=== PATIENT | female | born 1945 | race Caucasian/White ===

== ENCOUNTER → 2023-05-01 09:53 | Outpatient (REF) | payer OTHER, SELFPAY | LOC: HWRAD 09:53 | PROVIDERS: ATTENDING PHYSICIAN Urology; FAMILY PHYSICIAN Family Medicine | DX: A41.51 Sepsis due to Escherichia coli [E. coli] (principal); N39.41 Urge incontinence | CPT/HCPCS: 76770 ==

== ENCOUNTER → 2023-05-04 06:23 | Day surgery (SDC) | payer OTHER, SELFPAY | LOC: GI 06:23 | PROVIDERS: ATTENDING PHYSICIAN Internal Medicine Gastroenterology | DX: Z12.11 Encounter for screening for malignant neoplasm of colon (principal); K57.30 Diverticulosis of large intestine without perforation or abscess without bleeding; K64.8 Other hemorrhoids; K20.90 Esophagitis, unspecified without bleeding; K22.89 Other specified disease of esophagus; K31.89 Other diseases of stomach and duodenum; R13.10 Dysphagia, unspecified; Z86.010 Personal history of colon polyps; Z80.0 Family history of malignant neoplasm of digestive organs | CPT/HCPCS: 43239; G0105; 88305; 87220; 88342 ==

== ENCOUNTER → 2023-12-07 09:43 | Outpatient (REF) | payer OTHER, SELFPAY | LOC: RAD 09:43 | PROVIDERS: ATTENDING PHYSICIAN Surgery Vascular Surgery; FAMILY PHYSICIAN Family Medicine | DX: I65.23 Occlusion and stenosis of bilateral carotid arteries (principal) | CPT/HCPCS: 93880 ==

== ENCOUNTER 2023-12-30 08:49 | Day surgery (SDC) | payer OTHER, SELFPAY ==
[2023-12-30 09:54] VITALS: BP 151/64
[2023-12-30 10:02] VITALS: BMI 28.5
[2023-12-30 12:29] VITALS: BP 136/59
== END 2023-12-30 13:35 | disposition home or self-care (01) ==
LOC: CATH 08:49
PROVIDERS: ATTENDING PHYSICIAN Internal Medicine Cardiovascular Disease; FAMILY PHYSICIAN Family Medicine; OTHER PHYSICIAN Internal Medicine Cardiovascular Disease
DX: Z09 Encounter for follow-up examination after completed treatment for conditions other than malignant neoplasm (principal); R55 Syncope and collapse; I10 Essential (primary) hypertension; E78.00 Pure hypercholesterolemia, unspecified; Z87.891 Personal history of nicotine dependence; Z79.82 Long term (current) use of aspirin
CPT/HCPCS: 33286

== ENCOUNTER 2024-02-13 21:18 | Observation (INO) | payer OTHER, SELFPAY ==
[2024-02-13 11:49] VITALS: BP 159/77
--- NOTE | 2024-02-13 12:12 | ED.GENMED ---
History of Present Illness
<Isabel Daniels PA-C - Last Filed: 02/13/24 18:21>
General
Chief Complaint: Headache
Source: patient
Exam Limitations: none
Time Seen by Provider: 02/13/24 11:55
History of Present Illness
History of Present Illness:
78yoF with a history of hypertension and hyperlipidemia presenting with her daughter for evaluation of a headache. Patient was sitting on the couch watching TV last night around 10 PM when she had a fairly abrupt onset of a headache. She states
the pain was initially in her bilateral eye region. The pain then radiated up towards the top of her head. She was eventually able to go to bed but the pain was still present when she woke up this morning. Patient denies any history of similar
headaches in the past. She currently rates her pain as an 8/10 in severity. She describes the headache as feeling like a brain freeze. She also reports associated photophobia, phonophobia, and nausea. She also reports feeling dizzy when she
stands up which she describes as feeling 'shaky.' She denies any vertiginous symptoms or lightheadedness. She denies any vomiting, fevers, neck stiffness, weakness, paresthesias. No reported head trauma.
Past History
<Isabel Daniels PA-C - Last Filed: 02/13/24 18:21>
Past History
ED Past Medical History: Asthma, HTN and Hypercholesterolemia
ED Past Surgical History: Orthopedic and Urological
Social History
Tobacco: Non-smoker
Alcohol: None
Drug: None
Employment: Retired
Phy Exam
<Isabel Daniesl PA-C - Last Filed: 02/13/24 18:21>
Physical Exam
Physical Exam:
Sitting in a dark room, appears uncomfortable, non-toxic
General Physical Exam
General age: appears stated age
General Skin: warm and dry
General Habitus: elderly
General Mental: alert
ENT Exam
ENT Exam: TM's normal, neck supple and normocephalic
Additional ENT: No meningismus
Eye Exam
Eye Exam: PERRL, EOMI and other (Pressure 13mmHg in R eye, 14mmHg in L eye)
Pulmonary Exam
Pulmonary Exam: no respiratory distress
Neurological Exam
Neurological Exam: alert, CN II-XII intact, no motor deficits, speech normal and other (CN 2-12 intact. PERRL. EOMs intact. Negative driftx4. 5/5 strength in all extremities. No focal neuro deficit appreciated.)
Avinash Coma Scale
Eye Opening: Spontaneous
Verbal Response: Oriented
Motor Response: Obeys Commands
GCS Total Score: 15
Skin Exam
Skin Exam: normal color and warm/dry
Psychiatric Exam
Psychiatric Exam: normal mood/affect
<Gatito Mckeon MD - Last Filed: 02/13/24 18:17>
[place] Coma Scale
GCS Total Score: 15
Course
<Isabel Daniels PA-C - Last Filed: 02/13/24 18:21>
Orders/Labs/Results
Orders:
Orders
02/13/24 12:09
CT Head W/o Iv Contrast Urgent
Comment:
Reason For Exam: Acute headache
0.9% Sodium Chloride 500 ml [Nss] 500 ml IV BOLUS
Acetaminophen [Tylenol] 1,000 mg PO NOW STA
Magnesium Sulfate 2 Gram/50 ml [Magnesium Sulfate] 2 gram in 50 ml IV NOW
Ondansetron Injectable [Zofran] 4 mg IV NOW STA
02/13/24 12:15
Electrocardiogram (*1) Urgent
Reason for Study: Vertigo / Dizzy
EKG- Treatment ONCE
02/13/24 12:35
Magnesium Sulfate 2 Gram/50 ml [Magnesium Sulfate] 2 gram in 50 ml .ROUTE .STK-MED
02/13/24 12:39
Magnesium Sulfate 2 Gram/50 ml [Magnesium Sulfate] 2 gram in 50 ml .ROUTE .STK-MED
02/13/24 13:08
COVID-19 Antigen Urgent
Source: Nasal Swab
CRP [C-Reactive Protein] Urgent
Complete Blood Count/With Diff Urgent
Comprehensive Metabolic Panel Urgent
ESR [Erythrocyte Sed Rate] Urgent
Influenza A+B Rapid Molecular Urgent
SHAYLA Source: Nasal Swab
Specimen Description:
02/13/24 15:28
CT Head & Neck Angio W/wo IV Urgent
Comment:
Reason For Exam: Acute onset headache
0.9% Sodium Chloride 500 ml [Nss] 500 ml IV BOLUS
Dexamethasone Sod Phosphate [Decadron] 10 mg IV NOW STA
Ketorolac [Toradol] 15 mg IV NOW STA
02/13/24 18:12
NEUROLOGY CONSULT Routine
Consulting Provider: Matteo Choi
Was physician already notified: Yes
Abnormal Lab Results
02/13/24
13:08
Absolute Neuts (auto) 6.6 H 10^3/uL
(1.4-6.5)
Absolute Monos (auto) 1.0 H 10^3/uL
(0.1-0.6)
ESR 27 H mm/hour
(0-20)
Glucose 116 H mg/dl
(70-99)
Alkaline Phosphatase 127 H U/L
(38-126)
02/13/24 13:08
02/13/24 13:08
Vital Signs
Initial and Last Documented VS:
Initial Vital Signs
Temp Pulse Resp BP Pulse Ox
97.5 F 103 16 159/77 98
02/13/24 11:49 02/13/24 11:49 02/13/24 11:49 02/13/24 11:49 02/13/24 11:49
Last Documented Vital Signs
Temp Pulse Resp BP Pulse Ox
97.5 F 81 16 144/60 94
02/13/24 13:14 02/13/24 18:00 02/13/24 18:00 02/13/24 14:56 02/13/24 14:45
<Gatito Mckeon MD - Last Filed: 02/13/24 18:17>
Orders/Labs/Results
Orders:
Orders
02/13/24 12:09
CT Head W/o Iv Contrast Urgent
Comment:
Reason For Exam: Acute headache
0.9% Sodium Chloride 500 ml [Nss] 500 ml IV BOLUS
Acetaminophen [Tylenol] 1,000 mg PO NOW STA
Magnesium Sulfate 2 Gram/50 ml [Magnesium Sulfate] 2 gram in 50 ml IV NOW
Ondansetron Injectable [Zofran] 4 mg IV NOW STA
02/13/24 12:15
Electrocardiogram (*1) Urgent
Reason for Study: Vertigo / Dizzy
EKG- Treatment ONCE
02/13/24 12:35
Magnesium Sulfate 2 Gram/50 ml [Magnesium Sulfate] 2 gram in 50 ml .ROUTE .STK-MED
02/13/24 12:39
Magnesium Sulfate 2 Gram/50 ml [Magnesium Sulfate] 2 gram in 50 ml .ROUTE .STK-MED
02/13/24 13:08
COVID-19 Antigen Urgent
Source: Nasal Swab
CRP [C-Reactive Protein] Urgent
Complete Blood Count/With Diff Urgent
Comprehensive Metabolic Panel Urgent
ESR [Erythrocyte Sed Rate] Urgent
Influenza A+B Rapid Molecular Urgent
SHAYLA Source: Nasal Swab
Specimen Description:
02/13/24 15:28
CT Head & Neck Angio W/wo IV Urgent
Comment:
Reason For Exam: Acute onset headache
0.9% Sodium Chloride 500 ml [Nss] 500 ml IV BOLUS
Dexamethasone Sod Phosphate [Decadron] 10 mg IV NOW STA
Ketorolac [Toradol] 15 mg IV NOW STA
02/13/24 18:12
NEUROLOGY CONSULT Routine
Consulting Provider: Matteo Choi
Was physician already notified: Yes
Abnormal Lab Results
02/13/24
13:08
Absolute Neuts (auto) 6.6 H 10^3/uL
(1.4-6.5)
Absolute Monos (auto) 1.0 H 10^3/uL
(0.1-0.6)
ESR 27 H mm/hour
(0-20)
Glucose 116 H mg/dl
(70-99)
Alkaline Phosphatase 127 H U/L
(38-126)
02/13/24 13:08
02/13/24 13:08
Vital Signs
Initial and Last Documented VS:
Initial Vital Signs
Temp Pulse Resp BP Pulse Ox
97.5 F 103 16 159/77 98
02/13/24 11:49 02/13/24 11:49 02/13/24 11:49 02/13/24 11:49 02/13/24 11:49
Last Documented Vital Signs
Temp Pulse Resp BP Pulse Ox
97.5 F 81 16 144/60 94
02/13/24 13:14 02/13/24 18:00 02/13/24 18:00 02/13/24 14:56 02/13/24 14:45
[place];Isabel Daniels PA-C - Last Filed: 02/13/24 18:21>
MDM/Problems Addressed
Differential Diagnosis Includes:
78yoF here with an acute headache that started last night. Abrupt in onset. Associated with nausea, photophobia, phonophobia. No history of similar headaches in the past. She is mildly hypertensive with otherwise normal vital signs. She is sitting
in a dark room on exam and appears uncomfortable. No meningismus or focal neuro deficits noted. Differential diagnosis includes but is not limited to: glaucoma, intracranial hemorrhage, temporal arteritis, viral illness, migraine, tension headache
Initial ED plan: Check CBC, CMP, ESR/CRP, EKG, and CT head. Tylenol, Zofran, magnesium, and fluid bolus ordered for symptoms.
<Isabel Daniels PA-C - Last Filed: 02/13/24 18:21>
*EKG
Interpreted by ED Provider?: Yes
EKG Intrepretation Date: 02/13/24
Heart Rate: 88
Rate: normal
Rhythm: sinus
[place]: normal axis
Interval: normal interval
QRS Pattern: normal QRS
Ischemia: no ischemia
*Critical Care Note
Total Time (30-74mins, 75-104mins- exclusive of procedures): Not Applicable
<Isabel Daniels PA-C - Last Filed: 02/13/24 18:21>
Update Note
Update Note:
CT head is negative for acute findings. ESR mildly elevated at 27, CRP is normal. Patient feeling improved after initial medications but symptoms are still present. Headache now a 4-5/10 in severity. CTA head/neck added. Patient signed out to
Linda awaiting CTA results.
ED Attending Note
<Isabel Daniels PA-C - Last Filed: 02/13/24 18:21>
-
Portions of this chart may have been created with voice recognition software.� Occasional wrong word or��sound alike� substitutions may have occurred due to the inherent limitations of voice recognition software.
<Gatito Mckeon MD - Last Filed: 02/13/24 18:17>
ED Attending Note
Patient seen and examined by attending physician: Yes
ED Attending Note:
I have seen and evaluated the patient with a [id number] encounter. I have spoken to the advance practicer provider and involved in the medical history, the physical exam, medical decision making.
Evaluation and management service: agree unless noted differently below.
Results interpretation: agree unless noted differently below.
Focused HPI: 78-year-old female with history of hypertension hyperlipidemia, TIA who presents to the ER with her daughter for evaluation of headache. Patient reports abrupt onset of symptoms last night while she was sitting on the couch and have
been constant since that time. She reports headache was in the frontoparietal region. She describes 'like an intense brain freeze.' Symptoms were constant all night and she could not sleep and this morning she had associated dizziness and
significant photophobia, nausea. Came to the ER for assessment. She denies any trauma. She denies any eye pain. She denies any vision loss. She denies any neck pain or stiffness. She denies any focal weakness or numbness in the extremities.
She denies any difficulties with speech. She has never had similar symptoms in the past.
Physical exam: Awake and alert not in distress. Vital signs noted for hypertension in triage normalized by my assessment. She has no signs of trauma to the head. Her neck is supple without meningismus and she has no tenderness of the cervical
spine. Her pupils are equal round and reactive to light bilaterally and her extraocular movements are intact although she is markedly photosensitive. Cranial nerves are intact 2 through 12. Speech is fluid no dysarthria or aphasia. No limb
ataxia. Motor and sensory intact upper and lower extremities.
Medical Decision Makin-year-old female presents for evaluation of thunderclap headache started last night abruptly at rest and has been consistent and worsening. Vitals and exam as above. We sent off labs including a CBC and a CMP which were
unremarkable. ESR not markedly elevated. CT head negative for any acute pathology. CTA head and neck shows no aneurysm although incidental vascular disease. We did treat her symptomatically here and although his symptoms improved they have not
resolved. I long discussion with patient and daughter that she does appear very well after ED treatment. Diagnosis unclear at this point she did have some significant degenerative disease in the neck that could contribute to headache, could be
tension headache, could be migraine but unusual for new headache in a 78-year-old. They feel uneasy going home as she is still symptomatic and diagnosis unclear and I think this is reasonable. Will plan to admit, consult to neurology. Case
discussed with hospitalist.
Discharge Plan
Departure
Patient Disposition: Admit
Date of Disposition: 02/13/24
Time of Disposition: 18:17
Admit to doctor: Ger
Presentation/result/management discussed w/ accepting /DO: Hospitalist
Discharge Problem:
Intractable headache
Prescriptions:
No Action
sertraline 100 MG tablet
100 mg PO DAILY
dicyclomine 20 MG tablet
20 mg PO BID
diphenhydramine HCl [Banophen] 25 MG capsule
50 mg PO BIDPRN PRN (Reason: allergies)
cholecalciferol (vitamin D3) 2,000 UNITS tablet
4,000 units PO DAILY
fluticasone furoate-vilanterol [Breo Ellipta] 1 EACH blister with device
1 puff inhalation R DAILY
esomeprazole magnesium [Nexium] 20 MG capsule,delayed release(DR/EC)
20 mg PO BID
metoprolol succinate 50 mg tablet extended release 24 hr
50 mg PO DAILY
amlodipine 10 mg tablet
10 mg PO DAILY
albuterol sulfate 90 mcg/actuation HFA aerosol inhaler
2 puff INHALATION Q4HPRN PRN (Reason: shortness of breath)
mirabegron [Myrbetriq] 50 mg tablet extended release 24 hr
50 mg PO DAILY
Caltrate 600 plus D 600 mg-20 mcg (800 unit) Tablet,Chewable
1 tab PO DAILY
aspirin 81 MG tablet,delayed release (DR/EC)
81 mg PO DAILY
meloxicam 15 mg tablet
15 mg PO DAILY PRN (Reason: moderate pain)
ezetimibe 10 mg tablet
10 mg PO QPM
rosuvastatin 40 mg tablet
40 mg PO DAILY
acetaminophen 325 mg Tablet
650 mg PO Q4HPRN PRN (Reason: mild pain/MOORE/temp> 100.4F) Qty: 1 0RF
Referrals:
Sam Wheeler DO [Family Provider] -
Interventions
Interventions:
*Risk Screen - Suicide Last Done: 02/13/24 11:49
*General Assessment Last Done: 02/13/24 11:49
*Neglect/Abuse Screening Last Done: 02/13/24 11:49
ED- Fall Risk Assessment Last Done: 02/13/24 13:00
*ED COVID-19 Vaccine History Last Done: 02/13/24 13:00
ED- Neurological Assessment Last Done: 02/13/24 13:00
Discharge Date and Time
Print Language: CITIZEN OF [place]
[2024-02-13] MEDS: ZOFRAN 4 MG IV (12:58)
[2024-02-13] MEDS: NSS 500 IV ×2 (13:00→15:44)
[2024-02-13] MEDS: TYLENOL 1000 MG PO (13:00)
[2024-02-13] MEDS: MAGNESIUM SULFATE 50 IV (13:00)
[2024-02-13 13:13] VITALS: BMI 25.8
[2024-02-13 13:29] LABS: ALT (SGPT) 20 U/L (0-35); AST (SGOT) 31 U/L (14-36); Albumin 4.8 g/dl (3.5-5.0); Alkaline Phosphatase 127 U/L (38-126); Blood Urea Nitrogen 15 mg/dl (7-17); Calcium 9.5 mg/dl (8.4-10.2); Carbon Dioxide 28 mmol/L (22-30); Chloride 102 mmol/L (98-107); Estimated Creatinine Clearance 56 ml/min; Glucose 116 mg/dl (70-99); Potassium 4.3 mmol/L (3.5-5.1); Sodium 139 mmol/L (135-145); Total Bilirubin 0.4 mg/dl (0.2-1.3); Total Protein 7.8 g/dl (6.3-8.2); eGFR > 60.00
[2024-02-13 13:36] LABS: COVID-19 Antigen Negative (Negative)
[2024-02-13 13:48] LABS: Erythrocyte Sed Rate 27 mm/hour (0-20)
[2024-02-13 13:50] LABS: % Basophils 0.6 % (0-2); % Eosinophils 1.3 % (0-6); % Immature Granulocytes 0.4 % (0-0.5); % Lymphocytes 25.3 % (20.5-51.1); % Monocytes 9.2 % (1.7-9.3); % Neutrophils 63.2 % (42.2-75.2); Absolute Basophils 0.1 10^3/uL (0-0.2); Absolute Eosinophils 0.1 10^3/uL (0-0.7); Absolute Lymphocytes 2.7 10^3/uL (1.2-3.4); Absolute Neutrophils 6.6 10^3/uL (1.4-6.5); Hematocrit 43.7 % (37.0-47.0); Hemoglobin 14.5 g/dL (12.0-16.0); Mean Corp Hgb Conc. 33.2 g/dL (33.0-37.0); Mean Corpuscular Hgb 30.7 pg (27.0-31.0); Mean Corpuscular Volume 92.6 fL (81.0-99.0); Mean Platelet Volume 8.6 fL (7.4-10.4); Nucleated Red Blood Cells % 0 %; Platelet Count 330 10^3/uL (130-400); Red Blood Cell Count 4.72 10^6/uL (4.20-5.40); Red Cell Dist. Width 13.2 % (11.5-14.5); White Blood Cell Count 10.5 10^3/uL (4.8-10.8)
[2024-02-13 14:56] VITALS: BP 144/60
[2024-02-13] MEDS: DECADRON 10 MG IV (15:45)
[2024-02-13] MEDS: TORADOL 15 MG IV (15:45)
--- NOTE | 2024-02-13 18:49 | HPS.HSE ---
Family Physician
-
Family Physician: Sam Wheeler
Chief Complaint
-
Headache
History of Present Illness
This is a 78-year-old female with past medical history significant for asthma, hypertension, hyperlipidemia and osteoporosis who presents to the emergency department with new onset thunderclap headache.
Patient denies any prior history of headaches. Reports that she suddenly had nausea yesterday. She went to the bed to relax she developed a headache that is worsened with lights as well as sounds. She reports that the headache felt like a brain
freeze that travels across the forehead to the top of her head. It is continued to be associated with nausea but no vomiting. She denies any numbness or tingling. She denies any weakness in her extremities. The headaches persisted at home so she
decided to come to the emergency department. She denies any known exacerbating factors besides lights and sounds. Patient denies having any fever. She denies any neck stiffness. She denies any rash. She has no recent falls. She denies any
cough runny nose sinus congestion or sore throat. Unchanged in the 140s over 60s. She denies any palpitations.
On arrival in the emergency department she was afebrile, blood pressure was 144/60 with a pulse of 89. CBC was unremarkable. Electrolytes BUN/creatinine were also within normal limits. ECG shows normal sinus rhythm at a rate of 88. ESR was
negative. She had a CT of the head which shows no acute intracranial process, negative for bleed or mass. She had CT angio which shows no dissection, emboli/thrombus or aneurysm. After initial management in the ED the patient reports that she is
much improved.
Medical History
Past Medical History
Past Medical History: Reports Asthma, HTN and Hypercholesterolemia
Additional Past Medical History:
Osteoporosis
Past Surgical History: Reports Orthopedic and Urological
Social History
Tobacco: Non-smoker
Alcohol: None
Drug: None
Personal: Single
Living: With Family
Employment: Retired
Family History
Family History: Not pertinent
Allergies / Home Medications
Allergies reflects when Allergies were last updated in [employer].
Home Medications with original date entered in [employer]
Allergy/Medication List:
Allergies
Allergy/AdvReac Type Severity Reaction Status Date / Time
ibandronate sodium Allergy Nausea / Verified 02/13/24 13:06
[From [facility]] Vomiting
Home Medications
cholecalciferol (vitamin D3) 50 mcg (2,000 unit) tablet 4,000 units PO DAILY Supplement 10/19/19
dicyclomine 20 mg tablet 20 mg PO BID Gastrointestinal Issue 10/19/19
esomeprazole magnesium 20 mg capsule,delayed release (Nexium) 40 mg PO DAILY Gastrointestinal issue 10/19/19
sertraline 100 mg tablet 100 mg PO DAILY Depression 10/19/19
albuterol sulfate 90 mcg/actuation aerosol inhaler 2 puff inhalation R Q4HPRN PRN shortness of breath 09/15/22
amlodipine 10 mg tablet 10 mg PO DAILY Blood Pressure 09/15/22
aspirin 81 mg tablet,delayed release 81 mg PO DAILY Blood Clot Prevention/Tx 09/15/22
calcium 600 mg (as carbonate)-vit D3 20 mcg (800 unit) chewable tablet (Caltrate plus D) 1 tab PO DAILY Supplement 09/15/22
metoprolol succinate 50 mg tablet,extended release 24 hr 50 mg PO DAILY Blood Pressure 09/15/22
mirabegron 50 mg tablet,extended release 24 hr (Myrbetriq) 50 mg PO DAILY Urinary Issue 09/15/22
ezetimibe 10 mg tablet 10 mg PO DAILY 02/13/23
meloxicam 15 mg tablet 15 mg PO DAILYPRN PRN moderate pain 02/13/23
rosuvastatin 40 mg tablet 40 mg PO HS 02/13/23
acetaminophen 500 mg tablet 1,000 mg PO BIDPRN PRN mild pain 02/13/24
famotidine 40 mg tablet 40 mg PO DAILY 02/13/24
fluticasone furoate 200 mcg-vilanterol 25 mcg/dose inhalation powder (Breo Ellipta) 1 inh inhalation R DAILY 02/13/24
Review of Systems
-
History Source: Patient
Constitutional: Reports No Symptoms
EENT: Reports No Symptoms
Respiratory: Reports No Symptoms
Cardiac: Reports No Symptoms
Abdomen/GI: Reports Nausea
: Reports No Symptoms
Musculoskeletal: Reports No Symptoms
Skin: Reports No Symptoms
Neurological: Reports Headache
Endocrine: Reports No Symptoms
Hematologic/Lymphatic: Reports No Symptoms
Psych: Reports No Symptoms
Physical Exam
Vital Signs
Vital Signs
Temp Pulse Resp BP Pulse Ox
97.5 F 81 16 144/60 94
02/13/24 13:14 02/13/24 18:00 02/13/24 18:00 02/13/24 14:56 02/13/24 14:45
Physical Exam
General: Well Developed, Well Nourished and Comfortable
HEENT: NormoCephalic, Anicteric, Moist mucous membranes and Atraumatic
Respiratory: Clear
Cardiac: S1/S2 and Regular Rhythm
Breast: Deferred by me
GI: Soft, Non Tender, Non Distended and Normal Bowel Sounds
Rectal: Deferred by Provider
Genito-urinary: Deferred by me
Musculoskeletal: No Clubbing, No Cyanosis and No Edema
Skin: Warm
Neuro: AO x 3, No Motor Deficits, Cranial Nerves Intact and No Sensory Deficits
Hematologic/Lymphatic: No Lymphadenopathy
Psych: Calm
Laboratory Results
-
02/13/24 13:08
02/13/24 13:08
Laboratory Results
Total Bilirubin 0.4 mg/dl (0.2-1.3) 02/13/24 13:08
AST 31 U/L (14-36) 02/13/24 13:08
ALT 20 U/L (0-35) 02/13/24 13:08
Alkaline Phosphatase 127 U/L (38-126) H 02/13/24 13:08
Data Reviewed
-
CT Scan: Report Reviewed by me
Medical Tests (Nuc Med, Echo, EKG etc): Image Personally Visualized and interpreted
Lab Data: Labs Reviewed by me
Old Records: Reviewed
Impression/Plan
-
IMPRESSION:
78 y.o female with abrupt development of severe headache associated with nausea, photophobia and phonophobia. No precipitating event. Not positional and no acute neurological deficits. She has no systemic symptoms, h/o neoplasm or trauma. Imaging
in ED rules out intracranial hemorrhage, dissection, aneurysm or a obvious mass. No neck stiffness, fevers or rash, no leukocytosis. No evidence of acute infection. Mental status is normal and no evidence of encephalopathy or encephalitis. ESR
is not elevated and patient without visual complaints. The remaining alarming concerns are age after 50 and no prior history. May need further neurological evaluation as unlikely late onset development of migraines.
PLAN:
Headache -
- admit to med/surg
- neurology consult
- hold off further imaging pending neurology
- analgesics with toradol/metoclopromide as needed
- DVT ppx with scd for now
HTN
- BP is well controlled, continue norvasc and metoprolol
Has h/o TIAs but no current evidence of such. continue aspirin/statin
Continue home asthma management
Code status - full code
[2024-02-14] MEDS: CRESTOR 40 MG PO (01:05)
[2024-02-14] MEDS: TUMS CHEWABLE TABLET 200 MG PO (03:50)
[2024-02-14] MEDS: TORADOL 15 MG IV (03:52)
[2024-02-14] MEDS: REGLAN 10 MG IV (03:53)
[2024-02-14 06:00] VITALS: BMI 25.8
[2024-02-14 07:32] VITALS: BP 119/62
[2024-02-14] MEDS: SYMBICORT 160/4.5 MCG INHALER 2 PUFF INH (07:59)
[2024-02-14] MEDS: ZOLOFT 100 MG PO (08:28)
[2024-02-14] MEDS: PEPCID 40 MG PO (08:28)
[2024-02-14] MEDS: TOPROL XL 50 MG PO (08:28)
[2024-02-14] MEDS: MYRBETRIQ EXTENDED RELEASE 50 MG PO (08:28)
[2024-02-14] MEDS: ZETIA 10 MG PO (08:28)
[2024-02-14] MEDS: PROTONIX 40 MG PO (08:28)
[2024-02-14] MEDS: ASPIR LOW (ENTERIC COATED) 81 MG PO (08:28)
[2024-02-14] MEDS: NORVASC 10 MG PO (08:29)
--- NOTE | 2024-02-14 13:17 | CON.NEURO ---
Neuro Assessment/Plan
Assessment
head CT imgs rev'd, extensive white matter microvascular changes
CTA head/neck showing Left carotid bifurcation 50-70%, Left ECA >70% stenosis, all presently appearing asymptomatic, continue yearly vascular follow up
new onset migraine in a 78 year old woman, now resolved. unusual for migraines to present at this age; outpatient brain MRI is indicated, and patient is agreeable; she has a bladder stimulator; doesn't have remote to turn it off with her
Plan
ok to discharge home, Outpatient MRI brain without contrast
Consultation
Order
Date of Consultation: 02/14/24
Requesting Provider: Radha Carvajal
Reason for Consult: headache
Subjective/Objective
Subjective Data
Date of Service: February 14, 2024
This is a 78-year-old female with past medical history significant for asthma, hypertension, hyperlipidemia and osteoporosis who presents to the emergency department with new onset thunderclap headache. She denies prior history of headache. headache
began suddenly 2 days ago, feels like brain freeze across her forehead. throbbing, with photophobia, phonophobia, nausea.
no neck pain, weakness, numbness, speech changes. In the ED she received toradol, reglan, benadryl and headache resolved.
Objective Data
Vital Signs
Temp Pulse Resp BP Pulse Ox
36.7 C 96 18 141/62 97
02/14/24 07:32 02/14/24 09:07 02/14/24 09:07 02/14/24 08:29 02/14/24 09:07
Lab Results
02/13/24 13:08
02/13/24 13:08
Sodium 139 mmol/L (135-145) 02/13/24 13:08
Potassium 4.3 mmol/L (3.5-5.1) 02/13/24 13:08
BUN 15 mg/dl (7-17) 02/13/24 13:08
Glucose 116 mg/dl (70-99) H 02/13/24 13:08
Calcium 9.5 mg/dl (8.4-10.2) 02/13/24 13:08
Patient Allergies
ibandronate sodium [From Bon[facility]] Allergy (Verified 02/13/24 13:06)
Nausea / Vomiting
Physical Exam
-
AAOx3, speech clear, language intact
VFF, EOMI, face symmetric
full strength b/l UE/LE
sensation intact to touch/pin
DTR 1+ symmetric
Medications
-
Active Medications
Generic Name Dose Route Start Last Admin
Trade Name Freq PRN Reason Stop Dose Admin
Acetaminophen 650 mg 02/13/24 22:34
Acetaminophen 325 Mg Tablet PO 03/12/24 22:33
Q4HPRN PRN
mild pain/MOORE/temp> 100.4F
Albuterol 2 puff 02/13/24 22:34
Albuterol Hfa [90 Mcg/Dose] Inhaler INH
R Q4HPRN PRN
shortness of breath
Protocol
Amlodipine Besylate 10 mg 02/14/24 08:00 02/14/24 08:29
Amlodipine 10 Mg Tablet PO 03/13/24 07:59 10 mg
DAILY ROB Administration
Aspirin 81 mg 02/14/24 08:00 02/14/24 08:28
Aspirin 81 Mg (Enteric Coated) Tablet PO 03/13/24 07:59 81 mg
DAILY ROB Administration
Budesonide/Formoterol Fumarate 2 puff 02/14/24 08:00 02/14/24 07:59
Symbicort Inhaler 160/4.5 INH 03/13/24 07:59 2 puff
R BID ROB Administration
Ezetimibe 10 mg 02/14/24 08:00 02/14/24 08:28
Ezetimibe (Zetia) 10 Mg Tablet PO 03/13/24 07:59 10 mg
DAILY ROB Administration
Famotidine 40 mg 02/14/24 08:00 02/14/24 08:28
Famotidine 40 Mg Tablet PO 03/13/24 07:59 40 mg
DAILY ROB Administration
Ketorolac Tromethamine 15 mg 02/13/24 22:34 02/14/24 03:52
Ketorolac 15 Mg/Ml Injection IV 02/18/24 22:33 15 mg
Q6HPRN PRN Administration
moderate pain
Metoclopramide HCl 10 mg 02/13/24 22:34 02/14/24 03:53
Metoclopramide 10 Mg/2 Ml Vial IV 03/12/24 22:33 10 mg
Q6HPRN PRN Administration
nausea or headache
Metoprolol Succinate 50 mg 02/14/24 08:00 02/14/24 08:28
Metoprolol 50 Mg Extended Release Tablet PO 03/13/24 07:59 50 mg
DAILY ROB Administration
Mirabegron 50 mg 02/14/24 08:00 02/14/24 08:28
Mirabegron Extended Release 25 Mg Tab (Non Form) PO 03/13/24 07:59 50 mg
DAILY ROB Administration
Pantoprazole Sodium 40 mg 02/14/24 08:00 02/14/24 08:28
Pantoprazole 40 Mg Delayed Release Tablet PO 03/13/24 07:59 40 mg
DAILY ROB Administration
Rosuvastatin Calcium 40 mg 02/13/24 22:34 02/14/24 01:05
Rosuvastatin (Crestor) 40 Mg Tablet PO 03/12/24 22:33 40 mg
HS ROB Administration
Sertraline HCl 100 mg 02/14/24 08:00 02/14/24 08:28
Sertraline 100 Mg Tablet PO 03/13/24 07:59 100 mg
DAILY ROB Administration
Sodium Chloride 0 flush 02/13/24 22:00
Sodium Chloride 0.9% (Flush) Syringe IV 03/12/24 21:59
PER PROTOCOL ROB
Home Medications
�Medication �Instructions �Recorded
cholecalciferol (vitamin D3) 50 4,000 units PO DAILY Supplement 10/19/19
mcg (2,000 unit) tablet
dicyclomine 20 mg tablet 20 mg PO BID Gastrointestinal Issue 10/19/19
esomeprazole magnesium 20 mg 40 mg PO DAILY Gastrointestinal 10/19/19
capsule,delayed release (Nexium) issue
sertraline 100 mg tablet 100 mg PO DAILY Depression 10/19/19
albuterol sulfate 90 mcg/actuation 2 puff inhalation R Q4HPRN PRN 09/15/22
aerosol inhaler shortness of breath
amlodipine 10 mg tablet 10 mg PO DAILY Blood Pressure 09/15/22
aspirin 81 mg tablet,delayed 81 mg PO DAILY Blood Clot 09/15/22
release Prevention/Tx
calcium 600 mg (as carbonate)-vit 1 tab PO DAILY Supplement 09/15/22
D3 20 mcg (800 unit) chewable
tablet (Caltrate plus D)
metoprolol succinate 50 mg 50 mg PO DAILY Blood Pressure 09/15/22
tablet,extended release 24 hr
mirabegron 50 mg tablet,extended 50 mg PO DAILY Urinary Issue 09/15/22
release 24 hr (Myrbetriq)
ezetimibe 10 mg tablet 10 mg PO DAILY High Cholesterol 02/13/23
meloxicam 15 mg tablet 15 mg PO DAILYPRN PRN moderate pain 02/13/23
rosuvastatin 40 mg tablet 40 mg PO HS High Cholesterol 02/13/23
acetaminophen 500 mg tablet 1,000 mg PO BIDPRN PRN mild pain 02/13/24
famotidine 40 mg tablet 40 mg PO DAILY Gastrointestinal 02/13/24
Issue
fluticasone furoate 200 1 inh inhalation R DAILY 02/13/24
mcg-vilanterol 25 mcg/dose Lung/Breathing Issues
inhalation powder (Breo Ellipta)
--- NOTE | 2024-02-14 14:13 | W.PN.HOSP.TC ---
Addendum entered and electronically signed by Radha Carvajal MD 02/14/24 16:18:
I saw and evaluated the patient independently. I reviewed the resident�s note and agree with findings and plan as documented by Dr. Barragan.
GENERAL: well developed, well nourished, female in no apparent distress
HEENT: NC/AT--no photophobia or phonophobia
HEART: regular rate and rhythm, +S1, +S2
LUNGS : clear to auscultation bilaterally
ABDOM: soft, nontender, nondistended, + bowel sounds
EXT: no cyanosis, clubbing, or edema
NEUROLOGIC: grossly intact
Headache --unclear cause--new onset migraine?--apprec neuro--head CT without acute findings--outpt MRI and neuro followup-- CTA Head: Severe calcific atherosclerotic plaque in the left carotid bifurcation causing (1) 50-70% diameter stenosis in the
proximal left ICA and (2) greater than 70% diameter stenosis in the proximal left ECA.
Essential HTN - Continue Norvasc/Metoprolol
Asthma without exacerbation- Continue Home Meds
History of TIAs- No evidence of such clinically or on radiology- Continue ASA/Statin
code status -- FULL CODE
Original Note:
Today's Communication/Plan
-
.
Assessment / Plan
Assessment / Plan
1. Headache
- CT Head w/o contrast: no acute intracranial pathology
- CTA Head: Severe calcific atherosclerotic plaque in the left carotid bifurcation causing (1) 50-70% diameter stenosis in the proximal left ICA and (2) greater than 70% diameter stenosis in the proximal left ECA.
- Neurology consulted, appreciate reccs:
- New onset migraine; ok to discharge home, Outpatient MRI brain without contrast
- follow up with PCP and neurology outpatient
2. Essential HTN
- Continue Norvasc/Metoprolol
3. Asthma
- Continue Home Meds
4. History of TIAs
- No evidence of such clinically or on radiology
- Continue ASA/Statin
Anticipated Discharge: Today
Subjective/Interval History
-
Date of Service: February 14, 2024
Patient seen and examined while resting comfortably in ED bed. Patient repeated history to me. Briefly, patient felt lightheaded and dizzy 2 nights ago and upon going to her bedroom to watch TV, started having phonophobia and photophobia and
headache. Headache described as a 'brainfreeze' type of sensation and was distinctly located on the midline of the forehead and top of the head. The next morning the patients son and daughter in law told her she should go to the emergency dept.
Patient denied weakness, numbness, tingling, neck stiffness, rash, trauma, sx of URI.
ED Course: BP 144/60, CBC nl BMP nl EKG nl ESR nl, CT Head: no acute intracranial pathology. CTA Head: no acute intracranial pathology, severe calcific atherosclerotic plaque at the left carotid bifurcation.
This morning, the patient states that she is feeling better. She says her headache is improved, and although she is sitting in the dark, she did not feel photophobic for the 15 minutes I was in the room interviewing her.
Objective Data
-
Vital Signs:
Vital Signs
Temp Pulse Resp BP Pulse Ox
98.1 F 96 18 141/62 97
02/14/24 07:32 02/14/24 09:07 02/14/24 09:07 02/14/24 08:29 02/14/24 09:07
I&O
02/13/24 02/14/24 02/15/24
06:59 06:59 06:59
Intake Total 220 / 220 530 / 530
Balance 220 / 220 530 / 530
Review of Systems
-
History Source: Patient
Constitutional: Reports No Symptoms
EENT: Reports No Symptoms Reported
Respiratory: Reports No Symptoms
Cardiac: Reports No Symptoms
Abdomen/GI: Reports No Symptoms
Musculoskeletal: Reports No Symptoms
Neuro: Reports No Symptoms
Physical Exam
-
General: No Apparent Distress, Comfortable and Other (sitting in the dark, but allowed me to turn on the lights without issue)
HEENT: Normocephalic, Atraumatic and Other (EOMI, PERRLA, no carotid bruit appreciated)
Respiratory: Clear to Auscultation
Cardiac: Regular Rhythm and S1/S2
GI: Soft and Nontender
Musculoskeletal: No Clubbing, No Cyanosis and No Edema
Skin: Warm
Neuro: Awake, Alert, Oriented, No Motor Deficits and Nonfocal/Grossly Intact
Psych: Calm
Data Reviewed
-
CT Scan: Report Reviewed by me and Discussed with Patient
Labs: Labs Reviewed by me and Discussed with Patient
[2024-02-14 14:33] VITALS: BP 127/48
--- NOTE | 2024-02-14 15:39 | CM ---
Chart review completed
CM attempted to meet with pt bedside for assessment and issue RODRIGUEZ notice
Pt discharged per nursing- was independent with ambulation
No dc needs noted
RODRIGUEZ not issued
Discharge Disposition- home, no needs, family transport
--- NOTE | 2024-02-14 16:12 | W.DCSUMMARY ---
Addendum entered and electronically signed by Radha Carvajal MD 02/14/24 16:27:
Read, reviewed, and agree. See same day progress note for additional details. Time spent coordinating care, DC planning, review of DC plan of care with resident, transition of care, review of records in EMR, med rec, consults, notes, d/w
consultants, nursing, family, and CM = 25 minutes
Original Note:
Discharge Summary
Discharge Data
Date of Admission: 02/13/24
Date of Discharge: 02/14/24
Total time spent discharging patient (in min): 25
-
Pending Results: No
Hospital Course
Amber Ta is a 78-year-old female with a past medical history of asthma, hypertension, hyperlipidemia, and osteoporosis who presented to the emergency department on 02/13/2024 with headache. The patient denied any prior history of headaches but
reported that 1 night prior to arrival she had an episode of nausea, dizziness, and lightheadedness. Upon changing rooms to watch TV in her bedroom, the patient noted photophobia and photophobia. The headache was described as a 'brain freeze' like
sensation. It was not associated with any numbness, tingling, or weakness. The next day, the patient's son and [id number] advised her to come to the emergency department. On arrival to the emergency department, the patient was afebrile,
blood pressure was 144/60, CBC was unremarkable, metabolic panel was unremarkable, and EKG showed a sinus rhythm at a rate of 88. ESR the patient had a CT of the head which showed no acute intracranial for bleed or mass. Subsequent CT showed no
dissection, embolus, thrombus, or aneurysm. After initial management in the emergency department, the patient reported that her condition was much improved. Still, the patient was admitted for neurological workup and consultation by neurologist.
The neurologist diagnosed her with new onset migraine and recommended that the patient follow-up on an outpatient basis for an MRI. The patient was agreeable. The patient was discharged from [facility] on 02/14/2024 for outpatient follow-up
with her primary care provider and neurologist.
Please note that the CT angiogram of the head did show severe calcific atherosclerotic plaque in the left carotid bifurcation causing a 50-70% diameter stenosis in the proximal left internal carotid artery and a greater than 70% diameter stenosis in
the proximal left external carotid artery. This finding should be followed up by the patient's primary care provider.
Discharge Plan
-
Patient Disposition: Home (Routine Discharge)
Discharge Diagnosis/Procedures: Migraine
Condition: Fair
Diet: Regular
Activity: No restrictions
Others Tests: Patient to get an outpatient MRI of the Head/Brain
Referrals:
Sam Wheeler DO [Family Provider] - in less than 1 week
Prescriptions:
New
ondansetron 4 mg tablet,disintegrating
4 mg PO Q8H PRN (Reason: nausea/vomiting) Qty: 10 0RF
Continued
sertraline 100 MG tablet
100 mg PO DAILY
dicyclomine 20 MG tablet
20 mg PO BID
cholecalciferol (vitamin D3) 2,000 UNITS tablet
4,000 units PO DAILY
esomeprazole magnesium [Nexium] 20 MG capsule,delayed release(DR/EC)
40 mg PO DAILY
metoprolol succinate 50 mg tablet extended release 24 hr
50 mg PO DAILY
amlodipine 10 mg tablet
10 mg PO DAILY
albuterol sulfate 90 mcg/actuation HFA aerosol inhaler
2 puff INHALATION R Q4HPRN PRN (Reason: shortness of breath)
mirabegron [Myrbetriq] 50 mg tablet extended release 24 hr
50 mg PO DAILY
Caltrate 600 plus D 600 mg-20 mcg (800 unit) Tablet,Chewable
1 tab PO DAILY
aspirin 81 MG tablet,delayed release (DR/EC)
81 mg PO DAILY
meloxicam 15 mg tablet
15 mg PO DAILYPRN PRN (Reason: moderate pain)
ezetimibe 10 mg tablet
10 mg PO DAILY
rosuvastatin 40 mg tablet
40 mg PO HS
famotidine 40 mg Tablet
40 mg PO DAILY
acetaminophen 500 mg Tablet
1,000 mg PO BIDPRN PRN (Reason: mild pain)
fluticasone furoate-vilanterol [Breo Ellipta] 200-25 mcg/dose Blister With Device
1 inh INHALATION R DAILY
Discharge Orders:
Discharge Patient (As Directed); Ordered 02/14/24
Ordered By: Anoop Barragan
Discharge Date and Time
Discharge Date/Time: 02/14/24 15:30
Print Language: CZECH
== END 2024-02-14 15:30 | disposition home or self-care (01) ==
LOC: ED 21:18
PROVIDERS: Physician Assistant; ADMITTING PHYSICIAN Internal Medicine; ATTENDING PHYSICIAN Internal Medicine; CONSULT PHYSICIAN Psychiatry & Neurology Clinical Neurophysiology; EMERGENCY PHYSICIAN Emergency Medicine; FAMILY PHYSICIAN Family Medicine
DX: G43.909 Migraine, unspecified, not intractable, without status migrainosus (principal); I10 Essential (primary) hypertension; E78.00 Pure hypercholesterolemia, unspecified; H53.149 Visual discomfort, unspecified; R11.0 Nausea; J45.909 Unspecified asthma, uncomplicated; I67.81 Acute cerebrovascular insufficiency; M85.2 Hyperostosis of skull; I65.23 Occlusion and stenosis of bilateral carotid arteries; M50.023 Cervical disc disorder at C6-C7 level with myelopathy; M48.02 Spinal stenosis, cervical region; M25.78 Osteophyte, vertebrae; M81.0 Age-related osteoporosis without current pathological fracture; Z86.73 Personal history of transient ischemic attack (TIA), and cerebral infarction without residual deficits; Z79.51 Long term (current) use of inhaled steroids; Z79.82 Long term (current) use of aspirin; Z88.8 Allergy status to other drugs, medicaments and biological substances; Z11.52 Encounter for screening for COVID-19
CPT/HCPCS: 70450; 70496; 70498; 80053; 85025; 85652; 86140; 87502; 87811; 93005; 94640; 96374; 96375; 99285; G0378; Q9967

== ENCOUNTER → 2024-04-27 12:47 | Outpatient (REF) | payer OTHER, SELFPAY | LOC: PAVMRI 12:47 | PROVIDERS: ATTENDING PHYSICIAN Nurse Practitioner Adult Health; FAMILY PHYSICIAN Family Medicine | DX: R55 Syncope and collapse (principal); G44.89 Other headache syndrome | CPT/HCPCS: 70553; A9575 ==

== ENCOUNTER → 2024-07-14 12:29 | Outpatient (REF) | payer OTHER, SELFPAY | LOC: PAVMRI 12:29 | PROVIDERS: ATTENDING PHYSICIAN Nurse Practitioner Adult Health; FAMILY PHYSICIAN Family Medicine | DX: M50.10 Cervical disc disorder with radiculopathy, unspecified cervical region (principal) | CPT/HCPCS: 72050; 72141 ==

== ENCOUNTER → 2024-12-12 13:55 | Outpatient (REF) | payer OTHER, SELFPAY | LOC: PAVMRI 13:55 | PROVIDERS: ATTENDING PHYSICIAN Nurse Practitioner Adult Health; FAMILY PHYSICIAN Family Medicine | DX: M85.611 Other cyst of bone, right shoulder (principal); R93.6 Abnormal findings on diagnostic imaging of limbs | CPT/HCPCS: 73030; 73221 ==

== ENCOUNTER 2024-12-16 12:22 | Inpatient (IN) | payer OTHER, SELFPAY ==
[2024-12-16] VITALS (83 sets, daily range): BP systolic 143–192; BP diastolic 54–115; BMI 29.9; BMI 28.4
--- NOTE | 2024-12-16 09:54 | ED.GENMED ---
History of Present Illness
General
Chief Complaint: Headache
Time Seen by Provider: 12/16/24 09:09
History of Present Illness
History of Present Illness:
79-year-old female with history of high blood pressure and history of TIA on aspirin presenting to the emergency department for headache. Patient reports onset of headache yesterday afternoon. Denies exertional onset. Patient's headache has been
gradually worsening, over the left eye with some blurred vision. She has since also developed numbness to the right upper and lower extremity. Son at bedside feels that patient is slightly more confused. There is somewhat of a remote history of
migraine with patient having similar presentation about a year ago, at which time she had negative neurologic workup. However, at that time, noted to not have neurologic symptoms including numbness or weakness. Patient called her primary care
doctor who prescribed her a triptan medication, without relief. Denies fever. Denies any recent fall or trauma. Denies chest pain or difficulty breathing or additional acute medical complaints
Past History
Past History
ED Past Medical History: Asthma, HTN and Hypercholesterolemia
ED Past Surgical History: Orthopedic and Urological
Social History
Tobacco: Non-smoker
Alcohol: None
Drug: None
Employment: Retired
Phy Exam
Physical Exam
Physical Exam:
General: Well-appearing, no clinical signs of dehydration, nontoxic and in no acute distress
HEENT: protecting airway, pupils equal and reactive, extraocular movements intact
Neck: appears supple
CV: Normal heart rate, regular rhythm
Resp: No accessory muscle use, no increased work of breathing, lungs clear to auscultation bilaterally
Abd: No distention
Extremities: No deformities or swelling
Neuro: alert, 4/5 weakness to bilateral upper and lower extremities with diminished sensation in comparison to the left
: deferred
Rectal: deferred
Psych: Normal affect
Skin: Intact
NIH Stroke Score
Level of Consciousness: 0 - Alert
LOC questions: 0-Answers both correctly
LOC Commands: 0-Performs both correctly
Best Gaze: 0-Normal
Visual Díaz: 0=Normal, no visual loss
Facial palsy: 0=Normal, symmetrical
Motor - Right Arm: 0=No drift 10 seconds
Motor - Left Arm: 0=No drift 10 seconds
Motor - Right Le-Drift < 5 seconds
Motor - Left Le-No drift 5 seconds
Limb Ataxia: 2-Present in two limbs
Sensation: 1-Mild loss
Best Language: 0-No aphasia
Dysarthria: 0-Normal
Extinction and Inattention: 0-No abnormality
Total Score:: 4
Scores
NIH Stroke Score
Level of Consciousness: 0 - Alert
LOC Questions: 0-Answers both correctly
LOC Commands: 0-Performs both correctly
Best Horizontal Gaze: 0-Normal
Visual Díaz: 2=Full hemianopia
Facial Palsy: 0=Normal, symmetrical
Motor - Right Arm: 0=No drift 10 seconds
Motor - Left Arm: 0=No drift 10 seconds
Motor - Right Le-Drift < 5 seconds
Motor - Left Le-No drift 5 seconds
Limb Ataxia: 2-Present in two limbs
Sensation: 1-Mild loss
Best Language: 0-No aphasia
Dysarthria: 0-Normal
Extinction and Inattention: 0-No abnormality
NIH Total Score:: 6
Course
Orders/Labs/Results
Orders:
Orders
12/16/24
CT Head W/o Iv Contrast Urgent
Comment: order put back in due to original being cx by provider
Reason For Exam: LT sided grossman, rt sided weakness; hx tia
12/16/24 09:44
Electrocardiogram (*1) Stat
Reason for Study: Other
Other Reason for Exam: neuro symptoms
EKG- Treatment ONCE
12/16/24 09:53
Complete Blood Count/With Diff Urgent
Comprehensive Metabolic Panel Urgent
PTT Urgent
Prothrombin Time Urgent
12/16/24 10:58
Aspirin 325 mg PO NOW STA
Clopidogrel Bisulfate [Plavix] 300 mg PO NOW STA
12/16/24 11:22
CT BRAIN PERF STROKE ALERT Urgent
Comment:
Reason For Exam: aphasia
CT HEAD/NECK ANG STROKE ALERT Stat
Comment:
Reason For Exam: stenosis
12/16/24 11:53
Tenecteplase [Tnkase] 17 mg Syringe [Syringe Non-Pump] 0 ml IV NOW
Provider explained risk/benefits to patient &/or caregiver?: Yes
Blood pressure: 190/79
12/16/24 12:03
Admit/Transfer Patient As Directed
Co-Sign Provider:
Level of Care: Inpatient admission
Assign to:: ICU
Physician / Group: Dr Dumas
Diagnosis: Stroke
Reason for Hospitalization: Stroke
Expected length of stay greater than two midnights?: Yes
ELOS- Estimated Length of Stay in days: 2
I certify the patient meets the requirements for IP care: Yes
PRN Pain Medication Management As Directed
May give lesser potent ordered pain med per pt: Yes
preference::
Protocol:: Medication orders for pain may be administered in a
manner that supports deferring to patient preference
when the pt is:
- Requesting an ordered lesser potent pain medication.
Least to most potent pain medications are defined
as: acetaminophen < NSAID < tramadol < opioids
(morphine, oxycodone, hydromorphone).
- Requesting a lesser dose of the same medication IF
ORDERED.
- Requesting a less intrusive route of administration
if both routes are prescribed by the provider (PO <
IV).
12/16/24 12:04
Code Status As Directed
Resuscitation Status: Full Code
Abnormal Lab Results
12/16/24
09:53
Absolute Neuts (auto) 7.0 H 10^3/uL
(1.4-6.5)
Absolute Monos (auto) 0.8 H 10^3/uL
(0.1-0.6)
Glucose 104 H mg/dl
(70-99)
Alkaline Phosphatase 132 H U/L
(38-126)
12/16/24 09:53
12/16/24 09:53
Vital Signs
Initial and Last Documented VS:
Initial Vital Signs
Temp Pulse Resp BP Pulse Ox
98.4 F 79 18 190/79 98
12/16/24 08:50 12/16/24 08:50 12/16/24 08:50 12/16/24 08:50 12/16/24 08:50
Last Documented Vital Signs
Temp Pulse Resp BP Pulse Ox
98.4 F 98 20 175/63 95
12/16/24 08:50 12/16/24 13:09 12/16/24 13:00 12/16/24 13:09 12/16/24 13:00
MDM/Problems Addressed
MDM/Problems Addressed:
79-year-old female with history of hypertension presenting to the emergency department for headache and numbness to the right side of her body. Vital signs on arrival are significant for high blood pressure
On exam, patient is in no acute distress, however slightly uncomfortable from her headache. Patient with abnormal neurologic findings on exam with dysmetria on finger-nose testing on the right side with diminished sensation to the right upper and
lower extremity, as well as drift to the right lower extremity. Symptom onset yesterday afternoon, so patient currently out of the window for TNK. However, concern for acute CVA. Will send urgently to CT. Complex migraine is a consideration with
similar symptoms about a year ago. However at that time, noted to have no significant neurologic deficits.
10:50 -patient with large subacute stroke to the left parietal and occipital region of the brain, consistent with symptoms. Did message neurology will come evaluate. CT angio and CT perfusion canceled, and discussion with radiology.
11:20 - Neurology to bedside, recommending that we now call a stroke alert and obtain the CTA angio and CT perfusion to ensure no salvageable brain tissue
11:50 -CT perfusion shows salvageable brain tissue. This reason, plan for administration of TNK. Patient will be upgraded to ICU status
*Pulse Oximetry
SaO2: 98
Oxygen Mode of Delivery: Room air
Patient hypoxic: no
*Critical Care Note
Total Time (30-74mins, 75-104mins- exclusive of procedures): 42
comment:
The high probability of a clinically significant, sudden or life threatening deterioration of the neurovascular system(s) required my full and direct attention, intervention and personal management. The aggregate critical care time was 42 minutes.
This time is in addition to time spent performing reported procedures but includes the following:
[x] Data Review and interpretation
[x] Patient assessment and monitoring of vital signs
[x] Documentation
[x] Medication orders and management
ED Attending Note
-
Portions of this chart may have been created with voice recognition software.� Occasional wrong word or��sound alike� substitutions may have occurred due to the inherent limitations of voice recognition software.
Discharge Plan
Departure
Patient Disposition: Admit
Date of Disposition: 12/16/24
Time of Disposition: 11:03
Presentation/result/management discussed w/ accepting MD/DO: Hospitalist
Patient with high blood pressure during this ER visit?: Yes
Condition: Fair
Discharge Problem:
Left-sided cerebrovascular accident (CVA)
Interventions
Interventions:
*Risk Screen - Suicide Last Done: 12/16/24 08:50
*General Assessment Last Done: 12/16/24 08:50
*Neglect/Abuse Screening Last Done: 12/16/24 08:50
ED- Neurological Assessment Last Done: 12/16/24 11:30
[2024-12-16 10:03] LABS: Hematocrit 46.3 % (37.0-47.0); Hemoglobin 15.3 g/dL (12.0-16.0); Mean Corp Hgb Conc. 33.0 g/dL (33.0-37.0); Mean Corpuscular Volume 91.0 fL (81.0-99.0); Nucleated Red Blood Cells % 0 %; Platelet Count 285 10^3/uL (130-400); Red Cell Dist. Width 13.7 % (11.5-14.5)
[2024-12-16 10:14] LABS: INR 0.89; PT 12.3 Sec (11.4-14.6)
[2024-12-16 10:15] LABS: APTT 29.8 Sec (23.4-35.0)
[2024-12-16 10:27] LABS: ALT (SGPT) 25 U/L (0-35); AST (SGOT) 34 U/L (14-36); Albumin 4.8 g/dl (3.5-5.0); Alkaline Phosphatase 132 U/L (38-126); Blood Urea Nitrogen 16 mg/dl (7-17); Calcium 9.4 mg/dl (8.4-10.2); Carbon Dioxide 26 mmol/L (22-30); Chloride 106 mmol/L (98-107); Estimated Creatinine Clearance 55 ml/min; Glucose 104 mg/dl (70-99); Potassium 4.4 mmol/L (3.5-5.1); Sodium 142 mmol/L (135-145); Total Protein 8.0 g/dl (6.3-8.2); eGFR > 60.00
--- NOTE | 2024-12-16 11:05 | CON.NEURO4 ---
Addendum entered and electronically signed by Jv Adames MD 12/16/24 13:57:
Studies reviewed.
I have personally examined the patient. I reviewed and agree with the MANAGER DRUG's Note.
My addenda:
Awake, alert, interactive. No acute distress.
Speech intact.
Follows 2-step requests w/o difficulty. No tremor.
Extra-ocular movements grossly intact.
Facial movements full and symmetric. Hearing intact to normal conversational volume.
Normal UE movements bilaterally.
Neck: full ROM.
Chest: no dyspnea
Heart: no JVD
Ext: (-) Clubbing, (-) Cyanosis, (-) Edema
IMPRESSIONS/RECOMMENDATIONS:
Abrupt onset of right-sided weakness and right-sided homonymous hemianopsia
Most likely due to acute ischemic stroke especially suggested by CT perfusion
Provide tenecteplase urgently
Check MRI of brain 24 hours to determine if stroke has taken place
Rehabilitation evaluations and treatment
Goal of permissive hypertension then normotension after 24 hours
Follow cholesterol levels, continue rosuvastatin, potentially need to add additional medication to Evolocumab if LDL remains above 70
Total Critical Care Time= 60 minutes.
The neurological system is affected and the action required by me to prevent further deterioration or potential was control over the item listed first in the Impressions and Recommendations section of this note.
I was present and personally examined the patient. I discussed patient care with other professional health care providers.
Also discussed with family.
D/W patient / family / nursing
All questions answered.
Will continue to follow patient.
Original Note:
Documented by User: Waleska Carmona NP 12/16/24 13:18
Consultation - Neurology 4
-
CONSULTING PHYSICIAN: Jv Adames MD
REFERRING PHYSICIAN: ER/Dr. Lyons
DICTATED BY: LAWRENCE Reynaga
DATE/TIME OF REQUEST: 12/16/24
DATE/TIME OF CONSULTATION: 12/16/24
Reason for Consultation: Right-sided weakness
History of Present Illness:
This is a 79-year-old female who has presented to the hospital on 12/16/24 with report of headache and right-sided weakness and paresthesias. Patient is followed by our outpatient Neurology service for a TIA in 2019 and headaches.
From previous outpatient evaluation by Neurology LAWRENCE Wilkinson on 10/04/24:
'
From previous evaluations with Dr. Slaughter and Althea Degroot:
Pt presents to the office today (11/23/2019) for hospital f/u
'77 year old F who has presented to the hospital with syncope x 2. Pt had woken up with dizziness and feeling unsteady, but continued to go about her day. She presented to the ER via EMS after she passed out. According to records she had syncope x2.
She does report hitting her head. In the ER she was confused, had difficulty following directions, left sided weakness and difficulty with speech. Head CT demonstrated no acute intracranial abnormality. CTP of the brain was performed which
demonstrated no evidence of penumbra/NL. CTA of head and neck demonstrated no significant large vessel occlusion but demonstrated 50-60% bilateral carotid stenosis. Pt was admitted for complete stroke work up.'
MRI brain-no acute intracranial abnormality, mild to moderate white matter leukoaraiosis in both frontal and parietal lobes, mild diffuse cerebral and cerebellar atrophy.
LDL-114
QmvO2x-5.0
Echo-No CSE/PFO noted
ASA Assay-446
Pt did have a linq placed by cardiology-small run of atrial tach was noted on monitor. No atrial fibrillation noted yet since placement.
Pt reports she is feeling improved, but still not quite herself. She still reports increased fatigue and mild left-hand weakness. She continues to have therapy. Pt reports they have been altering her cardiac medications. She has f/u again with
cardiology 12/07/2019. Pt was discharged with a dx of TIA.
Carotid ultrasound completed 01/2020 that showed moderate partially calcific atherosclerotic plaque at both carotid bifurcations associated with less than 50% stenosis bilaterally.
She also had an EEG 2019 completed which did not show any seizure activity.
Interval history:
Since last visit, She is on ASA 81 mg daily which was shown to be efficacious. She is also on Atorvastatin 40 mg However LDL is still abnormal high at 123. ICA US in 06/2021 showed plaque but no significant stenosis. She reports no adverse effects
from medications. She has numbness or weakness recently.'
11/29/21: She has had no further episodes of TIA or syncope. Her balance continues to be off. She continues to follow with cardiology when she saw earlier this month. She is on Lipitor 80 mg. Her Linq has been normal.
09/18/22: She was recently admitted at with E coli bacteremia due to UTI. No falls but balance is off. She recently injured her R knee and thinks she will have to go back to PT for this. Has not done balance PT. No new stroke symptoms. Never had
herbloodwork done and never saw vascular surgery.
(10/16/2022)
Pt seen in the office today. She is doing well. Sh continues on ASA and atorvastatin. She did get lab work completedbut it was at her PCP, and we do not have results for review. She has not had any new stroke symptoms. She does have planned follow
up with vascular surgery.
Today (06/08/2024)
Today pt seen in the office for hospital follow up with her sister.
From consultation
'This is a 78-year-old female with past medical history significant for asthma, hypertension, hyperlipidemia and osteoporosis who presents to the emergency department with new onset thunderclap headache. She denies prior history of headache.
headache began suddenly 2 days ago, feels like brain freeze across her forehead. throbbing, with photophobia, phonophobia, nausea.
No neck pain, weakness, numbness, speech changes. In the ED she received toradol, reglan, benadryl and headache resolved. '
CT head 02/13/[address] evidence for acute intracranial hemorrhage or obstructive hydrocephalus.
2. SEVERE WHITE MATTER LEUKOARAIOSIS in the frontal lobes, parietal lobes, and anterior limbs of the internal capsules.
3. Mild diffuse cerebral and cerebellar volume loss.
NECK CTA 02/13/2024
1. Severe calcific atherosclerotic plaque in the left carotid bifurcation causing (1) 50-70% diameter stenosis in the proximal left ICA and (2) greater than 70% diameter stenosis in the proximal left ECA.
2. Moderate calcific atherosclerotic plaque in the proximal right ICA causing less than 50% diameter stenosis.
3. 50-70% diameter stenosis in the proximal right subclavian artery.
4. 50% diameter stenosis in the proximal left vertebral artery.
5. 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 Severe multilevel bilateral
neural foraminal narrowing.
HEAD CTA 02/13/2024:
1. 70% diameter stenosis in the P1 segment of the left posterior cerebral artery.
2. 70% diameter stenosis in the P2 segment of the right posterior cerebral artery.
3. 50% diameter stenosis in the proximal right intracranial vertebral artery.
4. Severe calcific atherosclerotic plaque in the clinoid segments of both intracranial internal carotid arteries.
5. Severe white matter leukoaraiosis in the frontal lobes.
MRI Brain
No acute intracranial abnormality noted.
There is mild global atrophy with sequelae of moderate small vessel ischemic disease.
There is degenerative changes of the visualized upper cervical spine with high-grade stenosis of the C2-C3 level.
Reports today that she has not had any Additional headaches since her hospitalization. She Feels this was an isolated migraine.She continues to follow-up with vascular surgery for known stenosis. She continues to follow-up with vascular surgery for
known carotid stenosis. She has follow-up MRI planned for cervical stenosis noted on CTA head and neck and MRI brain.
Today (10/04/2024)
Pt seen in the office today. Since her last visit she has been Well. No neurologic symptoms suggestive of stroke. She continues to follow-up with vascular surgery and cardiology. She continues on Repatha, Crestor and Zetia for lipid control. She
reports headaches have been well controlled. Her gait has improved though since her last appointment she did fracture her foot but has recovered well.� � She did have repeat cervical imaging and will be following up with pain management.
'
Patient's family at bedside reports that two days ago on 12/14/24 she had some mildly confused conversation that they noticed again yesterday. She reports that yesterday afternoon she developed a left-sided headache associated with some left eye
pain and blurring that she attributed to her usual migraine. She went to bed around 2130 in her usual state aside from her headache. She reports using the bathroom around 0200 and feeling mildly 'shaky' at that time but otherwise at her baseline.
She woke up at 0815 this morning and reports that her headache persisted and she 'just didn't feel right.' She was able to independently get into her son in law's truck at 0900 but upon arrival at the ER around 0915 she noted that her left arm and
leg felt numb and were weak, requiring assistance to get out of the truck and into a wheelchair. CT head was obtained and is suggestive of hypoattenuation in the left parietal-occipital lobe. On Neurology evaluation NIHSS was noted to be 9,
including a right homonymous hemianopsia. Given somewhat unclear picture of if her confused is related to current progressively developing stroke symptoms, CTA head/neck and CT brain perfusion were obtained. CTA head/neck is CT brain perfusion
demonstrates a 15ml ischemic penumbra in the left parietal-occipital lobe with no core infarct. Patient reports that her headache has currently resolved. Conversation is still mildly confused and her right side paresthesias and weakness persist and
she notes 'wavy vision.' She denies any dizziness. She is taking aspirin 81mg daily. She had a ILR for several years following her 2019 TIA that was unremarkable, and ultimately was removed in 2023. She lives in an in-law suite attached to her
daughter's house. At baseline, she is completely independent and still drives.
Past Medical History: TIA with left-sided weakness and confusion 2019, syncope, HTN, HLD, asthma, osteoporosis, right subclavian artery stenosis, L ICA 50-70% stenosis, posterior intracranial stenosis.
Surgical History: ILR s/p removal, bladder sling/stimulator, b/l TKR.
Family History: Mother- stroke.
Social History: Denies tobacco, alcohol, and illicit drug use.
Allergies: Boniva.
Home Medications: See below.
Review of Symptoms:
Patient denies any fever, headache, chest pain, shortness of breath, GI or symptoms.
�Per the HPI.�All systems are reviewed negative except above.
Physical Exam:
The patient is afebrile, abdomen is nondistended, breathing is unlabored, skin is warm and dry, no edema.
NIH Stroke Scale:
I performed the NIH stroke scale on the patient on 12/16/24 at 1115. The patient scored 9 points on the NIH stroke scale assessment, which were assigned as follows: See below.
Neurologic Examination:
The patient is awake, alert and oriented to person, year, and place. She is able to follow commands and answer questions appropriately. There is mild aphasia. dysarthria. On cranial nerve assessment, pupils are 3 mm bilateral, round and reactive to
light and accommodation. There is a right homonymous hemianopsia. Extraocular movements are intact. Facial sensations are intact and bilaterally symmetrical, there is no facial asymmetry. Hearing is intact bilaterally to normal conversation volume.
Tongue palate and uvula are midline. Sternocleidomastoid strengths are full bilaterally. Motor strengths are 4/5 right upper and lower and 5/5 left upper and lower extremities on medical research [place] scale. There is drift in the right arm and
right leg. No involuntary movement noted. Deep tendon reflexes are 2+ bilateral upper and lower extremities and Babinski is absent bilaterally. Sensation of touch is mildly reduced on the right side. There is sensory extinction noted on double
simultaneous stimulation in the right leg. Coordination is ataxic by finger to nose in the RUE.
Lab Results: See below.
Neuro Imaging:
1. CT Head 12/16/24: Moderate-sized area of hypoattenuation within the posterior left parietal and occipital lobes suspicious for subacute infarct.
2. CTA head/neck 12/16/24: Occlusion of the proximal left posterior cerebral artery. Severe stenosis at the proximal right cerebral artery. Patent basilar artery. Proximal segments of both middle cerebral arteries are patent. Mild to moderate
calcified plaque within the left carotid bulb.
3. CT brain perfusion 12/16/24: CBF 0ml, Tmax 15ml.
Differentials for the patient's presentation include:
1. Acute left occipital-parietal ischemic stroke in the setting of L BRISKET PULLER occlusion likely producing symptoms.
2. Migraine with aura possibly contributing to symptoms yesterday.
Patient has the following risk factors for their symptoms: HTN, HLD, TIA, migraines, intracranial stenosis, age
IV Tenecteplase/IAT candidacy: She is a candidate for TNK based on ct brain perfusion imaging analysis, not a candidate for IAT due to occlusion being in the posterior circulation.
Recommendations:
� administer IV Tenecteplase (TNK) per protocol urgently while keeping patient's blood pressure to a goal of systolic less than 185 and diastolic less than 110 mmHg during infusion of TNK
� place the patient in medical ICU
� goal blood pressure over the next 24 hours would be less than 180/105 mmHg
� check MRI of the brain within 22-32 hours of TNK without contrast for localization of the stroke
� hold all antiplatelets, OAC meds, DOAC meds, heparinoids for next 24 hours
� check lipid panel and hemoglobin A1c
� start atorvastatin 80 mg at bedtime when patient is able to take PO
� goal blood glucose levels for patient would be less than 180 mg/dL
� Speech, PT, OT evaluations needed
� Physiatry consultation warranted
� DVT prophylaxis with sequential compression devices over next 24 hours, can be started on Enoxaparin subcutaneous for DVT prophylaxis beginning 24 hours after TNK provision.
� medical educational materials will be provided
We will follow.
Discussed patient care with: Dr. Adames, the patient, patient's family
Vital Signs and Labs
-
Vital Signs and Labs:
Vital Signs
Temp Pulse Resp BP Pulse Ox
98.4 F 92 14 190/79 95
12/16/24 08:50 12/16/24 11:04 12/16/24 10:15 12/16/24 08:50 12/16/24 10:00
Lab Results
12/16/24 09:53
12/16/24 09:53
PT 12.3 Sec (11.4-14.6) 12/16/24 09:53
INR 0.89 12/16/24 09:53
APTT 29.8 Sec (23.4-35.0) 12/16/24 09:53
Sodium 142 mmol/L (135-145) 12/16/24 09:53
Potassium 4.4 mmol/L (3.5-5.1) 12/16/24 09:53
BUN 16 mg/dl (7-17) 12/16/24 09:53
Glucose 104 mg/dl (70-99) H 12/16/24 09:53
Calcium 9.4 mg/dl (8.4-10.2) 12/16/24 09:53
Medications
-
Home Medications
�Medication �Instructions �Recorded
cholecalciferol (vitamin D3) 50 4,000 units PO DAILY Supplement 10/19/19
mcg (2,000 unit) tablet
dicyclomine 20 mg tablet 20 mg PO BID Gastrointestinal Issue 10/19/19
esomeprazole magnesium 20 mg 40 mg PO DAILY Gastrointestinal 10/19/19
capsule,delayed release (Nexium) issue
sertraline 100 mg tablet 100 mg PO DAILY Depression 10/19/19
albuterol sulfate 90 mcg/actuation 2 puff inhalation R Q4HPRN PRN 09/15/22
aerosol inhaler shortness of breath
amlodipine 10 mg tablet 10 mg PO DAILY Blood Pressure 09/15/22
aspirin 81 mg tablet,delayed 81 mg PO DAILY Blood Clot 09/15/22
release Prevention/Tx
calcium 600 mg (as carbonate)-vit 1 tab PO DAILY Supplement 09/15/22
D3 20 mcg (800 unit) chewable
tablet (Caltrate plus D)
metoprolol succinate 50 mg 50 mg PO DAILY Blood Pressure 09/15/22
tablet,extended release 24 hr
mirabegron 50 mg tablet,extended 50 mg PO DAILY Urinary Issue 09/15/22
release 24 hr (Myrbetriq)
ezetimibe 10 mg tablet 10 mg PO DAILY High Cholesterol 02/13/23
meloxicam 15 mg tablet 15 mg PO DAILYPRN PRN moderate pain 02/13/23
rosuvastatin 40 mg tablet 40 mg PO HS High Cholesterol 02/13/23
acetaminophen 500 mg tablet 1,000 mg PO BIDPRN PRN mild pain 02/13/24
famotidine 40 mg tablet 40 mg PO DAILY Gastrointestinal 02/13/24
Issue
fluticasone furoate 200 1 inh inhalation R DAILY 02/13/24
mcg-vilanterol 25 mcg/dose Lung/Breathing Issues
inhalation powder (Breo Ellipta)
ondansetron 4 mg disintegrating 4 mg PO Q8H PRN nausea/vomiting 02/14/24
tablet #10 tabs
NIH Stroke Score
Subsequent NIH Scale
Date of Subsequent NIH Scale: 12/16/24
Time of Subsequent NIH Scale: 11:15
NIH Stroke Score
Level of Consciousness: 0 - Alert
LOC Questions: 1-Answers one correctly
LOC Commands: 0-Performs both correctly
Best Horizontal Gaze: 0-Normal
Visual Díaz: 2=Full hemianopia
Facial Palsy: 0=Normal, symmetrical
Motor - Right Arm: 1=Drift < 10 seconds
Motor - Left Arm: 0=No drift 10 seconds
Motor - Right Le-Drift < 5 seconds
Motor - Left Le-No drift 5 seconds
Limb Ataxia: 1-Present in one limb
Sensation: 1-Mild loss
Best Language: 1-Mild aphasia
Dysarthria: 0-Normal
Extinction and Inattention: 1-Sensory inattention
NIH Total Score:: 9
Modified [place] (mRS) Score
Modified [place] Scale (mRS): Moderately severe disability. Unable to attend to bodily needs/walk.
Score: 4
Alteplase Contraindication
Inclusion and Exclusion criteria reviewed: Yes

Documented by User: Jv Adames MD 12/16/24 13:51
NIH Stroke Score
NIH Stroke Score
NIH Total Score:: 9
Modified [place] (mRS) Score
Score: 4
[2024-12-16] MEDS: TNKASE 3.4 MG IV (12:00)
--- NOTE | 2024-12-16 12:08 | HPS.HSE ---
Family Physician
-
Family Physician: Sam Wheeler
Chief Complaint
-
r side weakness
History of Present Illness
Patient is 79 years female with past medical history of hypertension, hyperlipidemia, asthma, TIAs, PVD, came into the hospital with headache and right-sided weakness. Patient and family describe that she has been having intermittent symptoms over
the last 3 days but today LKN at 9 AM and came into the hospital sudden onset of right-sided weakness and paresthesias and dysarthria. Patient was a stroke alert in the ED. Neurology evaluated the patient and decided that she qualified for TNK.
Patient denies chest pain or shortness of breath. Patient does have headache and she rates it about a 6 out of 10 bifrontal with constant intensity. Patient denies any fevers or chills recently. Stroke workup including CT of the head with
hypoattenuation within the posterior left parietal occipital lobe with suspicion for subacute infarct and subsequently had a CT perfusion scan and a CTA of the head and neck. She has evidence of occlusion of the proximal left posterior cerebral
artery and severe stenosis of the proximal right cerebral artery. She was referred to the hospitalist service for further evaluation.
Medical History
Past Medical History
Past Medical History: Reports Other (Hypertension, hyperlipidemia, asthma, TIAs, PVD, obesity.)
Past Surgical History: Reports Other (ILR status post removal, bilateral TKR, bladder sling.)
Social History
Tobacco: Non-smoker
Alcohol: None
Drug: None
Family History
Family History: Other (Mother has history of stroke)
Allergies / Home Medications
Allergies reflects when Allergies were last updated in [facility].
Home Medications with original date entered in [facility]
Allergy/Medication List:
Allergies
Allergy/AdvReac Type Severity Reaction Status Date / Time
ibandronate sodium (From Allergy Nausea / Verified 12/16/24 08:50
Boniva) Vomiting
Home Medications
dicyclomine 20 mg tablet 20 mg PO DAILY Gastrointestinal Issue 10/19/19
esomeprazole magnesium 20 mg capsule,delayed release (Nexium) 40 mg PO DAILYPRN PRN ged 10/19/19
sertraline 100 mg tablet 100 mg PO DAILY Depression 10/19/19
albuterol sulfate 90 mcg/actuation aerosol inhaler 2 puff inhalation R Q4HPRN PRN shortness of breath 09/15/22
amlodipine 10 mg tablet 10 mg PO DAILY Blood Pressure 09/15/22
aspirin 81 mg tablet,delayed release 81 mg PO DAILY Blood Clot Prevention/Tx 09/15/22
metoprolol succinate 50 mg tablet,extended release 24 hr 50 mg PO DAILY Blood Pressure 09/15/22
mirabegron 50 mg tablet,extended release 24 hr (Myrbetriq) 50 mg PO DAILY Urinary Issue 09/15/22
ezetimibe 10 mg tablet 10 mg PO DAILY High Cholesterol 02/13/23
rosuvastatin 40 mg tablet 40 mg PO HS High Cholesterol 02/13/23
fluticasone furoate 200 mcg-vilanterol 25 mcg/dose inhalation powder (Breo Ellipta) 1 inh inhalation R DAILY Lung/Breathing Issues 02/13/24
calcium carbonate 500 mg PO DAILY Supplement 12/16/24
cholecalciferol (vitamin D3) 10 mcg (400 unit) tablet (Vitamin D3) 10 mcg PO DAILY Supplement 12/16/24
evolocumab 140 mg/mL subcutaneous pen injector (Repatha SureClick) 140 mg SC Q2W High Cholesterol 12/16/24
Review of Systems
-
A 12 point ROS was completed and negative except as noted: Yes
Physical Exam
Vital Signs
Vital Signs
Temp Pulse Resp BP Pulse Ox
98.4 F 98 12 169/63 97
12/16/24 08:50 12/16/24 12:04 12/16/24 12:04 12/16/24 12:04 12/16/24 12:03
Physical exam:
General: Acutely ill
HEENT: Normocephalic, Atraumatic and Moist Mucous Membranes
Respiratory: Clear to Auscultation; Negative Wheezes, Rales or Rhonchi
Cardiac: Regular Rhythm and S1/S2
GI: Soft, Nontender and Nondistended
Musculoskeletal: No Clubbing, No Cyanosis and No Edema
Neuro: Awake, Alert and Oriented, right-sided weakness, dysarthria
Psych: Anxious
Physical Exam
General: Other
Laboratory Results
-
12/16/24 09:53
12/16/24 09:53
Laboratory Results
PT 12.3 Sec (11.4-14.6) 12/16/24 09:53
INR 0.89 12/16/24:53
APTT 29.8 Sec (23.4-35.0) 12/16/24 09:53
Total Bilirubin 0.5 mg/dl (0.2-1.3) 12/16/24 09:53
AST 34 U/L (14-36) 12/16/24 09:53
ALT 25 U/L (0-35) 12/16/24 09:53
Alkaline Phosphatase 132 U/L (38-126) H 12/16/24 09:53
Impression/Plan
-
IMPRESSION:
Patient is 79 years old female with multiple comorbidities came into the hospital with acute onset of neurological deficit consistent with acute stroke. Patient at increased risk of morbidity and mortality therefore she will need to be treated in
the hospital and monitor accordingly.
PLAN:
Acute stroke:
Status post TNK
No antiplatelets or anticoagulation for 24 hours
ICU admission
Discussed with spinner hand, neurologist, and potato picker.
Discussed with family at bedside and explained plan of care and risks associated with this critical ill patient
Will give further recommendations based on clinical course
Headache:
Headache preceded stroke and thrombolytics but there was some concern of worsening so CT scan of the head was done post thrombolytics. CT shows no acute hemorrhage.
Pain control continue to monitor
Hypertension:
Allow permissive hypertension
Antihypertensive medications with sodium parameters
Hyperlipidemia:
Will start statins when able to take oral
DVT prophylaxis:
SCDs
CODE STATUS:
Full code
Total Critical Care Time___45__ minutes. I was immediately available to the patient and staff. I personally examined, reviewed labs, diagnostic images/reports, interpretations, treatment plans, discussed patient care with other providers and
family or caregivers (if patient is unable to make decisions), entered orders as appropriate and documented the medical record.
[2024-12-16 12:34] LABS: Glucose - Point of Care 94 mg/dl (70-99)
[2024-12-16] MEDS: COMPAZINE 10 MG IV ×2 (12:42→21:56)
--- NOTE | 2024-12-16 13:48 | CON.INTV ---
Consultation
Consultation Request
Date/Time Consultation Requested: 12/16/2024-2 PM
Date/Time Consultation Performed: 12/16/2024-2 PM
Requesting Provider: Hospitalist
Performing Provider: Dr. Goss
Reason for Consultation: CVA
Medical History
-
Chief Complaint: Right eye visual/right upper and lower extremity weakness
History of Present Illness:
79-year-old former smoking female with a history of hypertension, hyperlipidemia, asthma, osteoporosis, TIA 2019, bladder sling presents with abrupt onset right-sided weakness and right side hemianopsia felt to have acute ischemic stroke and
received TNK-rubber ball finisher consulted for post TNK/critical care management 12/16/2024. The patient is seen in the medical intensive care unit. She feels much improved. Her visual abnormalities are slowly improving. Her right upper and lower
extremities weakness also has improved. She had been complaining of a headache but this is also improved. She currently denies any shortness of breath, chest pain, chest tightness, weakness, abdominal pain, nausea, focal weakness or lower
extremity swelling.
Past Medical History
Past Medical History: None (Hypertension. Hyperlipidemia. Asthma. Osteoporosis. TIA 2019. Bladder sling.)
Social History
Tobacco: Former Smoker (Quit 30 years ago)
Alcohol: None
Drug: None
Living: With Family
Occupational Exposures: No known asbestos exposure
Environmental Exposures: No known tuberculosis exposure
Family History
Family History: Reviewed & Not Pertinent
Allergies / Home Medications
Allergies
Allergy/AdvReac Type Severity Reaction Status Date / Time
ibandronate sodium (From Allergy Nausea / Verified 12/16/24 08:50
Boniva) Vomiting
Home Medications
�Medication �Instructions �Recorded �Confirmed �Last Taken �Type
dicyclomine 20 mg tablet 20 mg PO DAILY Gastrointestinal 10/19/19 12/16/24 02/13/24 History
Issue
esomeprazole magnesium 20 mg 40 mg PO DAILYPRN PRN ged 09/10/2912/16/24 02/13/24 History
capsule,delayed release (Nexium)
sertraline 100 mg tablet 100 mg PO DAILY Depression 10/19/19 12/16/24 02/13/24 History
albuterol sulfate 90 mcg/actuation 2 puff inhalation R Q4HPRN PRN 09/15/22 12/16/24 3 Months Ago History
aerosol inhaler shortness of breath ~09/29/23
amlodipine 10 mg tablet 10 mg PO DAILY Blood Pressure 09/15/22 12/16/24 02/13/24 History
aspirin 81 mg tablet,delayed 81 mg PO DAILY Blood Clot 09/15/22 12/16/24 02/13/24 History
release Prevention/Tx
metoprolol succinate 50 mg 50 mg PO DAILY Blood Pressure 09/15/22 12/16/24 02/13/24 History
tablet,extended release 24 hr
mirabegron 50 mg tablet,extended 50 mg PO DAILY Urinary Issue 09/15/22 12/16/24 02/13/24 History
release 24 hr (Myrbetriq)
ezetimibe 10 mg tablet 10 mg PO DAILY High Cholesterol 02/13/23 12/16/24 02/13/24 History
rosuvastatin 40 mg tablet 40 mg PO HS High Cholesterol 02/13/23 12/16/24 02/12/24 History
fluticasone furoate 200 1 inh inhalation R DAILY 02/13/24 12/16/24 Unknown History
mcg-vilanterol 25 mcg/dose Lung/Breathing Issues
inhalation powder (Breo Ellipta)
calcium carbonate 500 mg PO DAILY Supplement 12/16/24 12/16/24 Unknown History
cholecalciferol (vitamin D3) 10 10 mcg PO DAILY Supplement 12/16/24 12/16/24 Unknown History
mcg (400 unit) tablet (Vitamin D3)
evolocumab 140 mg/mL subcutaneous 140 mg SC Q2W High Cholesterol 12/16/24 12/16/24 Unknown History
pen injector (Darwin Coffman)
Review of Systems
-
Unable to Obtain full review of systems at this time due to: Other ( per HPI)
Vitals / Labs / Diagnostic Testing
Vital Signs
Temp Pulse Resp BP Pulse Ox
98.4 F 98 20 175/63 95
12/16/24 08:50 12/16/24 13:09 12/16/24 13:00 12/16/24 13:09 12/16/24 13:00
Lab Data
12/16/24 09:53
12/16/24 09:53
Laboratory Results
12/16/24
09:53
PT 12.3
INR 0.89
APTT 29.8
Diagnostic Testing:
Physical Exam
-
Exam:
well-nourished and well-developed in no apparent distress
HEENT-atraumatic, normocephalic
Neck-supple, no JVD, no bruit
Heart-regular rate and rhythm-no murmurs, rubs or gallops
Chest-clear to auscultation, no wheezes, crackles
Back-no tenderness
Abdomen-soft, nontender, nondistended, no hepatosplenomegaly
Extremities-no cyanosis, clubbing, edema and good peripheral pulses
Integument-intact, no rashes, lesions or ecchymosis
Neurology-alert and oriented, nonfocal motor and sensory exam
Assessment
-
79-year-old former smoking female with a history of hypertension, hyperlipidemia, asthma, osteoporosis, TIA 2019, bladder sling presents with abrupt onset right-sided weakness and right side hemianopsia felt to have acute ischemic stroke and
received TNK-rubber ball finisher consulted for post TNK/critical care management 12/16/2024.
Acute ischemic CVA with right-sided weakness and right-sided homonymous hemianopsia
Status post TNK
Conditions present prior to admission:
Hypertension.
Hyperlipidemia.
Asthma.
Osteoporosis.
TIA 2019.
Bladder sling.
Plan
Admit patient to medical intensive care unit
Supplemental oxygen to maintain saturation greater than 92%
Aspiration precautions
Neurology evaluation
Monitor blood pressure closely-goal SBP < 180, DBP < 105-allow for permissive hypertension in the first 24 hours
Neuro checks per protocol
Check CT head
MRI head/MRA head and neck in next 24 hours
Status post tenecteplase infusion
Hold antiplatelet therapy �24 hours
Check lipid panel-goal LDL less than 70
Check echocardiogram
Check A1c
Carotid circulation evaluation
Atorvostatin 80 mg daily if tolerated
Monitor blood sugar-insulin as needed-goal blood sugar 140-180
DVT prophylaxis-sequential for 24 hours and then Lovenox
Speech therapy/occupational therapy/physical therapy evaluation
Stroke education packet
No driving-patient needs outpatient visual field testing/clearance by ophthalmology for driving clearance
She reportedly sees a yarn man in the outpatient for her asthma-on Breo/albuterol-last seen 1 year ago-I checked our records-she does not follow with [facility]
Critical care statement: A total of 55 minutes of critical care time was provided for this patient today. This includes management of unstable vital signs, evaluation of the patient at bedside, reviewing the patient's pertinent medical records
including radiographs, microbiology, laboratory evaluations, and discussion with primary team, consultants, pharmacy, nutrition, physical therapy, case management, charge nurse, critical care nursing, and respiratory therapy.
Diagnostic data:
CT head 12/16/2024-moderate size area of hypoattenuation within posterior left parietal and occipital lobe suspicious for subacute infarct
CT head and neck angiogram 12/16/2024-occlusion of proximal left posterior cerebral artery, severe stenosis of the proximal right cerebral artery and patent basilar artery, proximal segments of both middle cerebral arteries are patent, mild to
moderate calcified plaques in the left carotid bulb
CT head 12/16/2024 after complaining of headache post TNK-no evidence for hemorrhagic transformation of left parietal/occipital infarct
Echocardiogram 09/06/2020-EF 55-60%, PA systolic 42, normal diastolic function
Data Reviewed
-
EKG: Report reviewed by me
Radiology: Report reviewed by me
CT Scan: Report reviewed by me
Medical Tests (Nuc Med, Echo etc): Report reviewed by me
Labs: Labs reviewed by me
Old Records: Reviewed
Critical Care Time (in minutes): 55
--- NOTE | 2024-12-16 14:13 | PTCARENOTE ---
Received patient from ED. NIHSS completed during handoff. patient is AAOx4. IS sinus tach on monitor. Patient is on room air 94%. Will do bed side swallow eval patient has purewick in place CHG bath completed. Will review orders.
[2024-12-16 14:15] LABS: Glucose - Point of Care 93 mg/dl (70-99)
--- NOTE | 2024-12-16 14:40 | PTCARENOTE ---
Patient passed swallow eval. drank some water. a few minutes later, patient became tachycardic, asked for a basin and vomited into it. Notified Waleska Carmona. no need for repeat CT scan at this time, patient may have persistent nausea and
vomiting due to location of stroke and patient may have orals as tolerated.
[2024-12-16] MEDS: ZOFRAN 4 MG IV ×2 (15:05→19:16)
--- NOTE | 2024-12-16 15:05 | CM ---
Addendum entered by Hilda Fraire 12/16/24 15:12:
Of note, dtr is home with sick young child
Requesting updates as she will be not able to complete visits
Original Note:
CM attempted bedside visit, introduced self
Pt receiving care
Call to dtr/KLAUS E[place]
Pt resides in a in-law suite attached to dtr/Jhoana and LEMUEL/Jason's home
0STE and all on one floor
Pt is independent with her ADLs, no ADs, drives+
Has a WW for use as needed
Dtr denies financial insecurities but did not pt has stopped Prolia injections due to costs
Pt has hx with [facility] and [facility]
PCP- Sam Wheeler
Rx- Marilyn Mercado
PT/OT/ST evals pendong
PMR consult placed and pending
Per dtr, pt has three other dtrs locally
Pt along with her dtr/LEMUEL had plans to go to [employer] this coming week
Discharge Disposition- TBD pending outcome of therapy evals and PMR
--- NOTE | 2024-12-16 16:00 | PTCARENOTE ---
Reached out to Dr. Adames as patient is continuing to have nausea and vomiting. She is more tired but states her headache feels better, 4:10. She is oriented, neurologically appropriate, pupils equal. She is tachycardic in 120s, 130s, obtained
EKG. complaining of indigestion, does take zantac at home. gave zofran. Asked if patient should have repeat CT scan. Per Dr. Adames if patient becomes unresponsive or has pupillary asymmetry will need to get another CT scan, but repeat CT scan
atg 1330 was unchanged. Will continue to assess neurologic status.
[2024-12-16] MEDS: TRANDATE 10 MG IV (16:47)
[2024-12-16] MEDS: D5/0.45%NACL 1000 IV (16:58)
--- NOTE | 2024-12-16 17:02 | PTCARENOTE ---
Patient vomited again, BPx2 was above 180 systollic. Gave prn labetalol as ordered. Placed patient on 3L nasal cannula. Per family, patient does snore but has never been evaluated for sleep apnea.
--- NOTE | 2024-12-16 20:30 | PTCARENOTE ---
Assumed care of patient. NIHSS performed at bedside with off going nurse. NIHSS score of 8 - see worklist. Patient AAOx3, mildly confused @ times/forgetful and drowsy. Patient w/ headache - reports improving. SR on the monitor. Patient on 3L POX 96%
- lungs diminished at the bases. Patient w/ stress incontinence - purewick in place. Patient's abd soft/round - complaining of nausea - DOCUMENT SCANNER notified - one time dose of Zofran ordered and administered - see APR. Patient w/ D5/0.45NS running at
80mls/hr through LAC.
[2024-12-16] MEDS: TRANDATE 5 MG IV (21:30)
--- NOTE | 2024-12-16 23:11 | PTCARENOTE ---
Patient's SBP elevated >180 for multiple readings - at that time patient complained of MOORE 2-3/10, improved from prior assessment. Patient w/ no complaints of nausea at that time. JOURNEYMAN WELDER notified of elevated BPs - one time dose of 5mg IV labetalol
ordered. No changes in neuro assessment. Upon entering patient's room to administer labetalol, patient complaining of nausea and vomited small amount of green/brown emesis. Labetalol administered - see MAR. Patient then vomited 250mls of brown/green
emesis into basin. JOURNEYMAN WELDER notified and one time dose of Compazine ordered and administered - see MAR. JOURNEYMAN WELDER reached out to Neurology wheelchair van operator first responder and CT of head ordered and obtained.
[2024-12-17] VITALS (67 sets, daily range): BP systolic 125–206; BP diastolic 49–97; BMI 29.0
[2024-12-17] MEDS: ZOFRAN 4 MG IV ×3 (00:51→08:15)
[2024-12-17] MEDS: TRANDATE 10 MG IV (01:02)
[2024-12-17] MEDS: COMPAZINE 10 MG IV (03:14)
[2024-12-17 04:29] LABS: Hematocrit 39.8 % (37.0-47.0); Hemoglobin 13.4 g/dL (12.0-16.0); Mean Corp Hgb Conc. 33.7 g/dL (33.0-37.0); Mean Corpuscular Volume 91.3 fL (81.0-99.0); Platelet Count 269 10^3/uL (130-400); Red Cell Dist. Width 13.7 % (11.5-14.5)
[2024-12-17 04:48] LABS: APTT 28.3 Sec (23.4-35.0); INR 0.97; PT 13.2 Sec (11.4-14.6)
[2024-12-17 04:49] LABS: Blood Urea Nitrogen 14 mg/dl (7-17); Calcium 9.1 mg/dl (8.4-10.2); Carbon Dioxide 28 mmol/L (22-30); Chloride 103 mmol/L (98-107); Estimated Creatinine Clearance 63 ml/min; Glucose 162 mg/dl (70-99); HDL Cholesterol 59 mg/dl; LDL Cholesterol, Calculated 70 mg/dl; Potassium 3.8 mmol/L (3.5-5.1); Sodium 136 mmol/L (135-145); Very Low Density Lipoprotein 24 mg/dl (0-30); eGFR > 60.00
[2024-12-17] MEDS: TRANDATE 5 MG IV (05:17)
[2024-12-17] MEDS: D5/0.45%NACL 1000 IV (05:26)
[2024-12-17] MEDS: KCL 260 MEQ IV ×2 (05:27→23:43)
--- NOTE | 2024-12-17 05:49 | PTCARENOTE ---
Addendum entered by Bari Avila RN 12/17/24 06:23:
Patient's BP elevated after 1 time dose of Labetalol. WAREHOUSE LABORER notified. Cardene gtt ordered and started - see worklist.
Original Note:
Patient vomited approximately 30mls of brown/green emesis after one time order of Compazine for nausea - see MAR. Neuro status remains unchanged. WAREHOUSE LABORER notified - one time dose of IV Zofran ordered and administered - see MAR. Patient w/ SBP >180x3 -
SCROLL ASSEMBLER notified - one time order of IV labetalol ordered and administered w/ + effects - see MAR.
[2024-12-17] MEDS: TRANSDERM-SCOP 1 PATCH TRANSDERM (06:26)
--- NOTE | 2024-12-17 07:44 | W.PN.INTV ---
Today's Communication / Plan
Recommendations
Post TNK observation
Neuro vascular checks per protocol
Pantoprazole
Brain MRI pending
Transfer out of ICU if neurologic status stabilizes-shoe singer will sign off at that time
Assessment
-
79-year-old former smoking female with a history of hypertension, hyperlipidemia, asthma, osteoporosis, TIA 2019, bladder sling presents with abrupt onset right-sided weakness and right side hemianopsia felt to have acute ischemic stroke and
received TNK-shoe singer consulted for post TNK/critical care management 12/16/2024.
Acute ischemic CVA with right-sided weakness and right-sided homonymous hemianopsia
Status post TNK
Conditions present prior to admission:
Hypertension.
Hyperlipidemia.
Asthma.
Osteoporosis.
TIA 2019.
Bladder sling.
Plan
Admit patient to medical intensive care unit
Supplemental oxygen to maintain saturation greater than 92%
Aspiration precautions
Neurology evaluation ongoing
Monitor blood pressure closely-goal SBP < 180, DBP < 105-allow for permissive hypertension in the first 24 hours
Neuro checks per protocol
Repeat CT head 12/16/2024 compared to same-day CT at 10:[address] head 1:16 PM-no significant change in left posterior temporal occipital infarct, no acute hemorrhage
MRI head/MRA head pending
Status post tenecteplase infusion
Hold antiplatelet therapy �24 hours
Check lipid panel-goal LDL less than 70
Echocardiogram pending
Check A1c
Carotid circulation evaluation
Atorvostatin 80 mg daily if tolerated
Monitor blood sugar-insulin as needed-goal blood sugar 140-180
DVT prophylaxis-sequential for 24 hours and then Lovenox
Speech therapy/occupational therapy/physical therapy evaluation
Stroke education packet
No driving-patient needs outpatient visual field testing/clearance by ophthalmology for driving clearance
She reportedly sees a finance admin in the outpatient for her asthma-on Breo/albuterol-last seen 1 year ago-I checked our records-she does not follow with [facility]
Critical care statement: A total of 45 minutes of critical care time was provided for this patient today. This includes management of unstable vital signs, evaluation of the patient at bedside, reviewing the patient's pertinent medical records
including radiographs, microbiology, laboratory evaluations, and discussion with primary team, consultants, pharmacy, nutrition, physical therapy, case management, charge nurse, critical care nursing, and respiratory therapy.
Diagnostic data:
CT head 12/16/2024-moderate size area of hypoattenuation within posterior left parietal and occipital lobe suspicious for subacute infarct
CT head and neck angiogram 12/16/2024-occlusion of proximal left posterior cerebral artery, severe stenosis of the proximal right cerebral artery and patent basilar artery, proximal segments of both middle cerebral arteries are patent, mild to
moderate calcified plaques in the left carotid bulb
CT head 12/16/2024 after complaining of headache post TNK-no evidence for hemorrhagic transformation of left parietal/occipital infarct
Echocardiogram 09/06/2020-EF 55-60%, PA systolic 42, normal diastolic function
Subjective Dataa
Subjective Data
Date of Service:
Date of Service: December 17, 2024
Chief Complaint: Search Marketing Coordinator Follow Up and Pulmonary Follow Up
Subjective:
Complaining of some reflux, no headache, no focal weakness
Review of Systems
General: Other (Per HPI)
Objective Data
Data Reviewed
Vital Signs / I&O / Oxygen:
Vital Signs
Temp Pulse Resp BP Pulse Ox
98.1 F 107 24 161/65 96
12/17/24 07:18 12/17/24 06:54 12/17/24 06:54 12/17/24 06:54 12/17/24 06:15
Intake and Output
12/16/24 12/17/24 12/18/24
06:59 06:59 06:59
Intake Total 1420 / 1500 80 / 80
Output Total 780 / 780
Balance 640 / 720 80 / 80
SaO2 96
Nasal Cannula flow liters per 3
minute
Physical Exam
General: Respiratory Distress (n) and Comfortable
HEENT: Normocephalic, Anicteric and Moist Mucous Membranes
Cardiovascular: Regular Rhythm
Respiratory: Wheeze (n), Crackles (n), Rhonchi (n), Non-Labored Respirations, Accessory Resp Muscle Use (n) and Stridor
GI: Soft, Distended and Non Tender
Neurology: Awake, Alert and No Motor Deficits
Skin: Warm, Good Color (n), Cyanosis (n) and Jaundice (n)
Labs/Micro/Reports
Lab Data
12/17/24 04:12
12/17/24 04:12
Laboratory Results
12/16/24 12/17/24
09:53 04:12
PT 12.3 13.2
INR 0.89 0.97
APTT 29.8 28.3
--- NOTE | 2024-12-17 08:00 | PTCARENOTE ---
Received pt @ change of shift; [facility] completed w off-going RN- scored 6- see flow sheet. Pt. drowsy, awakens to verbal stim; ox3, forgetful; denies pain. SR/ST on monitor. Cardene gtt infusing and titrated to keep SBP <180- see flow sheet. SpO2 95%
on 2LNC. Auscultated dim breath sounds posteriorly. +BS, abd round; continuous nausea/vomiting; unable to keep down PO intake @ this time. Cont Bm. Stress inc/inc bladder- purewick in place; bladder stimulator device. #18 L AC patent, dressing
c/d/i. # 20 R hand inserted w IVF and Cardene gtt. # 20 R AC patent, dressing c/d/i. Bedrest maintained. Plan for Brain MRI today. Pt. instructed on how to report care concerns, call lindquist in reach, bed alarm active.
--- NOTE | 2024-12-17 09:38 | W.PN.HOSP.TC ---
Addendum entered and electronically signed by Pablo Dumas MD 12/17/24 16:30:
Discussed with neurology in person. He saw MRI and no bleeding. Okay to start antiplatelets and pharmacological DVT prophylaxis and statins. Also start antihypertensive to get blood pressure under control in the next 24 to 72 hours. Start
aspirin per rectum and once tolerated oral manage can switch to dual antiplatelet therapy for 3 weeks.
Original Note:
Today's Communication/Plan
-
See plan
Assessment / Plan
Assessment / Plan
Physical exam:
General: Acutely ill
HEENT: Normocephalic, Atraumatic and Moist Mucous Membranes
Respiratory: Clear to Auscultation; Negative Wheezes, Rales or Rhonchi
Cardiac: Regular Rhythm and S1/S2
GI: Soft, Nontender and Nondistended
Musculoskeletal: No Clubbing, No Cyanosis and No Edema
Neuro: Awake, Alert and Oriented, improving neurological deficits.
Psych: Answers
Acute stroke:
Status post TNK
No antiplatelets or anticoagulation for 24 hours. Antiplatelets 24 hours postthrombolytic.
Seen all brain images including CT of the head, CTA of the head and neck, CT perfusion brain. Pending MRI of the brain
Discussed with windshield installer, neurologist, and airline radio operator.
Discussed with family at bedside yesterday and explained plan of care and risks associated with this critical ill patient
Will give further recommendations based on clinical course
Discussed with RN at bedside
Persistent nausea:
Continue antiemetics
Gentle IV fluid hydration
Start Protonix
Headache:
Headache preceded stroke and thrombolytics but there was some concern of worsening so CT scan of the head was done post thrombolytics. CT shows no acute hemorrhage.
Pain control continue to monitor
Leukocytosis:
Likely reactive
Follow-up trend
Hypertension:
Allow permissive hypertension
Antihypertensive medications with sodium parameters
Hyperlipidemia:
Will start statins when able to take oral
DVT prophylaxis:
SCDs
CODE STATUS:
Full code
Total time spent on today's encounter was 52 minutes which included time spent in counseling the patient/family regarding diagnosis and treatment plan as listed above, goals of care, and symptom management. Case was discussed with nursing staff,
specialists, and care coordinators/case management. All labs and imaging personally reviewed by me. Remainder the time spent in detailed review of previous records, lab data, imaging, and other medical provider documentation.
Anticipated Discharge: > 48 hours
Subjective/Interval History
-
Date of Service: December 17, 2024
Patient with persistent nausea. Still has some mild headache but not any worse. Denies chest pain or shortness of breath.
Objective Data
-
Labs:
Laboratory Results
12/17/24
04:12
WBC 16.6 H
Hgb 13.4
Hct 39.8
Plt Count 269
PT 13.2
INR 0.97
APTT 28.3
Sodium 136
Potassium 3.8
Chloride 103
Carbon Dioxide 28
BUN 14
Creatinine 0.6
Glucose 162 H
Calcium 9.1
Vital Signs:
Vital Signs
Temp Pulse Resp BP Pulse Ox
98.1 F 107 24 161/65 96
12/17/24 07:18 12/17/24 06:54 12/17/24 06:54 12/17/24 06:54 12/17/24 06:15
I&O
12/16/24 12/17/24 12/18/24
06:59 06:59 06:59
Intake Total 1420 / 1500 80 / 80
Output Total 780 / 780
Balance 640 / 720 80 / 80
[2024-12-17] MEDS: PHENERGAN 50.25 MG IV (11:12)
[2024-12-17] MEDS: NSS (PRESERVATIVE FREE) 10 ML IV (11:12)
[2024-12-17] MEDS: PROTONIX IV 40 MG IV (11:12)
--- NOTE | 2024-12-17 14:00 | PTCARENOTE ---
Assisted pt. with changing bladder stimulator device to MRI mode- completed. Scopolamine patch also removed for scan. Pt. RN transported to MRI scan and back to rm [id number] w/out issue. Bladder stimulator device reactivated upon arrival to unit.
Tapering Cardene gtt- see flow sheet. Remains on IVF; ongoing nausea, int small episodes vomiting. Daughter @ bedside upon return from scan, updated. Pt.'s call ameena w in reach.
[2024-12-17] MEDS: TYLENOL 650 MG PO (14:56)
--- NOTE | 2024-12-17 15:00 | PTCARENOTE ---
Pt. reported 'pins and needles' pain in L leg; Dr. Dumas notified. Upon further assessment pt. reported ongoing restless leg issues and reports sensation is within baseline.
[2024-12-17] MEDS: ZETIA 10 MG PO (17:22)
[2024-12-17] MEDS: TOPROL XL 50 MG PO (17:22)
[2024-12-17] MEDS: NORVASC 10 MG PO (17:22)
[2024-12-17] MEDS: LOVENOX 40 MG SC (17:22)
[2024-12-17] MEDS: CARDENE 200 IV (17:23)
--- NOTE | 2024-12-17 18:03 | PTCARENOTE ---
pt. reports nausea improved; PO BP meds admin per orders- see MAR. Remains on Cardene gtt. Assisted w ordering dinner; awaiting order. Call lindquist remains w in reach.
[2024-12-17] MEDS: PLAVIX 75 MG PO (18:33)
[2024-12-17] MEDS: LOW STRENGTH ASPIRIN 81 MG PO (18:33)
--- NOTE | 2024-12-17 19:15 | PTCARENOTE ---
Vital signs downloaded from previous shift - unable to confirm vitals prior to 1900.
--- NOTE | 2024-12-17 22:00 | PTCARENOTE ---
Assumed care of patient. NIHSS completed w/ off-going RN. NIHSS score of 5 - see worklist for complete score. Neuro and PROPERTY ASSESSMENT MONITOR notified of similar total score, but improvement in some symptoms and worsening of others. Per neuro - CTA Head and Neck
ordered - patient taken to CT scan. AAOx2-3 - Initially patient unable to remember which hospital she was in, but able to recall on own w/ no prompting after approximately 5 minutes. Patient also slow to give month/year and needing frequent
reorientation. Patient remains mildly confused/forgetful/drowsy - awakes to verbal stimuli. SR/ST on the monitor. Patient on 2L POX 95% - lungs diminished at the bases. Patient incontinent/stress incont w/ purewick in place. Patient reports nausea
improved and prior MOORE gone. Patient w/ D5/0.45 NS running as ordered through [facility]. Cardene titrated off - see worklist.
[2024-12-17] MEDS: CRESTOR 40 MG PO (22:03)
[2024-12-17 23:23] LABS: Blood Urea Nitrogen 13 mg/dl (7-17); Calcium 9.0 mg/dl (8.4-10.2); Carbon Dioxide 23 mmol/L (22-30); Chloride 102 mmol/L (98-107); Estimated Creatinine Clearance 63 ml/min; Glucose 123 mg/dl (70-99); Magnesium 2.0 mg/dl (1.6-2.3); Potassium 3.9 mmol/L (3.5-5.1); Sodium 130 mmol/L (135-145); eGFR > 60.00
[2024-12-18] VITALS (75 sets, daily range): BP systolic 98–194; BP diastolic 44–103; BMI 29.1
--- NOTE | 2024-12-18 00:45 | PTCARENOTE ---
Patient w/ 15 beat run of [employer] - VSS. Patient asymptomatic. MENAGERIE CARETAKER notified - BMP and mag ordered and drawn. K rider ordered and hung - see MAR. Neuro status remains unchanged from prior assessment - patient AAOx2-3 - confused/forgetful - slow to
respond at times and needs frequent reorientation.
[2024-12-18] MEDS: COMPAZINE 10 MG IV (03:56)
[2024-12-18 04:49] LABS: Hematocrit 37.2 % (37.0-47.0); Hemoglobin 11.8 g/dL (12.0-16.0); Mean Corp Hgb Conc. 31.7 g/dL (33.0-37.0); Mean Corpuscular Volume 97.1 fL (81.0-99.0); Platelet Count 250 10^3/uL (130-400); Red Cell Dist. Width 13.6 % (11.5-14.5)
[2024-12-18] MEDS: D5/0.45%NACL IV (05:08)
[2024-12-18] MEDS: D5/0.45%NACL 1000 IV ×2 (05:08→18:13)
[2024-12-18 05:27] LABS: Blood Urea Nitrogen 22 mg/dl (7-17); Calcium 8.2 mg/dl (8.4-10.2); Carbon Dioxide 21 mmol/L (22-30); Chloride 109 mmol/L (98-107); Estimated Creatinine Clearance 63 ml/min; Glucose 129 mg/dl (70-99); Potassium 4.4 mmol/L (3.5-5.1); Sodium 136 mmol/L (135-145); eGFR > 60.00
--- NOTE | 2024-12-18 05:50 | PTCARENOTE ---
Patient's neuro status remains unchanged from prior assessment. Patient woke up from sleep complaining of nausea - PRN Compazine given - see MAR. Patient reports nausea subsiding after administration.
--- NOTE | 2024-12-18 08:00 | PTCARENOTE ---
Received pt @ change of shift; [facility] completed w off-going RN- scored 6- see flow sheet. Neuro status waxing/waning; R vision and R arm sensation improved; noted to have worsening confusion/aphasia. Neuro to bedside this AM aware. BP reg adjusted
per neuro to ensure proper perfusion. Pt. drowsy, awakens to verbal stim; ox2, required reorientation to time/place; confused/forgetful; denies pain. ST on monitor. SpO2 95% on 2LNC. Auscultated dim breath sounds posteriorly. +BS, abd round;
denies nausea. Stress inc/inc bladder- purewick in place; bladder stimulator device. #18 L AC patent, dressing c/d/i. # 20 R hand w IVF- see APR. # 20 R AC patent, dressing c/d/i. Assisted w repositioning in bed. Call lindquist placed w in reach; bed
alarm active.
--- NOTE | 2024-12-18 08:25 | W.PN.NEURO.1 ---
Today's Communication / Plan
-
plan communicated to primary team via TT
Neuro Assessment/Plan
Assessment
#stroke in the left temporooccipital lobe
# small acute/subacute left thalamic infarct
Mechanism is most likely atheroemoblic vs. cardioembolic. No afib on EKG. states that she may have missed doses of her medications. She is post TNK and neither POINT nor SAMPRISS trials included post TPA patient's in the trial. She doesn't have
significant posterior intracranial athero to my eye to suggest ICAD as a mechanism. At this time, I recommend continuing her home 81mg aspirin as secondary stroke prevention to minimize risk and to encourage medication compliance. Will need further
stroke work-up to eval for other potential mechanisms listed below. Her fluctuating exam could be due to being perfusional. I recommend decreasing her home BP meds for now to half dose and will increase at a later time, most likely prior to
discharge to home dose.
Stroke labs. LDL = 70,
Plan
- 81mg aspirin daily
- high intensity statin
- TTE
- decrease metoprolol succinate to 25mg daily and amlodipine to 5mg daily
- HgbA1c, DDimer, Trop, BNP, ESR and U/A to look for UTI
- will need outpatient cadiac monitoring to eval for afib
Subjective/Objective
Subjective Data
Date of Service: December 18, 2024
Yesterday, finished 24 hours post TNK. Initially, discussed starting rectal aspirin due to PO intolerance but now taking med. Restarted on home amlodipine 10mg dailyand 50mg Metoprolol XL. Nasuea improved over the day. Given 81mg aspirin and 75mg
plavix.
Overnight, I was messaged on TT by primary team about fluctuating NIHSS. I recommended a CTA head and neck out of concern for new LVO or new stroke causing new symptoms.
This morning she is sleepy. She has trouble talking because she can't think of the words. She states she feels well. denies pain. I asked if she always takes her meds or if she ever missed her medications, specifically her home aspirin. She said she
sometimes misses her medications at home. I spoke to her nurse this morning who states that her exam still fluctuates. She is off cardene but BP has decreased to SBP 110s on just home meds.
Objective Data
Vital Signs
Temp Pulse Resp BP Pulse Ox
36.6 C 109 23 117/58 97
12/18/24 07:12 12/18/24 06:30 12/18/24 06:30 12/18/24 06:30 12/18/24 06:30
Lab Results
12/18/24 04:33
12/18/24 04:33
PT 13.2 Sec (11.4-14.6) 12/17/24 04:12
INR 0.97 12/17/24 04:12
APTT 28.3 Sec (23.4-35.0) 12/17/24 04:12
Sodium 136 mmol/L (135-145) 12/18/24 04:33
Potassium 4.4 mmol/L (3.5-5.1) 12/18/24 04:33
BUN 22 mg/dl (7-17) H 12/18/24 04:33
Glucose 129 mg/dl (70-99) H 12/18/24 04:33
Calcium 8.2 mg/dl (8.4-10.2) L 12/18/24 04:33
LDL Cholesterol, Calc 70 mg/dl 12/17/24 04:12
Patient Allergies
ibandronate sodium (From Boniva) Allergy (Verified 12/16/24 08:50)
Nausea / Vomiting
Review of Systems
-
All other systems: Not reviewed unless documented
Physical Exam
-
General: Well Developed, Well Nourished and No Apparent Distress
Eyes: Unremarkable
HEENT: Normocephalic, Atraumatic and Anicteric
Skin: Unremarkable
Extremities: No Clubbing
Psych: Unremarkable
Extended Neurological Exam
Mood & Affect: Mood Unremarkable and Affect Unremarkable
Attention Span & Concentration: Interactive and Lethargic (sleepy but wakes up and can answer questions slowly and with simple responses. most likely moderate expressive aphasia.)
Memory: Unable to Assess
Tremor: Hand Tremor Absent
Involuntary Movement: None
Speech: Expressive Aphasia
Cranial Nerve II: Left Eye: Pupillary Reactivity Unremarkable and Unable to Assess Visual Díaz (would fall asleep during exam)
Cranial Nerve II: Right Eye: Pupillary Reactivity Unremarkable and Unable to Assess Visual Díaz (would fall asleep during exam)
Cranial Nerves III, IV, : Extraocular Movement: Extraocular Movement Full in all Directions
Cranial Nerve VII: Facial Symmetry: Reduced (slight R nasolabial fold flattening)
Cranial Nerve VIII: Hearing: Unremarkable Hearing to Normal Conversational Volume
Cranial Nerves IX, X: Palate Movement: Palate Elevation Symmetric
Cranial Nerve XI: Shoulder Shrug: Unremarkable
Cranial Nerve XII: Tongue Protusion: Midline
Muscle Strength, Overall: Reduced (4/5 on right)
Muscle Bulk & Tone: Bulk Unremarkable and Tone Unremarkable
Pronator Drift: Drift in Right Upper Extremity and Drift in Right Lower Extremity
Touch Sensation: Unremarkable
Coordination: Vzjwrz-zjeg-vdzfoj Testing Unremarkable
Gait & Station: Unable to Assess
Data Reviewed
-
CT-A: Image Reviewed (Occlusion of the proximal left posterior cerebral artery. Large left temporal-occipital region stroke. aortic arch atherosclerosis. bilateral ICA atherosclerosis. No significant posterior atherosclerosis leading to L FIELD SERVICE TECHNICIAN
occlusion)
MRI Head: Image Reviewed (Large nonhemorrhagic acute/subacute stroke in the left temporooccipital lobe. small acute/subacute left thalamic infarct.)
[2024-12-18] MEDS: NORVASC PO (09:22)
[2024-12-18] MEDS: TOPROL XL PO ×2 (09:22→09:49)
[2024-12-18] MEDS: LOW STRENGTH ASPIRIN PO (09:49)
[2024-12-18] MEDS: ZETIA PO (09:49)
[2024-12-18] MEDS: NSS (PRESERVATIVE FREE) 10 ML IV (09:49)
[2024-12-18] MEDS: PROTONIX IV 40 MG IV (09:50)
[2024-12-18] MEDS: NSS 1000 IV (10:28)
[2024-12-18 10:39] LABS: D-Dimer 2.44 ug/mlFEU (0.00-0.50)
--- NOTE | 2024-12-18 10:40 | PTOTSP ---
Speech-Language Evaluation
Pt is at an increased risk of aspiration given history of TIA (2019) and asthma compounded by nonhemorrhagic acute/subacute infarction within the left temporooccipital lobe and additional tiny acute/subacute left thalamic infarct. When awake and
alert, pt managed thin liquids via straw with no overt s/sx of aspiration. With puree solids, pt intermittently belched and reported globus sensation following a few bites. Suspect possible pharyngeal stasis secondary to questionable esophagitis
(noted in head/neck CTA 12/17). WBC trending upward.
Limited cognitive-communication and language assessment due to waning mentation and poor ALEKSANDRA. Pt answered yes/no questions regarding temporal environment and was oriented to self only. Named items from description with 100% accuracy. Pt demo mild
dysarthria (dysarthria noted on speech evaluation 10/20/2019). Attempted SLUMS ([facility] Status) Examination. Pt scored 0/9. Assessment discontinued. Limited cognitive-communication assessment due to waning mental status and
lethargy.�
Recommend:
1. Temporarily NPO due to GI concerns for bleeding. Will need a GI clearance prior to PO trials
2. Meds nonorally
3. Oral care 3x/day
4. CIRCULATING PROCESS INSPECTOR to follow
[2024-12-18 10:48] LABS: Hematocrit 28.4 % (37.0-47.0); Mean Corp Hgb Conc. 31.7 g/dL (33.0-37.0); Mean Corpuscular Volume 97.3 fL (81.0-99.0); Platelet Count 243 10^3/uL (130-400); Red Cell Dist. Width 13.7 % (11.5-14.5)
[2024-12-18 11:03] LABS: Hemoglobin 9.0 g/dL (12.0-16.0)
--- NOTE | 2024-12-18 11:03 | W.PN.INTV ---
Today's Communication / Plan
Recommendations
Neurochecks continue
Allow for permissive hypertension for increased perfusion pressures
Brain MRI and repeat CT head reviewed-significant infarcts
Stable for transfer to telemetry-if transferred from ICU then coffee weigher will sign off
Assessment
-
79-year-old former smoking female with a history of hypertension, hyperlipidemia, asthma, osteoporosis, TIA 2019, bladder sling presents with abrupt onset right-sided weakness and right side hemianopsia felt to have acute ischemic stroke and
received TNK-coffee weigher consulted for post TNK/critical care management 12/16/2024.
Acute ischemic CVA with right-sided weakness and right-sided homonymous hemianopsia
Left temporal occipital lobe and small acute/subacute left thalamic infarct-felt to be atheroembolic versus cardioembolic
Status post TNK
Esophagitis
Conditions present prior to admission:
Hypertension.
Hyperlipidemia.
Asthma.
Osteoporosis.
TIA 2019.
Bladder sling.
Plan
Admit patient to medical intensive care unit
Supplemental oxygen to maintain saturation greater than 92%
Aspiration precautions
Neurology evaluation ongoing-correspondence reviewed
Monitor blood pressure closely-goal SBP < 180, DBP < 105-allow for permissive hypertension in the first 24 hours-neurology recommended decreasing home antihypertensives to increase perfusion pressures
Neuro checks per protocol
Repeat CT head 12/16/2024 compared to same-day CT at 10:[address] head 1:16 PM-no significant change in left posterior temporal occipital infarct, no acute hemorrhage
MRI head/MRA head 12/17/2024-large confluent region of nonhemorrhagic acute/subacute infarct within the left temporal occipital lobe and an additional tiny acute/subacute left thalamic infarct
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
from prior, severe circumferential wall thickening of the upper thoracic esophagus new from prior suggesting esophagitis
Status post tenecteplase infusion
Hold antiplatelet therapy �24 hours
Check lipid panel-goal LDL less than 70
Echocardiogram pending
Check A1c
Carotid circulation evaluation
Outpatient extended telemetry to rule out underlying atrial fibrillation
Atorvostatin 80 mg daily if tolerated
Monitor blood sugar-insulin as needed-goal blood sugar 140-180
Significant esophagitis noted
Pantoprazole 40 mg IV twice daily
DVT prophylaxis-sequential for 24 hours-now Lovenox initiated
Speech therapy/occupational therapy/physical therapy evaluation
Stroke education packet
No driving-patient needs outpatient visual field testing/clearance by ophthalmology for driving clearance
Neurologic status appears to have stabilized-consider transferring out of ICU to telemetry-coffee weigher will sign off at that point
She reportedly sees a journalism internship in the outpatient for her asthma-on Breo/albuterol-last seen 1 year ago-I checked our records-she does not follow with [facility]
Critical care statement: A total of 40 minutes of critical care time was provided for this patient today. This includes management of unstable vital signs, evaluation of the patient at bedside, reviewing the patient's pertinent medical records
including radiographs, microbiology, laboratory evaluations, and discussion with primary team, consultants, pharmacy, nutrition, physical therapy, case management, charge nurse, critical care nursing, and respiratory therapy.
Diagnostic data:
CT head 12/16/2024-moderate size area of hypoattenuation within posterior left parietal and occipital lobe suspicious for subacute infarct
CT head and neck angiogram 12/16/2024-occlusion of proximal left posterior cerebral artery, severe stenosis of the proximal right cerebral artery and patent basilar artery, proximal segments of both middle cerebral arteries are patent, mild to
moderate calcified plaques in the left carotid bulb
CT head 12/16/2024 after complaining of headache post TNK-no evidence for hemorrhagic transformation of left parietal/occipital infarct
Echocardiogram 09/06/2020-EF 55-60%, PA systolic 42, normal diastolic function
Subjective Dataa
Subjective Data
Date of Service:
Date of Service: December 18, 2024
Chief Complaint: Ceramic Design Engineer Follow Up and Pulmonary Follow Up
Subjective:
Neurologic status waxes and wanes, currently no ataxia, or right upper or lower extremity weakness, multiple CTs of the head have not changed, no headache or nausea
Review of Systems
General: Other (Per HPI)
Objective Data
Data Reviewed
Vital Signs / I&O / Oxygen:
Vital Signs
Temp Pulse Resp BP Pulse Ox
98 F 109 23 117/58 97
12/18/24 07:12 12/18/24 06:30 12/18/24 06:30 12/18/24 06:30 12/18/24 06:30
Intake and Output
12/17/24 12/18/24 12/19/24
06:59 06:59 06:59
Intake Total 1420 / 1525 2595.0 / 2675.0 320 / 320
Output Total 780 / 780 1600 / 1600 300 / 300
Balance 640 / 745 995.0 / 1075.0 20 / 20
SaO2 97
Nasal Cannula flow liters per 2
minute
Physical Exam
General: Respiratory Distress (n) and Comfortable
HEENT: Normocephalic, Anicteric and Moist Mucous Membranes
Cardiovascular: Regular Rhythm
Respiratory: Wheeze (n), Crackles (n), Rhonchi (n), Non-Labored Respirations, Accessory Resp Muscle Use (n) and Stridor
GI: Soft, Distended and Non Tender
Neurology: Awake, Alert and No Motor Deficits
Skin: Warm, Good Color (n), Cyanosis (n) and Jaundice (n)
Labs/Micro/Reports
Lab Data
12/18/24 04:33
--- NOTE | 2024-12-18 11:30 | PTCARENOTE ---
Pt. w new GI bleeding. 1st episode @ 0945 mod black/tarry stool; heme (+). Dr. Dumas to bedside and made aware. Further orders received- pt. NPO w GI management trainee program stores. Admin standing IV Protonix and held aspirin and BP reg, aware- see APR. Pt. w 2x more
episodes GI bleed, stool black/burgundy gelatinous. Initiated NSS bolus- see APR. Blood work drawn and sent to lab; hgb results-9.0- relayed to Dr. Dumas. GI, Dr. Tapia, also to bedside- updated. Pt. appears more lethargic than in Am; otherwise
neuro symptoms unchanged.
--- NOTE | 2024-12-18 11:32 | CON.GI ---
Consultation
-
Date/Time Consultation Requested: 12/18/2024
Date/Time Consultation Performed: 12/18/2024
Performing Provider: Jorge Tapia
Reason for Consultation: UGIB
Medical History
Chief Complaint / HPI
Chief Complaint: UGIB
History of Present Illness:
79 years old female with h/o HTN, hyperlipidemia, asthma, TIAs, and PVD who p/w acute onset of neurological deficit consistent with acute stroke. Received TNK on 12/16/2024 and was transferred to ICU for monitoring. Around 9:45 am, pt had large
melenic stool, and had multiple melenic stool which is turning maroon-burgundy. Denies abdominal pain.
Past Medical History
Past Medical History: CVA, HTN, Hypercholesterolemia and Other
Past Surgical History: Other
Social History
Tobacco: Non-Smoker
Alcohol: None
Drug: None
Allergies / Home Medications
Allergy/AdvReac Type Severity Reaction Status Date / Time
ibandronate sodium (From Allergy Nausea / Verified 12/16/24 08:50
Boniva) Vomiting
�Medication �Instructions �Recorded
dicyclomine 20 mg tablet 20 mg PO DAILY Gastrointestinal 10/19/19
Issue
esomeprazole magnesium 20 mg 40 mg PO DAILYPRN PRN ged 10/19/19
capsule,delayed release (Nexium)
sertraline 100 mg tablet 100 mg PO DAILY Depression 10/19/19
albuterol sulfate 90 mcg/actuation 2 puff inhalation R Q4HPRN PRN 09/15/22
aerosol inhaler shortness of breath
amlodipine 10 mg tablet 10 mg PO DAILY Blood Pressure 09/15/22
aspirin 81 mg tablet,delayed 81 mg PO DAILY Blood Clot 09/15/22
release Prevention/Tx
metoprolol succinate 50 mg 50 mg PO DAILY Blood Pressure 09/15/22
tablet,extended release 24 hr
mirabegron 50 mg tablet,extended 50 mg PO DAILY Urinary Issue 09/15/22
release 24 hr (Myrbetriq)
ezetimibe 10 mg tablet 10 mg PO DAILY High Cholesterol 02/13/23
rosuvastatin 40 mg tablet 40 mg PO HS High Cholesterol 02/13/23
fluticasone furoate 200 1 inh inhalation R DAILY 02/13/24
mcg-vilanterol 25 mcg/dose Lung/Breathing Issues
inhalation powder (Breo Ellipta)
calcium carbonate 500 mg PO DAILY Supplement 12/16/24
cholecalciferol (vitamin D3) 10 10 mcg PO DAILY Supplement 12/16/24
mcg (400 unit) tablet (Vitamin D3)
evolocumab 140 mg/mL subcutaneous 140 mg SC Q2W High Cholesterol 12/16/24
pen injector (Repatha SureClick)
Review of Systems
Vital Signs
Temp Pulse Resp BP Pulse Ox
98.6 F 110 30 100/75 98
12/18/24 11:09 12/18/24 11:00 12/18/24 11:00 12/18/24 11:00 12/18/24 11:00
Physical Exam
Exam
General: Well Developed and Well Nourished
HEENT: Normocephalic
Cardiac: S1/S2 and Other (tachycardic)
GI: Soft, Non Tender, Non Distended and Normal Bowel Sounds
Results
WBC 25.1 10^3/uL (4.8-10.8) H 12/18/24 10:16
Hgb 9.0 g/dL (12.0-16.0) L D 12/18/24 10:16
Hct 28.4 % (37.0-47.0) L 12/18/24 10:16
MCV 97.3 fL (81.0-99.0) 12/18/24 10:16
Plt Count 243 10^3/uL (130-400) 12/18/24 10:16
Absolute Neuts (auto) 7.0 10^3/uL (1.4-6.5) H 12/16/24 09:53
PT 13.2 Sec (11.4-14.6) 12/17/24 04:12
INR 0.97 12/17/24 04:12
APTT 28.3 Sec (23.4-35.0) 12/17/24 04:12
Sodium 136 mmol/L (135-145) 12/18/24 04:33
Potassium 4.4 mmol/L (3.5-5.1) 12/18/24 04:33
Chloride 109 mmol/L (98-107) H 12/18/24 04:33
Carbon Dioxide 21 mmol/L (22-30) L 12/18/24 04:33
BUN 22 mg/dl (7-17) H 12/18/24 04:33
Creatinine 0.6 mg/dL (0.6-1.0) 12/18/24 04:33
Calcium 8.2 mg/dl (8.4-10.2) L 12/18/24 04:33
Total Bilirubin 0.5 mg/dl (0.2-1.3) 12/16/24 09:53
AST 34 U/L (14-36) 12/16/24 09:53
ALT 25 U/L (0-35) 12/16/24 09:53
Alkaline Phosphatase 132 U/L (38-126) H 12/16/24 09:53
Diagnostic Image Results:
Prior GI Procedures:
EGD:
Colonoscopy:
Assessment / Plan
-
79 years old female with h/o HTN, hyperlipidemia, asthma, TIAs, and PVD who p/w acute onset of neurological deficit consistent with acute stroke. Received TNK on 12/16/2024 and was transferred to ICU for monitoring. Around 9:45 am, pt had large
melenic stool, and had multiple melenic stool which is turning maroon-burgundy.
Impression / Rec:
1. Acute UGIB - pt received TNK on 12/16, ASA/plavix yesterday. Around 9:45 this am had large melena and subsequently had multiple melena which is turning burgundy/maroon colored stool. Tachycardic since this AM. Hgb dropped from 15 on admission
to 9 about an hour ago. Denies abdominal pain. Suspect UGIB and will need EGD for eval/intervention. Discussed with neurology re: plan.
Total Time Spent with Patient (in minutes): 55
-
-
Thank you for consultation and allowing me to participate in the patient's care. Please call the economics professor GI physician during the after hours with any questions or concerns.
[2024-12-18] MEDS: PROTONIX 100 IV ×2 (11:43→21:08)
--- NOTE | 2024-12-18 12:38 | W.PN.UPDATE ---
Update Note
Progress Note Update
Since patient seen at 8 AM this morning patient had upper GI bleed
Keep in ICU
GI evaluation
If endoscopy needed-moderate to high risk with recent stroke-neurology following closely
--- NOTE | 2024-12-18 12:39 | PTCARENOTE ---
Report given to GI lab. Pt. transported via bed on teletypesetter monitor w IVF and protonix gtt to GI lab. Family @ bedside, updated. Awaiting report from GI lab.
--- NOTE | 2024-12-18 13:12 | W.PN.HOSP.TC ---
Addendum entered and electronically signed by Pablo Dumas MD 12/18/24 16:54:
Acute blood loss anemia.
EGD with evidence of esophageal ulcers and bleeding stigmata and duodenal ulcerations.
Continue Protonix drip and IVF.
Hemoglobin continues to drop (15->8.2). Discussed with daughter(Jhoana Wilson) at bedside in the afternoon/evening and after discussion of risks and benefits, she consented for blood transfusion for mother (mother unable to consent due to
lethargy). If hemoglobin continues to drop or more signs of bleed, can order blood transfusion immediately in the setting of active GI bleed and acute blood loss anemia.
Original Note:
Today's Communication/Plan
-
NPO. IV Protonix. IV fluids. Monitor hemoglobins. GI consult.
Assessment / Plan
Assessment / Plan
Physical exam:
General: Acutely ill
HEENT: Normocephalic, Atraumatic and Dry Mucous Membranes
Respiratory: Clear to Auscultation; Negative Wheezes, Rales or Rhonchi
Cardiac: Regular Rhythm and S1/S2
GI: Soft, Nontender and Nondistended
Musculoskeletal: No Clubbing, No Cyanosis and No Edema
Neuro: Lethargic, fluctuating neurological deficits.
Psych: Limited judgment and insight
A/P:
Acute upper GI bleed:
Highly suspected acute upper GI bleed in the setting of melena, drop in hemoglobin, increased in BUN, use of TNK and antiplatelets.
N.p.o.
IV fluid
IV Protonix
Repeat hemoglobin
GI consulted by myself. Might need upper endoscopy but at high risk due to recent stroke.
Discussed with family and explained at length current situation and risk of worsening GI bleed and or stroke but first needs to evaluate GI bleed and maintain hemodynamics. Discussed also the possibility of requiring blood transfusion but at the
moment we will monitor.
Hypotension/shock:
Likely due to hypovolemia and GI bleed
Stat bolus normal saline and continue IV fluids.
Consider pressors if hypotension does not improve with fluids.
Monitor blood pressure closely.
Hold all antihypertensives.
Worsening stroke symptoms:
Unlikely stroke related but most likely related to hypotension and hypoperfusion to the brain
Neurology discussed with me yesterday and saw the patient today. She has been started on medications as he recommended. Today medications changed around by neurology. I changed around medications again by myself and discussed with neurology
changes made due to concern of acute GI bleed.
Acute stroke:
Status post TNK
No antiplatelets or anticoagulation for 24 hours. Antiplatelets 24 hours postthrombolytic.
Seen all brain images including CT of the head, CTA of the head and neck, CT perfusion brain. Pending MRI of the brain
Discussed with electrical equipment technician, neurologist, and processing analyst.
Discussed with family at bedside yesterday and explained plan of care and risks associated with this critical ill patient
Will give further recommendations based on clinical course
Discussed with RN at bedside
Persistent nausea:
Continue antiemetics
Gentle IV fluid hydration
On PPI
Headache:
Headache preceded stroke and thrombolytics but there was some concern of worsening so CT scan of the head was done post thrombolytics. CT shows no acute hemorrhage.
Pain control continue to monitor
Leukocytosis:
Likely reactive but rule out infectious source
Check chest x-ray and UA
Follow-up trend
Hypertension:
Allowed permissive hypertension initially but now hold them due to hypotension.
Hyperlipidemia:
Will start statins when able to take oral
DVT prophylaxis:
SCDs
Hold Lovenox
CODE STATUS:
Full code
Total Critical Care Time__65___ minutes. I was immediately available to the patient and staff. I personally examined, reviewed labs, diagnostic images/reports, interpretations, treatment plans, discussed patient care with other providers and
family or caregivers (if patient is unable to make decisions), entered orders as appropriate and documented the medical record.
Anticipated Discharge: > 48 hours
Subjective/Interval History
-
Date of Service: December 18, 2024
She had some fluctuation in her mental status and had a repeat CTA of the head and neck by neurology recommendation earlier this morning. Patient with hypotension, lethargy, and melena stool this morning upon evaluation. Looks acutely ill and
frail.
Objective Data
-
Labs:
Laboratory Results
12/18/24 12/18/24 12/18/24
04:33 10:16 14:00
WBC 18.6 H 25.1 H
Hgb 11.8 L 9.0 L D Pending
Hct 37.2 28.4 L Pending
Plt Count 250 243
Sodium 136
Potassium 4.4
Chloride 109 H
Carbon Dioxide 21 L
BUN 22 H
Creatinine 0.6
Glucose 129 H
Calcium 8.2 L
12/18/24
20:00
WBC
Hgb Pending
Hct Pending
Plt Count
Sodium
Potassium
Chloride
Carbon Dioxide
BUN
Creatinine
Glucose
Calcium
Vital Signs:
Vital Signs
Temp Pulse Resp BP Pulse Ox
98.6 F 110 30 100/75 98
12/18/24 11:09 12/18/24 11:00 12/18/24 11:00 12/18/24 11:00 12/18/24 12:20
I&O
12/17/24 12/18/24 12/19/24
06:59 06:59 06:59
Intake Total 1420 / 1525 2595.0 / 2675.0 1490 / 1490
Output Total 780 / 780 1600 / 1600 300 / 300
Balance 640 / 745 995.0 / 1075.0 1190 / 1190
--- NOTE | 2024-12-18 14:00 | PTCARENOTE ---
Report received from GI lab and GI lab RNs transported pt. back to [id number]. No interventions during scope and plan to continue w supportive management NPO, IVF, and protonix gtt. Family @ bedside, updated.
[2024-12-18 14:58] LABS: Hematocrit 26.2 % (37.0-47.0); Hemoglobin 8.2 g/dL (12.0-16.0)
[2024-12-18 16:25] LABS: Urine Character Slightly Cloudy (Clear)
[2024-12-18 17:05] LABS: Urine Red Blood Cell 0-2 /HPF (0-2)
[2024-12-18 17:06] LABS: Urine White Cell 50-60 /HPF (0-5)
--- NOTE | 2024-12-18 18:04 | PTCARENOTE ---
Pt. remains w ongoing melana; frequent/burgundy stools. Rectal trumpet inserted. Complete hygiene provided and pt repositioned. Pt. remains lethargic w waxing/waning mental status- see neuro flow sheet. Repeat hgb results relayed to Dr. Dumas. No
orders for transfusion @ this time; type and cross, ABO2, and blood consent obtained on shift. Plan to trend hgb. Pt. also w ongoing urinary retention; BS/SC per protocol- see flow sheet; UA/culture from SC sent to lab; awaiting results
[2024-12-18 19:16] LABS: Hematocrit 20.8 % (37.0-47.0); Hemoglobin 7.0 g/dL (12.0-16.0)
--- NOTE | 2024-12-18 21:37 | PTCARENOTE ---
Assumed care of patient. NIHSS completed w/ off-going RN - score of 6 - see worklist. Neuro status waxing/waning - drowsy and intermittently lethargic awakening to verbal stimuli. Difficult to obtain accurate NIH d/t waxing/waning mental status -
SLEEVE SETTER SAFETY STITCH notified. AAOx1-2 [address]/time - confused/forgetful w/ aphasia. ST on the monitor w/ frequent ectopy - ECG obtained and given to SLEEVE SETTER SAFETY STITCH. Patient w/ elevated BPs - SLEEVE SETTER SAFETY STITCH aware. POX 97% on 2LNC - lungs diminished at
the bases. Abd soft/round w/ +BS - reports no nausea. Patient w/ rectal trumpet in place draining melena/liquid burgundy stool. Incontinent/stress incontinent bladder w/ purewick in place. Patient w/ Protonix and d5/0.45NS running as ordered - see
APR. H&H drawn - Hgb resulted at 7.0/HCT - SLEEVE SETTER SAFETY STITCH notified and 2 units PRBCs ordered.
[2024-12-18] MEDS: LOPRESSOR 5 MG IV (22:05)
[2024-12-19] VITALS (59 sets, daily range): BP systolic 117–194; BP diastolic 37–98; PULSE 110; O2SAT 97; BMI 30.1
--- NOTE | 2024-12-19 00:49 | PTCARENOTE ---
First unit of PRBCs transfused w/o event. Second unit of PRBCs infusing. Patient's HR and BP elevated - CEMETERY KEEPER notified - one time dose of IV Lopressor ordered and given - see MAR. Patient's neuro status unchanged from previous assessment - remains
confused/forgetful/drowsy and intermittently lethargic. Patient w/ 2 episodes of black tarry stool w/ BRB that leaked around rectal trumpet. Patient intermittently complaining of nausea that subsides quickly without intervention.
[2024-12-19] MEDS: COMPAZINE 10 MG IV (01:25)
[2024-12-19] MEDS: LOPRESSOR 5 MG IV (02:43)
[2024-12-19 04:16] LABS: INR 1.04; PT 13.9 Sec (11.4-14.6)
[2024-12-19 04:17] LABS: APTT 22.4 Sec (23.4-35.0)
[2024-12-19 04:35] LABS: Blood Urea Nitrogen 20 mg/dl (7-17); Calcium 7.6 mg/dl (8.4-10.2); Carbon Dioxide 21 mmol/L (22-30); Chloride 112 mmol/L (98-107); Estimated Creatinine Clearance 64 ml/min; Glucose 127 mg/dl (70-99); Magnesium 2.0 mg/dl (1.6-2.3); Sodium 137 mmol/L (135-145); eGFR > 60.00
[2024-12-19 04:41] LABS: Potassium 3.6 mmol/L (3.5-5.1)
[2024-12-19 04:51] LABS: Hematocrit 30.3 % (37.0-47.0); Hemoglobin 10.8 g/dL (12.0-16.0); Mean Corp Hgb Conc. 35.6 g/dL (33.0-37.0); Mean Corpuscular Volume 87.8 fL (81.0-99.0); Nucleated Red Blood Cells % 0 %; Platelet Count 168 10^3/uL (130-400); Red Cell Dist. Width 14.1 % (11.5-14.5)
[2024-12-19] MEDS: KCL 270 MEQ IV (05:52)
[2024-12-19] MEDS: PROTONIX 100 IV (06:05)
--- NOTE | 2024-12-19 06:21 | PTCARENOTE ---
Patient's Hgb this AM improved to 10.8 s/p 2 units of PRBCs. Patient w/ occasional episodes of tachy up to 150s on monitor throughout night - nonsustained. SHOTGUN SHELL ASSEMBLY MACHINE OPERATOR aware. Additional dose of IV lopressor given - see MAR.
--- NOTE | 2024-12-19 08:00 | PTCARENOTE ---
Received pt @ change of shift; NIH completed, scored 5- see flow sheet. Neuro status remains waxing/waning. Pt. drowsy, awakens to verbal stim; ox2, required reorientation to time/place; confused/forgetful; denies pain. Sinus arrhythmia/ST on
monitor. SpO2 95% on 2LNC. Auscultated dim breath sounds posteriorly @ bases. +BS, abd round; denies nausea; rectal trumpet in place draining liquid burgundy stool; hgb stable this AM; no active bleeding per GI reports. Inc bladder- purewick in
place; bladder stimulator device. #20 L FA w K+ rider infusing. # 20 R hand w IVF and Protonix gtt- see APR. # 20 R AC patent, dressing c/d/i. Assisted w repositioning in bed. Am hygiene provided. Call lindquist placed w in reach; bed alarm active.
--- NOTE | 2024-12-19 08:10 | W.PN.HOSP.TC ---
Today's Communication/Plan
-
Speech consult
Resume aspirin
Slowly resume antihypertensives
PT/OT/PMR
Assessment / Plan
Assessment / Plan
Gen-awake, NAD
HEENT-NC, AT, anicteric, clear oral mm
Neck-supple
CV-reg, no M, +S1/S2
Lungs-clear B/L
Abd-soft, NT, ND
Ext-no edema
Musculoskeletal-no cyanosis, clubbing
Skin-warm and dry
Neuro-weak right lower extremity greater than right upper extremity
Psych-calm, cooperative
Acute upper GI bleed -GI bleed exacerbated by recent thrombolysis administration for acute stroke.
EGD completed 12/18. Shows diffuse esophageal ulcers with stigmata of recent bleeding. LA grade D esophagitis with bleeding. Coffee-ground material in the gastric body. Duodenal erosions without bleeding. No specimens collected.
Still with burgundy stools via rectal tube. Hemodynamically stable.
Now on IV Protonix twice daily per GI.
Acute blood loss anemia -due to acute GI bleed. Transfused 2 units of blood in 12/18. Hemoglobin improved 10.8 today. Monitor closely.
Hypotension/shock: Likely due to hypovolemia and GI bleed. Blood pressure recovered and now hypertensive. Did not require vasopressors.
Worsening stroke symptoms:
Unlikely stroke related but most likely related to hypotension and hypoperfusion to the brain
Acute stroke: Involving left temporooccipital lobe. Additional tiny acute/subacute left thalamic infarct.
Status post TNK
Okay to resume aspirin today. Discussed with neurology, GI.
Persistent nausea: Possibly related to acute upper GI bleed.
Continue antiemetics
Gentle IV fluid hydration
On PPI
Headache:
Headache preceded stroke and thrombolytics but there was some concern of worsening so CT scan of the head was done post thrombolytics. CT shows no acute hemorrhage.
Pain control continue to monitor
Leukocytosis: Suspect leukemoid reaction. Afebrile. Doubt infection.
Essential hypertension: Can slowly start resuming antihypertensives. Was on amlodipine and metoprolol succinate prior to admission.
Hyperlipidemia:
Resume rosuvastatin.
DVT prophylaxis:
SCDs
Hold Lovenox due to GI bleed.
CODE STATUS:
Full code
PT/OT/PMR
Anticipated Discharge: > 48 hours
Subjective/Interval History
-
Date of Service: December 19, 2024
Patient seen and examined. Complaining of feeling stuck in bed. Eager to start moving.
Objective Data
-
Labs:
Laboratory Results
12/19/24 12/19/24
02:00 03:49
WBC 21.2 H
Hgb Cancelled 10.8 L D
Hct Cancelled 30.3 L
Plt Count 168 D
PT 13.9
INR 1.04
APTT 22.4 L
Sodium 137
Potassium 3.6
Chloride 112 H
Carbon Dioxide 21 L
BUN 20 H
Creatinine 0.5 L
Glucose 127 H
Calcium 7.6 L
Vital Signs:
Vital Signs
Temp Pulse Resp BP Pulse Ox
98.3 F 103 27 172/66 97
12/19/24 07:10 12/19/24 06:30 12/19/24 06:30 12/19/24 06:30 12/19/24 06:30
I&O
12/18/24 12/19/24 12/20/24
06:59 06:59 06:59
Intake Total 2595.0 / 2675.0 3620 / 3620
Output Total 1600 / 1600 1100 / 1100
Balance 995.0 / 1075.0 2520 / 2520
Review of Systems
-
History Source: Patient
All other systems: Reviewed and negative
--- NOTE | 2024-12-19 08:24 | W.PN.INTV ---
Today's Communication / Plan
Recommendations
Neurochecks per protocol
Permissive hypertension for increased cerebral perfusion pressures
Brain MRI and repeat CT head reviewed-significant infarcts
High intensity statin, Crestor 40 mg HS, as well as aspirin and Zetia
Patient is stable for downgrade out of ICU to telemetry. No additional recommendations at this time. Certified Court/Medical Interpreter/Pulmonary service will now sign off. Please reconsult if there are any additional questions/concerns, or if patient's respiratory
status deteriorates.
Assessment
-
79-year-old former smoking female with a history of hypertension, hyperlipidemia, asthma, osteoporosis, TIA 2019, bladder sling presents with abrupt onset right-sided weakness and right side hemianopsia felt to have acute ischemic stroke and
received TNK-medical chief technician consulted for post TNK/critical care management 12/16/2024.
Acute ischemic CVA with right-sided weakness and right-sided homonymous hemianopsia
Left temporal occipital lobe and small acute/subacute left thalamic infarct-felt to be atheroembolic versus cardioembolic
Status post TNK
UGIB with diffuse esophageal ulcers with stigmata of recent bleeding as well as duodenal erosions without bleeding seen on EGD from 12/18/2024
Esophagitis
Conditions present prior to admission:
Hypertension.
Hyperlipidemia.
Asthma.
Osteoporosis.
TIA 2019.
Bladder sling.
Plan
Continue supplemental oxygen as neeeded to maintain saturation greater than 92%
Aspiration precautions
Neurology evaluation ongoing-correspondence reviewed
Monitor blood pressure closely-goal SBP < 180, DBP < 105-allow for permissive hypertension in the first 24 hours-neurology recommended decreasing home antihypertensives to increase CP
Neuro checks per protocol
Repeat CT head 12/16/2024 compared to same-day CT at 10:[address] head 1:16 PM-no significant change in left posterior temporal occipital infarct, no acute hemorrhage
MRI head/MRA head 12/17/2024-large confluent region of nonhemorrhagic acute/subacute infarct within the left temporal occipital lobe and an additional tiny acute/subacute left thalamic infarct
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
from prior, severe circumferential wall thickening of the upper thoracic esophagus new from prior suggesting esophagitis
Status post tenecteplase infusion
Hold antiplatelet therapy �24 hours
LDL is 70. Continue with high intensity statin, Crestor 40 mg HS
Echocardiogram performed today showing preserved LVEF at 69% with mild moderate MR and mild to moderate TR with PASP 42 mmHg
A1c 5.9 from today
CTA head/neck from 12/17 showed occlusion of the proximal left posterior cerebral artery, severe stenosis of the proximal right cerebral artery,, severe stenosis of the proximal right cerebral artery, large left temporal�occipital region infarct,
with grossly patent bilateral common and internal carotid arteries with mild�moderate scattered calcific plaque in the bulbs bilaterally, and complete occlusion of the left external carotid artery with prompt reconstitution (similar to prior CTA
head/neck from 1 day prior on 12/16/2024
Outpatient extended telemetry to rule out underlying atrial fibrillation
Monitor blood sugar-insulin as needed-goal blood sugar 140-180
Significant esophagitis noted on CTA head/neck from 12/17; she is s/p EGD from yesterday (LA grade the with bleeding, diffuse esophageal ulcers and duodenal erosions without bleeding)
Pantoprazole 40 mg IV twice daily; deferred transitioning to PO PPI to GI
DVT prophylaxis - SCDs for now given her recent UGIB
Speech therapy/occupational therapy/physical therapy evaluation
Stroke education packet
No driving-patient needs outpatient visual field testing/clearance by ophthalmology for driving clearance
She reportedly sees a lead housekeeper in the outpatient for her asthma-on Breo/albuterol-last seen 1 year ago-she does not follow with [facility]
Patient is stable for downgrade out of ICU to telemetry. No additional recommendations at this time. Certified Court/Medical Interpreter/Pulmonary service will now sign off. Thank you for allowing us to be involved in the care of this patient. Please reconsult if there
are any additional questions/concerns, or if patient's respiratory status deteriorates.
Diagnostic data:
CT head 12/16/2024-moderate size area of hypoattenuation within posterior left parietal and occipital lobe suspicious for subacute infarct
CT head and neck angiogram 12/16/2024-occlusion of proximal left posterior cerebral artery, severe stenosis of the proximal right cerebral artery and patent basilar artery, proximal segments of both middle cerebral arteries are patent, mild to
moderate calcified plaques in the left carotid bulb
CT head 12/16/2024 after complaining of headache post TNK-no evidence for hemorrhagic transformation of left parietal/occipital infarct
Echocardiogram 09/06/2020-EF 55-60%, PA systolic 42, normal diastolic function
Total time spent today was 59 minutes for this encounter. Time includes reviewing laboratory test/imaging results, reviewing pertinent medical records, obtaining and reviewing medical history, performing an appropriate exam, ordering medications,
tests and procedures. Time also includes documentation of this encounter, coordinating patient care and communicating with other healthcare professionals. Total time does not include separately billed tests performed on this date of service.
Subjective Dataa
Subjective Data
Date of Service:
Date of Service: December 19, 2024
Chief Complaint: Certified Court/Medical Interpreter Follow Up and Pulmonary Follow Up
Subjective:
Patient seen this morning. No acute events reported overnight. Continues to feel weak like she cannot get out of bed.
Review of Systems
General: Other (Negative unless mentioned above)
Objective Data
Data Reviewed
Vital Signs / I&O / Oxygen:
Vital Signs
Temp Pulse Resp BP Pulse Ox
98.3 F 103 27 172/66 97
12/19/24 07:10 12/19/24 06:30 12/19/24 06:30 12/19/24 06:30 12/19/24 06:30
Intake and Output
12/18/24 12/19/24 12/20/24
06:59 06:59 06:59
Intake Total 2595.0 / 2675.0 3620 / 3777.5 315.0 / 315.0
Output Total 1600 / 1600 1100 / 1100
Balance 995.0 / 1075.0 2520 / 2677.5 315.0 / 315.0
SaO2 97
Nasal Cannula flow liters per 2
minute
Physical Exam
General: Respiratory Distress (n) and Comfortable
HEENT: Normocephalic, Anicteric and Moist Mucous Membranes
Cardiovascular: S1-S2 and Regular Rhythm
Respiratory: Wheeze (n), Crackles (n), Rhonchi (n), Non-Labored Respirations, Accessory Resp Muscle Use (n) and Stridor (n)
GI: Soft, Distended, Non Tender and Normal Bowel Sounds
Neurology: Awake, Alert and Tremors (n)
Skin: Warm, Dry, Cyanosis (n) and Jaundice (n)
Labs/Micro/Reports
Lab Data
12/19/24 03:49
12/19/24 03:49
Laboratory Results
12/19/24
03:49
PT 13.9
INR 1.04
APTT 22.4 L
[2024-12-19 09:18] LABS: Glycohemoglobin (HgbA1c) 5.9 % (4.0-5.9)
--- NOTE | 2024-12-19 10:00 | PTCARENOTE ---
SBP's elevated into 180-190's. Dr. Yadav aware and received further orders to restart PO BP med- see APR.
[2024-12-19] MEDS: PROTONIX IV 40 MG IV ×2 (10:09→19:56)
[2024-12-19] MEDS: NSS (PRESERVATIVE FREE) 10 ML IV ×2 (10:09→19:56)
[2024-12-19] MEDS: TOPROL XL 25 MG PO (10:09)
[2024-12-19] MEDS: D5/0.45%NACL 1000 IV (10:10)
[2024-12-19] MEDS: LOW STRENGTH ASPIRIN 81 MG PO (11:09)
[2024-12-19] MEDS: TYLENOL 650 MG PO ×2 (13:08→17:05)
[2024-12-19] MEDS: ZOLOFT 100 MG PO (13:08)
--- NOTE | 2024-12-19 13:28 | PTCARENOTE ---
Pt. worked w PT/OT this AM; assisted x2 w RW OOB to chair, tolerated activity. ASPHALT PLANT WORKER to bedside to assess; diet advanced per ASPHALT PLANT WORKER recommendations and daughter assisted w ordering meals. Pt. tolerated OOB to chair x 2Hs; assisted back to bed and
repositioned; saturated w urine and anitha hygiene provided, purewick replaced. Rectal trumpet remains in place. Protonix gtt d/c'd per order and admin IV push Protonix- see APR. Admin PO meds w thins, no s/s of asp, tolerated medical safety director. Inquired
to Dr. Yadav about hgb recheck; plan to check in AM. Daughter remains @ bedside, updated. Call ameena desai in reach.
--- NOTE | 2024-12-19 14:44 | W.PN.NEURO.1 ---
Addendum entered and electronically signed by Harsha Avery MD 12/19/24 20:32:
I saw and examined the patient today with the nurse practitioner Waleska Carmona and I agree with her assessment and management plan. Given below is my addendum.
The patient is a 79 years old female, who had a large nonhemorrhagic acute/subacute infarction in the left temporooccipital lobes as seen on the MRI. The CTA of the head and neck shows occlusion of the proximal left posterior cerebral artery, the
left vertebral artery is dominant and the basilar artery is patent.
The patient is status post TNK.
On neurologic examination the patient has a right homonymous hemianopsia. She was drowsy but was able to follow verbal commands. She has antigravity strength in bilateral upper and lower extremities and her speech is clear.
The plan is to continue with aspirin 81 mg daily and rosuvastatin.
The etiology of the stroke is likely secondary to emboli, the source of emboli is unspecified at this time, however cardioembolism is likely. The plan is to get a Holter monitor at the time of discharge. The patient will stay on the stroke pathway.
Will follow.
Original Note:
Today's Communication / Plan
-
.
Neuro Assessment/Plan
Assessment
#stroke in the left temporooccipital lobe
# small acute/subacute left thalamic infarct
Mechanism is most likely atheroemoblic vs. cardioembolic. No afib on EKG. states that she may have missed doses of her medications. She is post TNK and neither POINT nor SAMPRISS trials included post TPA patient's in the trial. She doesn't have
significant posterior intracranial athero to my eye to suggest ICAD as a mechanism. At this time, I recommend continuing her home 81mg aspirin as secondary stroke prevention to minimize risk and to encourage medication compliance. Will need further
stroke work-up to eval for other potential mechanisms listed below. Her fluctuating exam could be due to being perfusional. I recommend decreasing her home BP meds for now to half dose and will increase at a later time, most likely prior to
discharge to home dose.
Stroke labs. LDL = 70,
Plan
- 81mg aspirin daily.
- Slow lowering of blood pressure.
- decrease metoprolol succinate to 25mg daily and amlodipine to 5mg daily.
- TTE pending.
- will need outpatient cardiac monitoring to eval for afib
- LDL goal <70. LDL is 70. Continue home Repatha, rosuvastatin 40mg and ezetimibe 10mg daily.
- Goal normoglycemia, hbA1c is 5.9.
- Infectious workup per primary team.
� NIHSS and neurological checks per unit guidelines.
� Provide patient's family with a stroke education packet.
� PT/OT/ST evaluations.
� DVT prophylaxis.
- Follow-up with Neurology as an outpatient.
Subjective/Objective
Subjective Data
Date of Service: December 19, 2024
No acute events overnight. Patient remains lethargic.
Objective Data
Vital Signs
Temp Pulse Resp BP Pulse Ox
97.9 F 108 27 191/77 97
12/19/24 11:08 12/19/24 10:09 12/19/24 06:30 12/19/24 10:09 12/19/24 08:50
Lab Results
12/19/24 03:49
12/19/24 03:49
PT 13.9 Sec (11.4-14.6) 12/19/24 03:49
INR 1.04 12/19/24 03:49
APTT 22.4 Sec (23.4-35.0) L 12/19/24 03:49
Sodium 137 mmol/L (135-145) 12/19/24 03:49
Potassium 3.6 mmol/L (3.5-5.1) 12/19/24 03:49
BUN 20 mg/dl (7-17) H 12/19/24 03:49
Glucose 127 mg/dl (70-99) H 12/19/24 03:49
Calcium 7.6 mg/dl (8.4-10.2) L 12/19/24 03:49
LDL Cholesterol, Calc 70 mg/dl 12/17/24 04:12
Patient Allergies
ibandronate sodium (From Boniva) Allergy (Verified 12/16/24 08:50)
Nausea / Vomiting
LDL Level: <70, continue statin
Review of Systems
-
Unable to obtain full review of systems at this time due to: Lethargy
Physical Exam
-
General: Wearing Oxygen
Eyes: No Ptosis and PERRLA
HEENT: Normocephalic and Atraumatic
Neck: Full Range of Motion
Respiratory: No Dyspnea
GI: Non-distended
Extremities: No Clubbing, No Cyanosis and No Edema
Extended Neurological Exam
Mood & Affect: Mood Unremarkable and Affect Unremarkable
Attention Span & Concentration: Lethargic and Closes Eyes after Stimulation
Memory: Reduced
Tremor: Hand Tremor Absent and Head Tremor Absent
Involuntary Movement: None
Speech: Quality Unremarkable, Quantity Unremarkable and Expressive Aphasia (mild)
Cranial Nerve II: Left Eye: Pupillary Reactivity Unremarkable, Pupillary Size Unremarkable and Visual Díaz Reduced (right homonymous hemianopia)
Cranial Nerve II: Right Eye: Pupillary Reactivity Unremarkable, Pupillary Size Unremarkable and Visual Díaz Reduced (right homonymous hemianopia)
Cranial Nerves III, IV, : Extraocular Movement: Extraocular Movement Full in all Directions
Cranial Nerve VII: Facial Symmetry: Reduced (right facial droop)
Cranial Nerve VIII: Hearing: Unremarkable Hearing to Normal Conversational Volume
Cranial Nerve XII: Tongue Protusion: Midline
Muscle Strength, Overall: Reduced on Right (RUE 5-/5, RLE 5-/5)
Pronator Drift: No Drift in Upper Extremities and No Drift in Lower Extremities
Coordination: KOBY Satellites around Right
Modified Narinder Score (MRS)
-
Modified [place] Scale (mRS): Moderately severe disability. Unable to attend to bodily needs/walk.
Score: 4
Data Reviewed
-
CT-A: Report Reviewed and Image Reviewed
MRI Head: Report Reviewed and Image Reviewed
Echocardiogram: Pending
Lipid Profile: Report Reviewed
HgbA1C: Report Reviewed
P2Y12: Report Reviewed
Reviewed with: Physician, Patient and Family
Medications
-
Active Medications
Generic Name Dose Route Start Last Admin
Trade Name Freq PRN Reason Stop Dose Admin
Acetaminophen 650 mg 12/16/24 13:49 12/19/24 13:08
Acetaminophen 325 Mg Tablet PO 01/13/25 13:48 650 mg
Q4HPRN PRN Administration
MOORE, mild pain, or temp >100.4F
Albuterol 2 puff 12/19/24 11:24
Albuterol Hfa [90 Mcg/Dose] Inhaler INH
R Q4HPRN PRN
shortness of breath
Protocol
Amlodipine Besylate 5 mg 12/18/24 09:00 12/18/24 09:49
Amlodipine 5 Mg Tablet PO 01/15/25 08:59 Not Given
On Hold: 12/18/24 10:20 DAILY ROB
Aspirin 81 mg 12/17/24 18:00 12/18/24 09:49
Aspirin 81 Mg Chewable Tablet PO 01/14/25 17:59 Not Given
DAILY ROB
Calcium Carbonate 500 mg 12/20/24 08:00
Calcium Carbonate 500 Mg Tablet PO 01/17/25 07:59
DAILY ROB
Cholecalciferol 10 mcg 12/20/24 08:00
Cholecalciferol (Vitamin D3) 10 Mcg Tablet (400 Units) PO 01/17/25 07:59
DAILY ROB
Dicyclomine HCl 20 mg 12/20/24 08:00
Dicyclomine 10 Mg Capsule PO 01/17/25 07:59
DAILY ROB
Ezetimibe 10 mg 12/17/24 17:00 12/18/24 09:49
Ezetimibe (Zetia) 10 Mg Tablet PO 01/14/25 16:59 Not Given
On Hold: 12/18/24 10:21 DAILY ROB
Metoprolol Succinate 25 mg 12/18/24 09:00 12/18/24 09:49
Metoprolol 25 Mg Extended Release Tablet PO 01/15/25 08:59 Not Given
DAILY ROB
Ondansetron HCl 4 mg 12/16/24 15:00 12/17/24 08:15
Ondansetron 4 Mg/2 Ml Vial IV 01/13/25 14:59 4 mg
Q6HPRN PRN Administration
NAUSEA/VOMITING
Pantoprazole Sodium 40 mg 12/19/24 08:00 12/19/24 10:09
Pantoprazole Sodium 40 Mg/10 Ml Vial IV 01/16/25 07:59 40 mg
BID ROB Administration
Prochlorperazine Edisylate 10 mg 12/17/24 09:39 12/19/24 01:25
Prochlorperazine 10 Mg/2 Ml Vial IV 01/14/25 09:38 10 mg
Q6HPRN PRN Administration
nausea and or vomiting
Rosuvastatin Calcium 40 mg 12/17/24 22:00 12/17/24 22:03
Rosuvastatin (Crestor) 20 Mg Tablet PO 01/14/25 21:59 40 mg
On Hold: 12/18/24 10:21 HS ROB Administration
Resume: 12/19/24 18:00
Sertraline HCl 100 mg 12/19/24 13:00 12/19/24 13:08
Sertraline 100 Mg Tablet PO 01/16/25 12:59 100 mg
DAILY ROB Administration
Sodium Chloride 0 flush 12/16/24 13:00
Sodium Chloride 0.9% (Flush) Syringe IV 01/13/25 12:59
PER PROTOCOL ROB
Sodium Chloride 10 ml 12/19/24 10:00 12/19/24 10:09
Sodium Chloride 0.9% (Preservative Free) 10 Ml Vial IV 01/16/25 09:59 10 ml
BID ROB Administration
Home Medications
�Medication �Instructions �Recorded
dicyclomine 20 mg tablet 20 mg PO DAILY Gastrointestinal 10/19/19
Issue
esomeprazole magnesium 20 mg 40 mg PO DAILYPRN PRN ged 10/19/19
capsule,delayed release (Nexium)
sertraline 100 mg tablet 100 mg PO DAILY Depression 10/19/19
albuterol sulfate 90 mcg/actuation 2 puff inhalation R Q4HPRN PRN 09/15/22
aerosol inhaler shortness of breath
amlodipine 10 mg tablet 10 mg PO DAILY Blood Pressure 09/15/22
aspirin 81 mg tablet,delayed 81 mg PO DAILY Blood Clot 09/15/22
release Prevention/Tx
metoprolol succinate 50 mg 50 mg PO DAILY Blood Pressure 09/15/22
tablet,extended release 24 hr
mirabegron 50 mg tablet,extended 50 mg PO DAILY Urinary Issue 09/15/22
release 24 hr (Myrbetriq)
ezetimibe 10 mg tablet 10 mg PO DAILY High Cholesterol 02/13/23
rosuvastatin 40 mg tablet 40 mg PO HS High Cholesterol 02/13/23
fluticasone furoate 200 1 inh inhalation R DAILY 02/13/24
mcg-vilanterol 25 mcg/dose Lung/Breathing Issues
inhalation powder (Breo Ellipta)
calcium carbonate 500 mg PO DAILY Supplement 12/16/24
cholecalciferol (vitamin D3) 10 10 mcg PO DAILY Supplement 12/16/24
mcg (400 unit) tablet (Vitamin D3)
evolocumab 140 mg/mL subcutaneous 140 mg SC Q2W High Cholesterol 12/16/24
pen injector (Darwin Coffman)
[2024-12-19] MEDS: NORVASC 5 MG PO (16:30)
--- NOTE | 2024-12-19 16:37 | CON.MD ---
Documented by User: Teena Cheema PA-C 12/19/24 18:25
Consultation - Medical
-
Referring Provider:�
Chief Complaint:�CVA
�
History of Present Illness:This is a 79-year-old female with PMH of (HTN, HLD, asthma, former smoker, migraine, osteoporosis, right subclavian artery stenosis, posterior intracranial stenosis TIA on aspirin 2019) who presented to the hospital on
12/16/24 with headache and right-sided weakness and paresthesias. Patient reported headache to have started the afternoon the day before with worsening of symptoms over the left eye accompanied by some blurry vision. She has a remote history of
migraines that presented in similar fashion about a year ago. She had a neurologic workup that was negative. She is on triptan for the migraines without relief. patient is followed by OP Neurology service for a TIA in 2019 and headaches.
Stroke workup including CT of the head with hypoattenuation within the posterior left parietal occipital lobe with suspicion for subacute infarct and subsequently had a CT perfusion scan and a CTA of the head and neck. She has evidence of occlusion
of the proximal left posterior cerebral artery and severe stenosis of the proximal right cerebral artery. She received tenecteplase.
MRI of the brain reveals -large confluent region of nonhemorrhagic acute/subacute infarction within the left temporooccipital lobe. Additional tiny acute/subacute left thalamic infarct.
Neurology initially recommended 3 weeks of dual antiplatelet with aspirin and Plavix.
Patient developed GI bleeding exacerbated by recent thrombolysis administration for acute stroke. Hemoglobin dropped from 15 on admission down to 7 .EGD completed 12/18- Shows diffuse esophageal ulcers with stigmata of recent bleeding. LA grade D
esophagitis with bleeding. Coffee-ground material in the gastric body. Duodenal erosions without bleeding. No specimens collected. Still with burgundy stools via rectal tube. Hemodynamically stable. Now on IV Protonix twice daily per GI.
Lovenox was DCed.
Hypotension/shock: Likely due to hypovolemia and GI bleed. Blood pressure recovered and now hypertensive. Did not require vasopressors. Patient with persistent nausea possibly due to acute upper GI bleed. On Bentyl and Zofran as needed,
Compazine, IV fluid for hydration and PPI.
Patient mentation waxing and waning. Patient sleepy and tired. Had transfusions. On puree diet and thin. No straws
Headache preceded stroke and thrombolytics but there was some concern of worsening so CT scan of the head was done post thrombolytics. CT shows no acute hemorrhage.
12/19/2024�follow-up neurology assessment. Patient does not have significant posterior intracranial atherosclerosis to suggest ICAD as a mechanism. At this time, they are recommending continuing her home aspirin 81 mg for secondary stroke
prevention to minimize risks and to encourage medication compliance. She will need further stroke workup to evaluate for other potential mechanism. She will need to follow-up outpatient with neurology and outpatient cardiac monitoring to evaluate
for A-fib
�
Past Medical History:�TIA with left-sided weakness and confusion 2019, syncope, HTN, HLD, asthma, osteoporosis, right subclavian artery stenosis, L ICA 50-70% stenosis, posterior intracranial stenosis.
Procedure History:�Bladder sling, ILR s/p removal, bladder sling/stimulator, b/l TKR.
Family History:�Mother- stroke.
�
Social History:�
Functional Level Premorbidly:�Independent with all activities�
Functional Level Currently:�Bed mobility�max assist, transfer-mod assist, grooming�set up, toileting, lower extremity care�dependent, speech�recommended pur�e, single sips thin diet with full supervision/assistance. ST to follow.
�
Tobacco: Former smoker
Alcohol:�Denies�
Drug use:�Denies�
�
Lives with:�Family-lives in in-law suite at daughter's home
24-hour assistance available:�
Number of floors:�One-story
# steps to enter:�0
# steps to second floor: None
Potential First floor set up:�Yes
Driving:�Yes
Occupation:�Retired
�
�
Allergies:�
Allergy/AdvReac Type Severity Reaction Status Date / Time
ibandronate sodium (From Allergy Nausea / Verified 12/16/24 08:50
Boniva) Vomiting
�
Review of Systems:�
Constitutional: (x)ab Normal _fatigue
Eye: (x) abNormal _right neglect?, right Hemianopsia
Ear/Nose/Throat: (x) Normal _
Respiratory: (x) Normal _
Cardiovascular: (x) Normal _
Gastrointestinal: (x) abNormal _GI bleed, anemia
Genitourinary: (x) Normal _
Musculoskeletal: (x) Normal _
Integumentary: (x) Normal _
Neurologic: (x) abNormal _stroke
Psychiatric: (x) Normal _
Endocrine: (x) Normal _
Hematologic/Lymphatic: (x) Normal _
Allergic/Immunologic: (x) Normal _
�
Medications:�
Active Current Visit Medication List
Category Date Time Status
0.9% Sodium Chloride [Nss (Preservative Free)] Med 12/19/24 10:00 Active
10 ml IV BID
Acetaminophen [Tylenol] Med 12/16/24 13:49 Active
650 mg PO Q4HPRN PRN
Albuterol [ProAIR HFA INHALER] Med 12/19/24 11:24 Active
2 puff INH R Q4HPRN PRN shortness of breath
Amlodipine [Norvasc] Med 12/19/24 16:00 Active
5 mg PO DAILY
Aspirin Chewable [Low Strength Aspirin] Med 12/17/24 18:00 Active
81 mg PO DAILY
Calcium Carbonate [Oscal Kamron 500] Med 12/20/24 08:00 Active
500 mg PO DAILY
Cholecalciferol (Vitamin D3) [VITAMIN D3 ( Med 12/20/24 08:00 Active
cholecalciferol)]
10 mcg PO DAILY
Dicyclomine [Bentyl] Med 12/20/24 08:00 Active
20 mg PO DAILY
Ezetimibe [Zetia] Med 12/17/24 17:00 Hold
10 mg PO DAILY
Flush (0.9% Sodium Chloride) [Flush (Nss)] Med 12/16/24 13:00 Active
See Dose Instructions IV PER PROTOCOL
Metoprolol Xl [Toprol Xl] Med 12/18/24 09:00 Active
25 mg PO DAILY
Ondansetron Injectable [Zofran] Med 12/16/24 15:00 Active
4 mg IV Q6HPRN PRN
Pantoprazole [Protonix IV] Med 12/19/24 08:00 Active
40 mg IV BID
Prochlorperazine [Compazine] Med 12/17/24 09:39 Active
10 mg IV Q6HPRN PRN
Ropinirole [Requip] Med 12/19/24 22:00 Active
0.25 mg PO HS
Rosuvastatin Calcium [Crestor] Med 12/17/24 22:00 Hold
40 mg PO HS
Sertraline HCl [Zoloft] Med 12/19/24 13:00 Active
100 mg PO DAILY
�
Vitals:�
Temp Pulse Resp BP Pulse Ox
98.2 F 100 26 171/70 96
12/19/24 15:06 12/19/24 16:30 12/19/24 14:00 12/19/24 16:30 12/19/24 14:00
Height 4 ft 11 in
Actual Weight 67.6 kg
Body Mass Index (BMI) 30.1
�
Physical Exam:�
General Appearance/Observation: Well-developed, well-nourished individual in no apparent distress.�Patinet intermittently opens eyes than closes
Pain/Comfort Assessment: Denies�
Mood/Affect: lethargic, kept eyes closed most of the time, except when asked to open them then closed them back
�
Integumentary/Operative Site:�
�� Pressure Ulcer Evaluation: absent over heels.�
�� Other Type of Wound: absent�
��
�
Eyes: Conjunctiva/Lids: normal���� Pupils: pupils equal round and reactive to light and Accommodation�: not assessed since wants to keep eyes closed
Ears/Nose/Throat: oral mucosa moist,� throat- not visualized.������������ Lips/Teeth/Gums: no teeth noted�
Neck: No muscle spasm or tenderness�
Cardiovascular: Heart: regular, no murmur�
Pulses: dorsalis pedis 2+ bilaterally�
Respiratory: Respiratory Effort/Chest Expansion: normal������� Auscultation: Clear to auscultation bilaterally�
Gastrointestinal: abdomen not tender, no distension, normal abdominal bowel sounds
Genitourinary: No Oropeza�
Extremities:�Edema: None�Cyanosis: None�Trophic�changes: None
�
Neurology Exam:
Orientation: sleepy, Oriented to self, Place�, not time
Memory: Intact for basic information
Comprehension: Impaired, needs cueing and repeating, sleepy
Two step command: Impaired, need extra time, repeating, sleepy
Naming: unable to assess, falls back to sleep
Cranial Nerves:
�� CNII:�Pupillary light reflex: Intact����Visual Field: Right field cut
�� CN III, IV, : Extraocular muscles: Impaired, not tracking to the right, ptosis on right
�� CN V:�Facial Sensation�at�Forehead: Intact,�Maxilla: Intact,�Mandible: Intact
�� CN VII:�Facial movement: weakness on right
�� CN VIII:�Hearing: Normal
�� CN IX/X:�Speech & swallow: low volume�Position of Uvula: Midline
�� CN XI:�Shoulder shrug: unable to assess
�� CN XII:�Tongue protrusion: deviated to the left
Sensory:
�� Light touch: Grossly Intact in bilateral upper and lower extremities
��
�
Reflexes:
�� Biceps: 2+ bilaterally
�� Brachioradialis: 2+ bilaterally
�� Triceps: 2+ bilaterally
�� Patellar: absent bilaterally
�� Achilles: absent bilaterally
�� Babinski: Down going bilaterally
�� Clonus: None
�� Doreen: Negative bilaterally�
Cerebellar: Dysmetria/Ataxia: unable to assess, patient sleepy
Musculoskeletal:
Motor: (Manual muscle scale 0-5)�
Muscle SA EF WE EE FF FA HF KE DF EHL PF
Right� 4 4 4 4 4 4 4 4 4 4 4
Left 5 5 5 5 5 5 5 5 5 5 5
�
Tone: Normal in all extremities�
Range of Motion: Passively within normal limits. diminished rom of right ankle. right great toe in hyperextension. arthritic changes in the fingers
�
Lab Results
Labs
WBC 21.2 10^3/uL (4.8-10.8) H 12/19/24 03:49
RBC 3.45 10^6/uL (4.20-5.40) L 12/19/24 03:49
Hgb 10.8 g/dL (12.0-16.0) L D 12/19/24 03:49
Hct 30.3 % (37.0-47.0) L 12/19/24 03:49
MCV 87.8 fL (81.0-99.0) 12/19/24 03:49
MCH 31.3 pg (27.0-31.0) H 12/19/24 03:49
MCHC 35.6 g/dL (33.0-37.0) 12/19/24 03:49
RDW 14.1 % (11.5-14.5) 12/19/24 03:49
Plt Count 168 10^3/uL (130-400) D 12/19/24 03:49
MPV 9.3 fL (7.4-10.4) 12/19/24 03:49
Abs Immat Gran (auto) 0.2 10^3/uL (0-0.05) H 12/19/24 03:49
Absolute Neuts (auto) 15.0 10^3/uL (1.4-6.5) H 12/19/24 03:49
Absolute Lymphs (auto) 3.9 10^3/uL (1.2-3.4) H 12/19/24 03:49
Absolute Monos (auto) 2.1 10^3/uL (0.1-0.6) H 12/19/24 03:49
Absolute Eos (auto) 0.0 10^3/uL (0-0.7) 12/19/24 03:49
Absolute Basos (auto) 0.0 10^3/uL (0-0.2) 12/19/24 03:49
CBC Comment 12/18/24 10:16
Immature Gran % 0.8 % (0-0.5) H 12/19/24 03:49
Neutrophils % 70.8 % (42.2-75.2) 12/19/24 03:49
Lymphocytes % 18.5 % (20.5-51.1) L 12/19/24 03:49
Monocytes % 9.7 % (1.7-9.3) H 12/19/24 03:49
Eosinophils % 0.0 % (0-6) 12/19/24 03:49
Basophils % 0.2 % (0-2) 12/19/24 03:49
Nucleated RBC % 0 % 12/19/24 03:49
ESR 28 mm/hour (0-20) H 12/18/24 10:16
PT 13.9 Sec (11.4-14.6) 12/19/24 03:49
INR 1.04 12/19/24 03:49
APTT 22.4 Sec (23.4-35.0) L 12/19/24 03:49
D-Dimer 2.44 ug/mlFEU (0.00-0.50) H 12/18/24 10:16
Sodium 137 mmol/L (135-145) 12/19/24 03:49
Potassium 3.6 mmol/L (3.5-5.1) 12/19/24 03:49
Chloride 112 mmol/L (98-107) H 12/19/24 03:49
Carbon Dioxide 21 mmol/L (22-30) L 12/19/24 03:49
BUN 20 mg/dl (7-17) H 12/19/24 03:49
Creatinine 0.5 mg/dL (0.6-1.0) L 12/19/24 03:49
Estimated Creat Clear 64 ml/min 12/19/24 03:49
eGFR > 60.00 12/19/24 03:49
Glucose 127 mg/dl (70-99) H 12/19/24 03:49
Hemoglobin A1c 5.9 % (4.0-5.9) 12/19/24 03:49
Calcium 7.6 mg/dl (8.4-10.2) L 12/19/24 03:49
Magnesium 2.0 mg/dl (1.6-2.3) 12/19/24 03:49
Total Bilirubin 0.5 mg/dl (0.2-1.3) 12/16/24 09:53
AST 34 U/L (14-36) 12/16/24 09:53
ALT 25 U/L (0-35) 12/16/24 09:53
Alkaline Phosphatase 132 U/L (38-126) H 12/16/24 09:53
Total Protein 8.0 g/dl (6.3-8.2) 12/16/24 09:53
Albumin 4.8 g/dl (3.5-5.0) 12/16/24 09:53
Triglycerides 122 mg/dl (10-149) 12/17/24 04:12
Total Cholesterol 153 mg/dl (50-199) 12/17/24 04:12
LDL Cholesterol, Calc 70 mg/dl 12/17/24 04:12
VLDL Cholesterol, Calc 24 mg/dl (0-30) 12/17/24 04:12
HDL Cholesterol 59 mg/dl 12/17/24 04:12
Urine Color Cancelled 12/18/24 15:53
Urine Color Yellow 12/18/24 15:53
Urine Clarity Cancelled 12/18/24 15:53
Urine Clarity Slightly cloudy (Clear) 12/18/24 15:53
Urine pH 6.0 (5.0-9.0) 12/18/24 15:53
Urine pH Cancelled 12/18/24 15:53
Ur Specific Letcher 1.015 (<1.030) 12/18/24 15:53
Ur Specific Letcher Cancelled 12/18/24 15:53
Urine Ketones Cancelled 12/18/24 15:53
Urine Ketones Negative (Negative) 12/18/24 15:53
Ur Occult Blood Reflex 1+ (Negative) A 12/18/24 15:53
Ur Occult Blood Reflex Cancelled 12/18/24 15:53
Urine Nitrite (Reflex) Cancelled 12/18/24 15:53
Urine Nitrite (Reflex) Negative (Negative) 12/18/24 15:53
Urine Bilirubin Cancelled 12/18/24 15:53
Urine Bilirubin Negative (Negative) 12/18/24 15:53
Urine Urobilinogen Cancelled 12/18/24 15:53
Urine Urobilinogen Negative (Neg - 1+) 12/18/24 15:53
Leukocyte Esterase Rfl 3+ (Negative) A 12/18/24 15:53
Leukocyte Esterase Rfl Cancelled 12/18/24 15:53
Urine RBC 0-2 /HPF (0-2) 12/18/24 15:53
Urine WBC (Reflex) 50-60 /HPF (0-5) A 12/18/24 15:53
Ur Squamous Epith Cells 6-10 /LPF (Few) 12/18/24 15:53
Ur Urothelial Cells 6-10 /LPF (FEW) 12/18/24 15:53
Urine Bacteria (Reflex) Many (Negative) A 12/18/24 15:53
Urine Glucose Cancelled 12/18/24 15:53
Urine Glucose Negative (Negative) 12/18/24 15:53
Urine Albumin (Reflex) 2+ (Neg - Trace) A 12/18/24 15:53
Urine Albumin (Reflex) Cancelled 12/18/24 15:53
POC Glucose 93 mg/dl (70-99) 12/16/24 14:04
Blood Type O POS 12/18/24 10:16
Blood Type Confirm O POS 12/18/24 17:02
Antibody Screen Negative (Negative) 12/18/24 10:16
Crossmatch IS Only See Detail 12/18/24 10:16
�
Diagnostic Results:�as per HPI�
Chest x-ray�12/18/2024
CLINICAL INDICATION: leukocytosis and vomiting
TECHNIQUE: Portable frontal semi-erect view of the chest.
COMPARISON: 12/16/2024.
FINDINGS:
Lines and tubes: None.
Lungs: The lungs are clear. No pleural effusion or pneumothorax.
Heart: The heart is mildly enlarged. There is severe aortic arch calcification
Osseous structures: Visualized osseous structures are within normal limits.
IMPRESSION:
Mild cardiomegaly. New.
No acute disease of the chest
CT head and neck angio with and without IV�12/17/2024
Occlusion of the proximal left posterior cerebral artery, unchanged. Severe stenosis of the proximal right cerebral artery, unchanged.
Large left temporal-occipital region infarct redemonstrated.
Small right pleural effusion, new from prior.
Severe circumferential wall thickening of the upper thoracic esophagus, new from prior and suggesting esophagitis.
MRI of brain�12/17/2024
Large confluent region of restricted diffusion throughout the left temporooccipital lobe spanning approximately 8.5 x 2.8 cm, consistent with acute/subacute infarct. No associated hemorrhage. There is associated hyperintense FLAIR signal suggesting
this is not hyperacute.
Additional tiny acute/subacute left thalamic infarct.
Axial FLAIR sequence otherwise demonstrates moderate hyperintensity within the periventricular and deep subcortical white matter, likely related to underlying chronic small vessel ischemic changes.
No abnormal parenchymal mass effect, midline shift, or extra-axial collection. No hydrocephalus.
The visualized paranasal sinuses and mastoid air cells are clear.
The vascular structures at the skull base are unremarkable.
IMPRESSION:
Large confluent region of nonhemorrhagic acute/subacute infarction within the left temporooccipital lobe.
Additional tiny acute/subacute left thalamic infarct.
CT of head�
No significant change in left posterior temporal-occipital infarct, which demonstrates low-attenuation white matter edema and mild compression of the adjacent cortex. No acute hemorrhage. Mild residual high attenuation is noted within the dural
venous structures related to intravenous contrast administered earlier the same day.
No other significant interval change. No herniation. No hydrocephalus.�
Assessment
�
Plan�
PM&R�PT/OT to increase independence with ADLs, improve balance, coordination, endurance, strength, mobility, community reintegration, decreased burden of care on others and family education.�
�
CVA: left temporooccipital lobe, small acute/subacute left thalamic infarct. Secondary prophylaxis with [id number] mg daily, statin, and blood pressure control (SBP less than 180 and diastolic less than 100 to participate with therapy for ischemic
stroke). Continue to monitor neurologic status.�will need outpatient cardiac monitoring to eval for afib
right dominant hemiparesis: High risk for falls and sliding out of chair/bed. Safety reinforced.�
- Avoid using affected arm to help lift or pull patient as this will cause trauma to the shoulder.
Right Neglect: makes patient at increased risk for falls.� Will need therapy to work on scanning of environment for safe navigation.�
Right Hemianopsia: Need help scanning the environment
Dysphagia: speech evaluation, oral care protocol, chlorhexidine rinse after meals and HS, aspiration precautions.� Advance diet as tolerated.�
Dysarthria: speech evaluation�
HTN/Hypotension/shock: Likely due to hypovolemia and GI bleed. Blood pressure recovered and now hypertensive. Did not require vasopressors. Resumed on amlodipine 5 mg daily, metoprolol succinate 25 mg daily
HLD:rosuvastatin. 40 mg bedtime, Zetia 10 mg daily
Anemia: Transfused 2 units of blood on 12/18. Hemoglobin improved 10.8 on 12/19..� Continue to monitor.��
Leukocytosis: Suspect leukemoid reaction. Afebrile.
Hypocalcemia: calcium carbonate 500 daily, vitamin D3 10 mcg daily
Psych/anxiety: Sertraline 100 mg daily.� Monitor mood, adjust medications as needed.�
Skin: monitor for pressure sores/rashes/lesions.�
Pain: acetaminophen as needed.�
Bowel: Colace and Senna, PRN bisacodyl.�
Bladder: Time void, PVRs, PRN straight cath.�
Persistent nausea: Bentyl 20 mg daily. Compazine 10 mg IV Q6 as needed gentle IV fluid hydration. On PPI
Acute upper GI bleed -exacerbated by recent thrombolysis administration for acute stroke. Transfused 2 units of blood in 12/18.
GI Prophylaxis: Pantoprazole�40 mg IV twice daily
DVT Prophylaxis: Mechanical. Lovenox on hold due to GI bleed. Please comment on chemoprophylaxis if any contraindication at discharge.
Pulmonary: Incentive spirometry�
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 Body habitus and increased force to move body and extremities causes further difficulty with functional tasks.�
Safety: Continue to reinforce assistance with all transfers.�
Code Status:� Full code
Dispo�(date/plan/equipment needs): Home with family care.� Social history reviewed.�
�
Functional and Medical Goals:�Modified Independent with ADL�s, ambulation, transfers�
�
�
Discharge Destination:�Patient would benefit from acute inpatient rehab once hemoglobin has been stable, WBCs trending down, medically stable and cleared.
�
CVA: left temporooccipital lobe, small acute/subacute left thalamic infarct. Secondary prophylaxis with [id number] mg daily, statin, and blood pressure control (SBP less than 180 and diastolic less than 100 to participate with therapy for ischemic
stroke). Continue to monitor neurologic status.�will need outpatient cardiac monitoring to eval for a-fib
-�DVT Prophylaxis: Mechanical. Lovenox on hold due to GI bleed. Please comment on chemoprophylaxis if any contraindication at discharge.
�
Thank you for allowing me to care for your patient. Please contact me with any questions or concerns.
Consultation
-
Date/Time Consultation Requested: 12/16/24
Date/Time Consultation Performed: 12/19/24- do not see on weekend
Requesting Provider: Alesia
Performing Provider: Teena Cheema/Dr. Torre
Reason for Consultation: CVA

Documented by User: Vinh Torre MD 12/19/24 19:38
Consultation - Medical
-
Chief Complaint:�CVA
�
History of Present Illness:This is a 79-year-old female with PMH of (HTN, HLD, asthma, former smoker, migraine, osteoporosis, right subclavian artery stenosis, posterior intracranial stenosis TIA on aspirin 2019) who presented to the hospital on
12/16/24 with headache and right-sided weakness and paresthesias. Patient reported headache to have started the afternoon the day before with worsening of symptoms over the left eye accompanied by some blurry vision. She has a remote history of
migraines that presented in similar fashion about a year ago. She had a neurologic workup that was negative. She is on triptan for the migraines without relief. patient is followed by OP Neurology service for a TIA in 2019 and headaches.
Stroke workup including CT of the head with hypoattenuation within the posterior left parietal occipital lobe with suspicion for subacute infarct and subsequently had a CT perfusion scan and a CTA of the head and neck. She has evidence of occlusion
of the proximal left posterior cerebral artery and severe stenosis of the proximal right cerebral artery. She received tenecteplase.
MRI of the brain reveals -large confluent region of nonhemorrhagic acute/subacute infarction within the left temporooccipital lobe. Additional tiny acute/subacute left thalamic infarct.
Neurology initially recommended 3 weeks of dual antiplatelet with aspirin and Plavix.
Patient developed GI bleeding exacerbated by recent thrombolysis administration for acute stroke. Hemoglobin dropped from 15 on admission down to 7 .EGD completed 12/18- Shows diffuse esophageal ulcers with stigmata of recent bleeding. LA grade D
esophagitis with bleeding. Coffee-ground material in the gastric body. Duodenal erosions without bleeding. No specimens collected. Still with burgundy stools via rectal tube. Hemodynamically stable. Now on IV Protonix twice daily per GI.
Lovenox was DCed.
Hypotension/shock: Likely due to hypovolemia and GI bleed. Blood pressure recovered and now hypertensive. Did not require vasopressors. Patient with persistent nausea possibly due to acute upper GI bleed. On Bentyl and Zofran as needed,
Compazine, IV fluid for hydration and PPI.
Patient mentation waxing and waning. Patient sleepy and tired. Had transfusions. On puree diet and thin. No straws
Headache preceded stroke and thrombolytics but there was some concern of worsening so CT scan of the head was done post thrombolytics. CT shows no acute hemorrhage.
12/19/2024�follow-up neurology assessment. Patient does not have significant posterior intracranial atherosclerosis to suggest ICAD as a mechanism. At this time, they are recommending continuing her home aspirin 81 mg for secondary stroke
prevention to minimize risks and to encourage medication compliance. She will need further stroke workup to evaluate for other potential mechanism. She will need to follow-up outpatient with neurology and outpatient cardiac monitoring to evaluate
for A-fib
�
Past Medical History:�TIA with left-sided weakness and confusion 2019, syncope, HTN, HLD, asthma, osteoporosis, right subclavian artery stenosis, L ICA 50-70% stenosis, posterior intracranial stenosis.
Procedure History:�Bladder sling, ILR s/p removal, bladder sling/stimulator, b/l TKR.
Family History:�Mother- stroke.
�
Social History:�
Functional Level Premorbidly:�Independent with all activities�
Functional Level Currently:�Bed mobility�max assist, transfer-mod assist, grooming�set up, toileting, lower extremity care�dependent, speech�recommended pur�e, single sips thin diet with full supervision/assistance. ST to follow.
�
Tobacco: Former smoker
Alcohol:�Denies�
Drug use:�Denies�
�
Lives with:�Family-lives in in-law suite at daughter's home
24-hour assistance available:�
Number of floors:�One-story
# steps to enter:�0
# steps to second floor: None
Potential First floor set up:�Yes
Driving:�Yes
Occupation:�Retired
�
�
Allergies:�
Allergy/AdvReac Type Severity Reaction Status Date / Time
ibandronate sodium (From Allergy Nausea / Verified 12/16/24 08:50
Boniva) Vomiting
�
Review of Systems:�
Constitutional: (x)ab Normal _fatigue
Eye: (x) abNormal _right neglect?, right Hemianopsia
Ear/Nose/Throat: (x) Normal _
Respiratory: (x) Normal _
Cardiovascular: (x) Normal _
Gastrointestinal: (x) abNormal _GI bleed, anemia
Genitourinary: (x) Normal _
Musculoskeletal: (x) Normal _
Integumentary: (x) Normal _
Neurologic: (x) abNormal _stroke
Psychiatric: (x) Normal _
Endocrine: (x) Normal _
Hematologic/Lymphatic: (x) Normal _
Allergic/Immunologic: (x) Normal _
�
Medications:�
Active Current Visit Medication List
Category Date Time Status
0.9% Sodium Chloride [Nss (Preservative Free)] Med 12/19/24 10:00 Active
10 ml IV BID
Acetaminophen [Tylenol] Med 12/16/24 13:49 Active
650 mg PO Q4HPRN PRN
Albuterol [ProAIR HFA INHALER] Med 12/19/24 11:24 Active
2 puff INH R Q4HPRN PRN shortness of breath
Amlodipine [Norvasc] Med 12/19/24 16:00 Active
5 mg PO DAILY
Aspirin Chewable [Low Strength Aspirin] Med 12/17/24 18:00 Active
81 mg PO DAILY
Calcium Carbonate [Oscal Kamron 500] Med 12/20/24 08:00 Active
500 mg PO DAILY
Cholecalciferol (Vitamin D3) [VITAMIN D3 ( Med 12/20/24 08:00 Active
cholecalciferol)]
10 mcg PO DAILY
Dicyclomine [Bentyl] Med 12/20/24 08:00 Active
20 mg PO DAILY
Ezetimibe [Zetia] Med 12/17/24 17:00 Hold
10 mg PO DAILY
Flush (0.9% Sodium Chloride) [Flush (Nss)] Med 12/16/24 13:00 Active
See Dose Instructions IV PER PROTOCOL
Metoprolol Xl [Toprol Xl] Med 12/18/24 09:00 Active
25 mg PO DAILY
Ondansetron Injectable [Zofran] Med 12/16/24 15:00 Active
4 mg IV Q6HPRN PRN
Pantoprazole [Protonix IV] Med 12/19/24 08:00 Active
40 mg IV BID
Prochlorperazine [Compazine] Med 12/17/24 09:39 Active
10 mg IV Q6HPRN PRN
Ropinirole [Requip] Med 12/19/24 22:00 Active
0.25 mg PO HS
Rosuvastatin Calcium [Crestor] Med 12/17/24 22:00 Hold
40 mg PO HS
Sertraline HCl [Zoloft] Med 12/19/24 13:00 Active
100 mg PO DAILY
�
Vitals:�
Temp Pulse Resp BP Pulse Ox
98.2 F 100 26 171/70 96
12/19/24 15:06 12/19/24 16:30 12/19/24 14:00 12/19/24 16:30 12/19/24 14:00
Height 4 ft 11 in
Actual Weight 67.6 kg
Body Mass Index (BMI) 30.1
�
Physical Exam:�
General Appearance/Observation: Well-developed, well-nourished individual in no apparent distress.�Patinet intermittently opens eyes than closes
Pain/Comfort Assessment: Denies�
Mood/Affect: lethargic, kept eyes closed most of the time, except when asked to open them then closed them back
�
Integumentary/Operative Site:�
�� Pressure Ulcer Evaluation: absent over heels.�
�
Eyes: Conjunctiva/Lids: normal���� Pupils: pupils equal round and reactive to light and Accommodation
Ears/Nose/Throat: oral mucosa dry,� throat- not visualized.������������ Lips/Teeth/Gums: Edentulous
Neck: No muscle spasm or tenderness�
Cardiovascular: Heart: regular, no murmur�
Pulses: dorsalis pedis 2+ bilaterally�
Respiratory: Respiratory Effort/Chest Expansion: normal������� Auscultation: Clear to auscultation bilaterally�
Gastrointestinal: abdomen not tender, no distension, normal abdominal bowel sounds. Rectal tube with blood-tinged stool.
Genitourinary: No Oropeza�
Extremities:�Edema: None�Cyanosis: None�Trophic�changes: None
�
Neurology Exam:
Orientation: sleepy, Oriented to self, Place�, not time
Memory: Intact for basic information
Comprehension: Impaired, needs cueing and repeating, sleepy
Two step command: Impaired, need extra time, repeating, sleepy
Naming: unable to assess, falls back to sleep
Cranial Nerves:
�� CNII:�Pupillary light reflex: Intact����Visual Field: Right field cut
�� CN III, IV, : Extraocular muscles: Impaired, not tracking to the right, ptosis on right
�� CN V:�Facial Sensation�at�Forehead: Intact,�Maxilla: Intact,�Mandible: Intact
�� CN VII:�Facial movement: weakness on right
�� CN VIII:�Hearing: Normal
�� CN IX/X:�Speech & swallow: low volume�Position of Uvula: Midline
�� CN XI:�Shoulder shrug: unable to assess
�� CN XII:�Tongue protrusion: deviated to the left
Sensory:
�� Light touch: Grossly Intact in bilateral upper and lower extremities
��
�
Reflexes:
�� Biceps: 2+ bilaterally
�� Brachioradialis: 2+ bilaterally
�� Triceps: 2+ bilaterally
�� Patellar: absent bilaterally
�� Achilles: absent bilaterally
�� Babinski: Down going bilaterally
�� Clonus: None
�� Doreen: Negative bilaterally�
Cerebellar: Dysmetria/Ataxia: unable to assess, patient sleepy
Musculoskeletal: Motor: (Manual muscle scale 0-5)�
Muscle SA EF WE EE FF FA HF KE DF EHL PF
Right� 4 4 4 4 4 4 4 4 4 4 4
Left 5 5 5 5 5 5 5 5 5 5 5
�
Tone: Normal in all extremities�
Range of Motion: Passively within normal limits. diminished rom of right ankle. right great toe in hyperextension. arthritic changes in the fingers
�
Lab Results
Labs
WBC 21.2 10^3/uL (4.8-10.8) H 12/19/24 03:49
RBC 3.45 10^6/uL (4.20-5.40) L 12/19/24 03:49
Hgb 10.8 g/dL (12.0-16.0) L D 12/19/24 03:49
Hct 30.3 % (37.0-47.0) L 12/19/24 03:49
MCV 87.8 fL (81.0-99.0) 12/19/24 03:49
MCH 31.3 pg (27.0-31.0) H 12/19/24 03:49
MCHC 35.6 g/dL (33.0-37.0) 12/19/24 03:49
RDW 14.1 % (11.5-14.5) 12/19/24 03:49
Plt Count 168 10^3/uL (130-400) D 12/19/24 03:49
MPV 9.3 fL (7.4-10.4) 12/19/24 03:49
Abs Immat Gran (auto) 0.2 10^3/uL (0-0.05) H 12/19/24 03:49
Absolute Neuts (auto) 15.0 10^3/uL (1.4-6.5) H 12/19/24 03:49
Absolute Lymphs (auto) 3.9 10^3/uL (1.2-3.4) H 12/19/24 03:49
Absolute Monos (auto) 2.1 10^3/uL (0.1-0.6) H 12/19/24 03:49
Absolute Eos (auto) 0.0 10^3/uL (0-0.7) 12/19/24 03:49
Absolute Basos (auto) 0.0 10^3/uL (0-0.2) 12/19/24 03:49
CBC Comment 12/18/24 10:16
Immature Gran % 0.8 % (0-0.5) H 12/19/24 03:49
Neutrophils % 70.8 % (42.2-75.2) 12/19/24 03:49
Lymphocytes % 18.5 % (20.5-51.1) L 12/19/24 03:49
Monocytes % 9.7 % (1.7-9.3) H 12/19/24 03:49
Eosinophils % 0.0 % (0-6) 12/19/24 03:49
Basophils % 0.2 % (0-2) 12/19/24 03:49
Nucleated RBC % 0 % 12/19/24 03:49
ESR 28 mm/hour (0-20) H 12/18/24 10:16
PT 13.9 Sec (11.4-14.6) 12/19/24 03:49
INR 1.04 12/19/24 03:49
APTT 22.4 Sec (23.4-35.0) L 12/19/24 03:49
D-Dimer 2.44 ug/mlFEU (0.00-0.50) H 12/18/24 10:16
Sodium 137 mmol/L (135-145) 12/19/24 03:49
Potassium 3.6 mmol/L (3.5-5.1) 12/19/24 03:49
Chloride 112 mmol/L (98-107) H 12/19/24 03:49
Carbon Dioxide 21 mmol/L (22-30) L 12/19/24 03:49
BUN 20 mg/dl (7-17) H 12/19/24 03:49
Creatinine 0.5 mg/dL (0.6-1.0) L 12/19/24 03:49
Estimated Creat Clear 64 ml/min 12/19/24 03:49
eGFR > 60.00 12/19/24 03:49
Glucose 127 mg/dl (70-99) H 12/19/24 03:49
Hemoglobin A1c 5.9 % (4.0-5.9) 12/19/24 03:49
Calcium 7.6 mg/dl (8.4-10.2) L 12/19/24 03:49
Magnesium 2.0 mg/dl (1.6-2.3) 12/19/24 03:49
Total Bilirubin 0.5 mg/dl (0.2-1.3) 12/16/24 09:53
AST 34 U/L (14-36) 12/16/24 09:53
ALT 25 U/L (0-35) 12/16/24 09:53
Alkaline Phosphatase 132 U/L (38-126) H 12/16/24 09:53
Total Protein 8.0 g/dl (6.3-8.2) 12/16/24 09:53
Albumin 4.8 g/dl (3.5-5.0) 12/16/24 09:53
Triglycerides 122 mg/dl (10-149) 12/17/24 04:12
Total Cholesterol 153 mg/dl (50-199) 12/17/24 04:12
LDL Cholesterol, Calc 70 mg/dl 12/17/24 04:12
VLDL Cholesterol, Calc 24 mg/dl (0-30) 12/17/24 04:12
HDL Cholesterol 59 mg/dl 12/17/24 04:12
Urine Color Cancelled 12/18/24 15:53
Urine Color Yellow 12/18/24 15:53
Urine Clarity Cancelled 12/18/24 15:53
Urine Clarity Slightly cloudy (Clear) 12/18/24 15:53
Urine pH 6.0 (5.0-9.0) 12/18/24 15:53
Urine pH Cancelled 12/18/24 15:53
Ur Specific Letcher 1.015 (<1.030) 12/18/24 15:53
Ur Specific Letcher Cancelled 12/18/24 15:53
Urine Ketones Cancelled 12/18/24 15:53
Urine Ketones Negative (Negative) 12/18/24 15:53
Ur Occult Blood Reflex 1+ (Negative) A 12/18/24 15:53
Ur Occult Blood Reflex Cancelled 12/18/24 15:53
Urine Nitrite (Reflex) Cancelled 12/18/24 15:53
Urine Nitrite (Reflex) Negative (Negative) 12/18/24 15:53
Urine Bilirubin Cancelled 12/18/24 15:53
Urine Bilirubin Negative (Negative) 12/18/24 15:53
Urine Urobilinogen Cancelled 12/18/24 15:53
Urine Urobilinogen Negative (Neg - 1+) 12/18/24 15:53
Leukocyte Esterase Rfl 3+ (Negative) A 12/18/24 15:53
Leukocyte Esterase Rfl Cancelled 12/18/24 15:53
Urine RBC 0-2 /HPF (0-2) 12/18/24 15:53
Urine WBC (Reflex) 50-60 /HPF (0-5) A 12/18/24 15:53
Ur Squamous Epith Cells 6-10 /LPF (Few) 12/18/24 15:53
Ur Urothelial Cells 6-10 /LPF (FEW) 12/18/24 15:53
Urine Bacteria (Reflex) Many (Negative) A 12/18/24 15:53
Urine Glucose Cancelled 12/18/24 15:53
Urine Glucose Negative (Negative) 12/18/24 15:53
Urine Albumin (Reflex) 2+ (Neg - Trace) A 12/18/24 15:53
Urine Albumin (Reflex) Cancelled 12/18/24 15:53
POC Glucose 93 mg/dl (70-99) 12/16/24 14:04
Blood Type O POS 12/18/24 10:16
Blood Type Confirm O POS 12/18/24 17:02
Antibody Screen Negative (Negative) 12/18/24 10:16
Crossmatch IS Only See Detail 12/18/24 10:16
�
Diagnostic Results:�as per HPI�
Chest x-ray�12/18/2024
CLINICAL INDICATION: leukocytosis and vomiting
TECHNIQUE: Portable frontal semi-erect view of the chest.
COMPARISON: 12/16/2024.
FINDINGS:
Lines and tubes: None.
Lungs: The lungs are clear. No pleural effusion or pneumothorax.
Heart: The heart is mildly enlarged. There is severe aortic arch calcification
Osseous structures: Visualized osseous structures are within normal limits.
IMPRESSION:
Mild cardiomegaly. New.
No acute disease of the chest
CT head and neck angio with and without IV�12/17/2024
Occlusion of the proximal left posterior cerebral artery, unchanged. Severe stenosis of the proximal right cerebral artery, unchanged.
Large left temporal-occipital region infarct redemonstrated.
Small right pleural effusion, new from prior.
Severe circumferential wall thickening of the upper thoracic esophagus, new from prior and suggesting esophagitis.
MRI of brain�12/17/2024
Large confluent region of restricted diffusion throughout the left temporooccipital lobe spanning approximately 8.5 x 2.8 cm, consistent with acute/subacute infarct. No associated hemorrhage. There is associated hyperintense FLAIR signal suggesting
this is not hyperacute.
Additional tiny acute/subacute left thalamic infarct.
Axial FLAIR sequence otherwise demonstrates moderate hyperintensity within the periventricular and deep subcortical white matter, likely related to underlying chronic small vessel ischemic changes.
No abnormal parenchymal mass effect, midline shift, or extra-axial collection. No hydrocephalus.
The visualized paranasal sinuses and mastoid air cells are clear.
The vascular structures at the skull base are unremarkable.
IMPRESSION:
Large confluent region of nonhemorrhagic acute/subacute infarction within the left temporooccipital lobe.
Additional tiny acute/subacute left thalamic infarct.
CT of head�
No significant change in left posterior temporal-occipital infarct, which demonstrates low-attenuation white matter edema and mild compression of the adjacent cortex. No acute hemorrhage. Mild residual high attenuation is noted within the dural
venous structures related to intravenous contrast administered earlier the same day.
No other significant interval change. No herniation. No hydrocephalus.�
Assessment
79 y/o F PMH (HTN, HLD, asthma, former smoker, migraine, osteoporosis, right subclavian artery stenosis, posterior intracranial stenosis TIA on aspirin 2019) with 12/16/24 MOORE and right hemiparesis/paresthesias s/p tenecteplase with MRI noting large
confluent region of nonhemorrhagic acute/subacute infarction within the left temporooccipital lobe and tiny acute/subacute left thalamic infarcts, initially recommended 3 weeks of dual antiplatelet with aspirin and Plavix but hospital stay
complicated by significant GI bleeding with hemoglobin dropped from 15-7 requiring transfusion with EGD noting esophageal ulcers and duodenal erosions with all anticoagulants held and hypotension/shock from hypovolemia thought to be from GI bleed
resulting in ADL and ambulatory dysfunction.
Plan�
PM&R�PT/OT to increase independence with ADLs, improve balance, coordination, endurance, strength, mobility, community reintegration, decreased burden of care on others and family education.�
�
CVA: left temporooccipital lobe, small acute/subacute left thalamic infarct. Secondary prophylaxis with aspirin 81 mg daily for now which GI bleed, statin, and blood pressure control (SBP less than 180 and diastolic less than 100 to participate with
therapy for ischemic stroke). Continue to monitor neurologic status.�will need outpatient cardiac monitoring to eval for afib
right dominant hemiparesis: High risk for falls and sliding out of chair/bed. Safety reinforced.�
- Avoid using affected arm to help lift or pull patient as this will cause trauma to the shoulder.
Right Neglect: makes patient at increased risk for falls.� Will need therapy to work on scanning of environment for safe navigation.�
Right Hemianopsia: Need help scanning the environment
Dysphagia: speech evaluation, oral care protocol, chlorhexidine rinse after meals and HS, aspiration precautions.� Advance diet as tolerated.�
Dysarthria: speech evaluation�
HTN/Hypotension/shock: Likely due to hypovolemia and GI bleed. Blood pressure recovered and now hypertensive. Did not require vasopressors. Resumed on amlodipine 5 mg daily, metoprolol succinate 25 mg daily
HLD:rosuvastatin. 40 mg bedtime, Zetia 10 mg daily
Anemia: Transfused 2 units of blood on 12/18. Hemoglobin improved 10.8 on 12/19..� Continue to monitor.��
Leukocytosis: Suspect leukemoid reaction. Afebrile.
Hypocalcemia: calcium carbonate 500 daily, vitamin D3 10 mcg daily
Psych/anxiety: Sertraline 100 mg daily.� Monitor mood, adjust medications as needed.�
Skin: monitor for pressure sores/rashes/lesions.�
Pain: acetaminophen as needed.�
Bowel: Has rectal tube with blood in stool.
Bladder: Time void, PVRs, PRN straight cath.�
Persistent nausea: Bentyl 20 mg daily. Compazine 10 mg IV Q6 as needed gentle IV fluid hydration. On PPI
Acute upper GI bleed -exacerbated by recent thrombolysis administration for acute stroke. Transfused 2 units of blood in 12/18.
GI Prophylaxis: Pantoprazole�40 mg IV twice daily
DVT Prophylaxis: Mechanical. Lovenox on hold due to GI bleed. Please comment on chemoprophylaxis if any contraindication at discharge.
Pulmonary: Incentive spirometry�
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 Body habitus and increased force to move body and extremities causes further difficulty with functional tasks.�
Safety: Continue to reinforce assistance with all transfers.�
Code Status:� Full code
Dispo�(date/plan/equipment needs): Home with family care.� Social history reviewed.�
Functional and Medical Goals:�Modified Independent with ADL�s, ambulation, transfers�
Discharge Destination:�Patient would benefit from acute inpatient rehab once hemoglobin has been stable, WBCs trending down, medically stable and cleared.
Attending Statement:
I saw and examined the patient today. Reviewed care plan with patient, therapy, nursing, and physician assistant farm operations manager. I agree with the above subjective and physical exam, and plan as documented by HARSHIL Cheema with adjustments made as necessary. A
total of 60 minutes were spent with the patient preparing for the evaluation, obtaining history, performing examination and evaluation, counseling, data review, case management, care coordination, film replacement orderer, and EMR documentation.
�
SUMMARY OF RECOMMENDATIONS:
Discharge Destination:�Patient would benefit from acute inpatient rehab once hemoglobin has been stable, WBCs trending down, medically stable and cleared.
CVA: Secondary prophylaxis with [id number] mg daily, statin, and BP control (SBP less than 180 and diastolic less than 100 to participate with therapy for ischemic stroke). Continue to monitor neurologic status.�will need outpatient cardiac
monitoring to eval for a-fib
Acute upper GI bleed - continues to have blood in stool, hemoglobin will need to be stable prior to transfer to rehab
-�DVT Prophylaxis: Mechanical. Lovenox on hold due to GI bleed. Please comment on chemoprophylaxis if any contraindication at discharge.
�
Thank you for allowing me to care for your patient. Please contact me with any questions or concerns.
Consultation
-
Requesting Provider: Dr. Dumas
[2024-12-19] MEDS: REQUIP 0.25 MG PO (19:53)
[2024-12-19] MEDS: CRESTOR 40 MG PO (19:53)
[2024-12-20] VITALS (13 sets, daily range): BP systolic 103–167; BP diastolic 44–86; PULSE 84–110; O2SAT 91–97; BMI 30.4
[2024-12-20] MEDS: BenGay-Like 1 APPLIC TOPICAL ×5 (00:13→20:19)
--- NOTE | 2024-12-20 01:05 | PTCARENOTE ---
Patient awakens to verbal stimuli, and is oriented to person and place. Confusion noted. Mentation noted to be back and forth throughout shift being more alert at times. NIH 5. Patient c/o pain to b/l le at start of shift. Requip administered per
order, patient continued to c/o pain. CRATE OPENER notified, new order noted for Bengay. Upon receiving Bengay, patient asleep, applied when patient awoke a little while later. Patient NSR at this time, positive pulses. Lungs diminished throughout, pox
92-97% on ra. BS active x4, patient continues to have liquid burgundy bm to rectal trumpet. Skin intact. Purewick remains inplace. Bed alarm on, will continue to monitor patient closely.
[2024-12-20] MEDS: TYLENOL 650 MG PO (03:27)
[2024-12-20 03:56] LABS: Hematocrit 27.4 % (37.0-47.0); Hemoglobin 9.7 g/dL (12.0-16.0); Mean Corp Hgb Conc. 35.4 g/dL (33.0-37.0); Mean Corpuscular Volume 85.4 fL (81.0-99.0); Nucleated Red Blood Cells % 0 %; Platelet Count 194 10^3/uL (130-400); Red Cell Dist. Width 13.9 % (11.5-14.5)
--- NOTE | 2024-12-20 07:40 | W.PN.HOSP.TC ---
Addendum entered and electronically signed by Delfino Yadav DO 12/20/24 10:37:
Urinalysis sent for unclear reasons on December 18 shows pyuria. Urine culture shows gram-negative bacilli.
She has no urinary tract infection symptoms.
Therefore these findings are consistent with asymptomatic pyuria, asymptomatic bacteriuria.
No clear indication for antibiotics currently.
Original Note:
Today's Communication/Plan
-
Discharge planning
Assessment / Plan
Assessment / Plan
Gen-awake, NAD
HEENT-NC, AT, anicteric, clear oral mm
Neck-supple
CV-reg, no M, +S1/S2
Lungs-clear B/L
Abd-soft, NT, ND
Ext-no edema
Musculoskeletal-no cyanosis, clubbing
Skin-warm and dry
Neuro-weak right lower extremity greater than right upper extremity
Psych-calm, cooperative
Acute upper GI bleed -GI bleed exacerbated by recent thrombolysis administration for acute stroke.
EGD completed 12/18. Shows diffuse esophageal ulcers with stigmata of recent bleeding. LA grade D esophagitis with bleeding. Coffee-ground material in the gastric body. Duodenal erosions without bleeding. No specimens collected.
Still with burgundy stools via rectal tube. Hemodynamically stable.
Now on IV Protonix twice daily per GI.
Acute blood loss anemia -due to acute GI bleed. Transfused 2 units of blood in 12/18. Hemoglobin relatively stable, 9.7 today.
Hypotension/shock: Likely due to hypovolemia and GI bleed. Blood pressure recovered and now hypertensive. Did not require vasopressors. Shock resolved.
Acute stroke with right hemiparesis, right homonymous hemianopsia: Involving left temporooccipital lobe. Additional tiny acute/subacute left thalamic infarct.
Status post TNK
Continue aspirin. Neurology recommends outpatient cardiac monitoring on discharge.
Echocardiogram shows LVEF 67%. No significant changes compared to August 2020 study. Mild septal hypertrophy with septum measuring 1.1 cm. Mild to moderate mitral regurgitation. Mild to moderate TR.
Acute dysphagia -due to stroke. Speech therapy recommends pur�ed diet, single sips thins. Full assistance with meals.
Persistent nausea: Possibly related to acute upper GI bleed. Resolved.
Headache:
Headache preceded stroke and thrombolytics but there was some concern of worsening so CT scan of the head was done post thrombolytics. CT shows no acute hemorrhage.
Pain control continue to monitor
Leukocytosis: Suspect leukemoid reaction. Afebrile. Doubt infection.
Essential hypertension: Blood pressure overall improving. Continue amlodipine, Toprol XL. Can slowly titrate up doses.
Hyperlipidemia:
Continue rosuvastatin, Zetia.
Possible RLS -ropinirole started.
DVT prophylaxis:
SCDs
Hold Lovenox due to GI bleed.
Full code
Dispo -stable for discharge to [place] rehab. Telemetry orders placed 12/19.
Anticipated Discharge: Within 24 hours
Subjective/Interval History
-
Date of Service: December 20, 2024
Patient seen and examined. No new complaints. Slept well.
Objective Data
-
Labs:
Laboratory Results
12/20/24
03:43
WBC 17.5 H
Hgb 9.7 L
Hct 27.4 L
Plt Count 194
Vital Signs:
Vital Signs
Temp Pulse Resp BP Pulse Ox
98.2 F 101 19 150/55 92
12/20/24 04:11 12/20/24 07:00 12/20/24 07:00 12/20/24 06:00 12/20/24 07:00
I&O
12/19/24 12/20/24 12/21/24
06:59 06:59 06:59
Intake Total 3620 / 3777.5 1980.0 / 1980.0
Output Total 1100 / 1100 850 / 850
Balance 2520 / 2677.5 1130.0 / 1130.0
Review of Systems
-
History Source: Patient
All other systems: Reviewed and negative
[2024-12-20] MEDS: NSS (PRESERVATIVE FREE) 10 ML IV ×2 (08:21→20:19)
[2024-12-20] MEDS: NORVASC 5 MG PO (08:22)
[2024-12-20] MEDS: ZOLOFT 100 MG PO (08:22)
[2024-12-20] MEDS: BENTYL 20 MG PO (08:22)
[2024-12-20] MEDS: VITAMIN D3 (cholecalciferol) 10 MCG PO (08:22)
[2024-12-20] MEDS: TOPROL XL 25 MG PO (08:22)
[2024-12-20] MEDS: PROTONIX IV 40 MG IV ×2 (08:22→20:19)
[2024-12-20] MEDS: OSCAL CAL 500 500 MG PO (08:22)
[2024-12-20] MEDS: LOW STRENGTH ASPIRIN 81 MG PO (08:22)
--- NOTE | 2024-12-20 10:00 | PTCARENOTE ---
Patient awaiting telemetry bed at this time. NIH 5, neurological status waxes and wanes from time to time. Full assessment documented in shift assessment on worklist. Frequently repositions self in bed, skin intact. As patient is restless and moves
side to side frequently, removed both Purewick and rectal trumpet.
--- NOTE | 2024-12-20 13:03 | CON.ID ---
Consultation
-
Date/Time Consultation Requested: 12/20/2024 1239
Date/Time Consultation Performed: 12/20/2024 1300
Requesting Provider: Dr. Yadav
Performing Provider: Dr. Soriano
Reason for Consultation: Leukocytosis; bacteriuria
Chief Complaint / Past History
History of Present Illness
Amber Ta is a 79-year-old female being evaluated at the request of Dr. Yadav in regards to bacteriuria and leukocytosis. History is obtained from chart review, along with patient interview.
Patient has a significant past medical history of prior TIA and presented to the emergency room at [facility] on 12/16/2024 for evaluation of headache. She had noted headache beginning 1 day prior and it was noted to be gradually worsening.
It was described over the left eye with some blurred vision and she also developed some numbness in the right upper and lower extremities. Family accompanied her to the ER and noted that she appeared confused.
Workup in the ER included CT imaging which suggested acute ischemic stroke. The patient received tenecteplase. Hospital course has been thus far been significant for the development of GI bleed. On 12/18 a urinalysis with reflex to culture was
performed for unclear reasons. Patient was found to have pyuria and cultures have now revealed the presence of gram-negative rods. Infectious Diseases is asked to comment on further workup and antibiotic management.
At present, the patient denies any fevers or chills. She denies any cough. She denies any abdominal pain, nausea or vomiting. She denies any dysuria.
Past History
Additional Past Medical History:
Asthma
HTN
HLD
TIA
PVD
Obesity
Additional Past Surgical History:
Bilateral total knee replacement
Bladder sling
ILR s/p removal
Bladder stimulator
Allergy History:
ibandronate sodium (From Boniva) Allergy (Verified 12/16/24 08:50)
Nausea / Vomiting
Medications Reviewed: Yes
Current Antibiotics:
None.
Social History
Tobacco: Non-Smoker
Alcohol: None
Drug: None
Employment: Retired
Family History
Family History: Not Pertinent
Review of Systems
Vital Signs
Temp Pulse Resp BP Pulse Ox
98.8 F 76 16 138/49 91
12/20/24 11:42 12/20/24 12:00 12/20/24 12:00 12/20/24 12:00 12/20/24 12:00
Physical Exam
Physical Exam
Constitutional: No Acute Distress, Comfortable, Chronically Ill and Non-toxic
Eyes: Pupils Equal, Pupils Round, No Conjunctival Hemorrhage and Sclera Anicteric
Oral: No Thrush and No Ulcers
Cardiovascular: S1/S2; Negative S3/S4
Pulmonary: Clear; Negative Wheezes, Rales or Rhonchi
Gastrointestinal: Soft, Non Tender and Non Distended
Genito-Urinary: Negative Oropeza, Suprapubic Tenderness or CVA Tenderness
Extremities: Negative Edema, Cyanosis or Erythema
Skin: Warm and Dry; Negative Rash or Jaundice
Neurological: Other (somulent but arousable)
Psychological: Calm
Lab / Diagnostic Study Results
12/20/24 03:43
12/19/24 03:49
Abs Immat Gran (auto) 0.1 10^3/uL (0-0.05) H 12/20/24 03:43
Absolute Neuts (auto) 12.9 10^3/uL (1.4-6.5) H 12/20/24 03:43
Absolute Lymphs (auto) 2.8 10^3/uL (1.2-3.4) 12/20/24 03:43
Absolute Monos (auto) 1.7 10^3/uL (0.1-0.6) H 12/20/24 03:43
Absolute Basos (auto) 0.0 10^3/uL (0-0.2) 12/20/24 03:43
Immature Gran % 0.7 % (0-0.5) H 12/20/24 03:43
Neutrophils % 73.6 % (42.2-75.2) 12/20/24 03:43
Lymphocytes % 15.8 % (20.5-51.1) L 12/20/24 03:43
Monocytes % 9.5 % (1.7-9.3) H 12/20/24 03:43
Eosinophils % 0.2 % (0-6) 12/20/24 03:43
Basophils % 0.2 % (0-2) 12/20/24 03:43
ESR 28 mm/hour (0-20) H 12/18/24 10:16
PT 13.9 Sec (11.4-14.6) 12/19/24 03:49
INR 1.04 12/19/24 03:49
Ur Squamous Epith Cells 6-10 /LPF (Few) 12/18/24 15:53
Microbiology Results
Micro:
12/18/24 15:53 Urine Culture - Preliminary
Urine Gram negative bacilli
Imaging:
12/18/2024 CXR (portable): lungs are clear. No pleural effusion or pneumothorax noted. Please see full dictation for additional detail.
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 There is severe stenosis of the proximal right cerebral artery, also unchanged. A large left temporal occipital region infarct is
redemonstrated. Small right pleural effusion. Please see full dictation for additional detail.
12/17/2024 MRI brain without contrast: a large confluent region of nonhemorrhagic acute/subacute infarction within the left temporal occipital lobe. Additional tiny acute/subacute left thalamic infarct is noted. Please see full dictation for
additional detail.
Assessment / Plan
Acute CVA
Leukocytosis; trending down
Asymptomatic bacteriuria/pyuria
Asthma
HTN
HLD
TIA
PVD
Obesity
Recommendations:
At present, patient without urinary symptomatology. Additionally, leukocytosis is trending down over the past 3 days.
Would hold on antibiotics at present.
Monitor closely for the development of any urinary symptoms.
Await final culture data to guide antibiotic selection should the patient decompensate.
Continue with supportive measures.
Care Review
Plan reviewed with: Nurse and Physician (Hospitalist)
--- NOTE | 2024-12-20 13:44 | PTCARENOTE ---
Received pt. from off-going RN @ approx 1100. Assessment per charting- see flow sheet. Pt. worked w PT/OT; able to walk steps in room and then to chair; very restless in chair, unable to sit still and c/o pain in legs, as her 'restless leg pain.'
PT/OT assisted pt. back to bed. Applied Bengay to legs- see APR. Dr. Yadav notified of ongoing restlessness and leg pain; further orders received. Also inquired to Dr. Yadav regarding UA/culture w restlessness, continued altered mentation,
and incontinence; ID consult placed by MD. Costa active; call lindquist in reach.
--- NOTE | 2024-12-20 16:08 | PTCARENOTE ---
Report given to 4E RN and pt. transferred via bed to rm 411, bed 1 on monitoring engineer w belongings and family. No further needs from this RN.
--- NOTE | 2024-12-20 16:20 | CM ---
Patient transferred to Room 411-1. Discharge POC: Therapy recommendation for Acute Rehab. [employer] list provided to patient. Requested at least 3-4 preferences.
--- NOTE | 2024-12-20 16:37 | PTCARENOTE ---
Received pt from ICU via bed, accompanied by [facility] staff x2. Pt awake and alert, oriented to self/place/birthdate; forgetful. Pt anxious at times. BRANCH randomly. NIHSS 5- pt inconsistent in responses, states 'I don't understand'; has difficulty
seeing sentences/pictures; stated I only see half'. Placed on telemetry-NSR with PAC's. On room air- puls eox 96%, no SOB noted. Ab dlarge, soft, to be on IDDI 4 diet. Incont large amts urine upon arrival to unit. Resting in bed at present;
daughter at bedside. Will continue to monitor.
--- NOTE | 2024-12-20 19:46 | W.PN.NEURO.1 ---
Today's Communication / Plan
-
The patient is much more alert today as compared to yesterday. She is able to speak well.
The MRI of the brain showed a large nonhemorrhagic acute/subacute infarction within the left temporooccipital lobes. Also there is a tiny acute/subacute left thalamic infarct.
Continue aspirin 81 mg daily.
Continue rosuvastatin 40 mg daily.
I had a detailed discussion with the patient's daughter regarding the assessment and the management plan, and she verbalized an understanding of our discussion.
Will sign off. Please call if any question.
Neuro Assessment/Plan
Assessment
#stroke in the left temporooccipital lobe
# small acute/subacute left thalamic infarct
Mechanism is most likely atheroemoblic vs. cardioembolic. No afib on EKG. states that she may have missed doses of her medications. She is post TNK and neither POINT nor SAMPRISS trials included post TPA patient's in the trial. She doesn't have
significant posterior intracranial athero to my eye to suggest ICAD as a mechanism. At this time, I recommend continuing her home 81mg aspirin as secondary stroke prevention to minimize risk and to encourage medication compliance. Will need further
stroke work-up to eval for other potential mechanisms listed below. Her fluctuating exam could be due to being perfusional. I recommend decreasing her home BP meds for now to half dose and will increase at a later time, most likely prior to
discharge to home dose.
Stroke labs. LDL = 70,
Plan
- 81mg aspirin daily.
- Slow lowering of blood pressure.
- decrease metoprolol succinate to 25mg daily and amlodipine to 5mg daily.
- TTE pending.
- will need outpatient cardiac monitoring to eval for afib
- LDL goal <70. LDL is 70. Continue home Repatha, rosuvastatin 40mg and ezetimibe 10mg daily.
- Goal normoglycemia, hbA1c is 5.9.
- Infectious workup per primary team.
� NIHSS and neurological checks per unit guidelines.
� Provide patient's family with a stroke education packet.
� PT/OT/ST evaluations.
� DVT prophylaxis.
- Follow-up with Neurology as an outpatient.
Subjective/Objective
Subjective Data
Date of Service: December 20, 2024
The patient is a 79 years old female, who had a large nonhemorrhagic acute/subacute infarction in the left temporooccipital lobes as seen on the MRI. The CTA of the head and neck shows occlusion of the proximal left posterior cerebral artery, the
left vertebral artery is dominant and the basilar artery is patent.
The patient is status post TNK.
On neurologic examination the patient has a right homonymous hemianopsia. She is much more alert today as compared to yesterday.She has antigravity strength in bilateral upper and lower extremities and her speech is clear.
The plan is to continue with aspirin 81 mg daily and rosuvastatin.
The etiology of the stroke is likely secondary to emboli, the source of emboli is unspecified at this time, however cardioembolism is likely. The plan is to get a Holter monitor at the time of discharge. The patient will stay on the stroke pathway.
Objective Data
Vital Signs
Temp Pulse Resp BP Pulse Ox
37.1 C 92 20 158/63 94
12/20/24 19:08 12/20/24 19:08 12/20/24 19:08 12/20/24 19:08 12/20/24 19:08
Lab Results
12/20/24 03:43
12/19/24 03:49
PT 13.9 Sec (11.4-14.6) 12/19/24 03:49
INR 1.04 12/19/24 03:49
APTT 22.4 Sec (23.4-35.0) L 12/19/24 03:49
Sodium 137 mmol/L (135-145) 12/19/24 03:49
Potassium 3.6 mmol/L (3.5-5.1) 12/19/24 03:49
BUN 20 mg/dl (7-17) H 12/19/24 03:49
Glucose 127 mg/dl (70-99) H 12/19/24 03:49
Calcium 7.6 mg/dl (8.4-10.2) L 12/19/24 03:49
LDL Cholesterol, Calc 70 mg/dl 12/17/24 04:12
Patient Allergies
ibandronate sodium (From Boniva) Allergy (Verified 12/16/24 08:50)
Nausea / Vomiting
Vital Signs and Labs
-
Vital Signs and Labs:
Vital Signs
Temp Pulse Resp BP Pulse Ox
37.1 C 92 20 158/63 94
12/20/24 19:08 12/20/24 19:08 12/20/24 19:08 12/20/24 19:08 12/20/24 19:08
Lab Results
12/20/24 03:43
12/19/24 03:49
PT 13.9 Sec (11.4-14.6) 12/19/24 03:49
INR 1.04 12/19/24 03:49
APTT 22.4 Sec (23.4-35.0) L 12/19/24 03:49
Sodium 137 mmol/L (135-145) 12/19/24 03:49
Potassium 3.6 mmol/L (3.5-5.1) 12/19/24 03:49
BUN 20 mg/dl (7-17) H 12/19/24 03:49
Glucose 127 mg/dl (70-99) H 12/19/24 03:49
Calcium 7.6 mg/dl (8.4-10.2) L 12/19/24 03:49
LDL Cholesterol, Calc 70 mg/dl 12/17/24 04:12
Medications
-
Active Medications
Generic Name Dose Route Start Last Admin
Trade Name Freq PRN Reason Stop Dose Admin
Acetaminophen 650 mg 12/16/24 13:49 12/20/24 03:27
Acetaminophen 325 Mg Tablet PO 01/13/25 13:48 650 mg
Q4HPRN PRN Administration
MOORE, mild pain, or temp >100.4F
Albuterol 2 puff 12/19/24 11:24
Albuterol Hfa [90 Mcg/Dose] Inhaler INH
R Q4HPRN PRN
shortness of breath
Protocol
Amlodipine Besylate 5 mg 12/19/24 16:00 12/20/24 08:22
Amlodipine 5 Mg Tablet PO 01/16/25 15:59 5 mg
DAILY ROB Administration
Aspirin 81 mg 12/17/24 18:00 12/20/24 08:22
Aspirin 81 Mg Chewable Tablet PO 01/14/25 17:59 81 mg
DAILY ROB Administration
Calcium Carbonate 500 mg 12/20/24 08:00 12/20/24 08:22
Calcium Carbonate 500 Mg Tablet PO 01/17/25 07:59 500 mg
DAILY ROB Administration
Cholecalciferol 10 mcg 12/20/24 08:00 12/20/24 08:22
Cholecalciferol (Vitamin D3) 10 Mcg Tablet (400 Units) PO 01/17/25 07:59 10 mcg
DAILY ROB Administration
Dicyclomine HCl 20 mg 12/20/24 08:00 12/20/24 08:22
Dicyclomine 10 Mg Capsule PO 01/17/25 07:59 20 mg
DAILY ROB Administration
Ezetimibe 10 mg 12/17/24 17:00 12/18/24 09:49
Ezetimibe (Zetia) 10 Mg Tablet PO 01/14/25 16:59 Not Given
On Hold: 12/18/24 10:21 DAILY ROB
Menthol/Methyl Salicylate 1 applic 12/19/24 22:00 12/20/24 17:23
Bengay-Like Cream TOPICAL 01/16/25 21:59 1 applic
QID ROB Administration
Metoprolol Succinate 25 mg 12/18/24 09:00 12/20/24 08:22
Metoprolol 25 Mg Extended Release Tablet PO 01/15/25 08:59 25 mg
DAILY ROB Administration
Ondansetron HCl 4 mg 12/16/24 15:00 12/17/24 08:15
Ondansetron 4 Mg/2 Ml Vial IV 01/13/25 14:59 4 mg
Q6HPRN PRN Administration
NAUSEA/VOMITING
Pantoprazole Sodium 40 mg 12/19/24 08:00 12/20/24 08:22
Pantoprazole Sodium 40 Mg/10 Ml Vial IV 01/16/25 07:59 40 mg
BID ROB Administration
Prochlorperazine Edisylate 10 mg 12/17/24 09:39 12/19/24 01:25
Prochlorperazine 10 Mg/2 Ml Vial IV 01/14/25 09:38 10 mg
Q6HPRN PRN Administration
nausea and or vomiting
Ropinirole HCl 0.25 mg 12/19/24 22:00 12/19/24 19:53
Ropinirole 0.25 Mg Tablet PO 01/16/25 21:59 0.25 mg
HS ROB Administration
Rosuvastatin Calcium 40 mg 12/17/24 22:00 12/19/24 19:53
Rosuvastatin (Crestor) 20 Mg Tablet PO 01/14/25 21:59 40 mg
HS ROB Administration
Sertraline HCl 100 mg 12/19/24 13:00 12/20/24 08:22
Sertraline 100 Mg Tablet PO 01/16/25 12:59 100 mg
DAILY ROB Administration
Sodium Chloride 0 flush 12/16/24 13:00
Sodium Chloride 0.9% (Flush) Syringe IV 01/13/25 12:59
PER PROTOCOL ROB
Sodium Chloride 10 ml 12/19/24 10:00 12/20/24 08:21
Sodium Chloride 0.9% (Preservative Free) 10 Ml Vial IV 01/16/25 09:59 10 ml
BID ROB Administration
Tramadol HCl 25 mg 12/20/24 12:03
Tramadol Hcl 50 Mg Tablet PO 01/17/25 12:02
Q6HPRN PRN
severe pain
Home Medications
�Medication �Instructions �Recorded
dicyclomine 20 mg tablet 20 mg PO DAILY Gastrointestinal 10/19/19
Issue
esomeprazole magnesium 20 mg 40 mg PO DAILYPRN PRN ged 10/19/19
capsule,delayed release (Nexium)
sertraline 100 mg tablet 100 mg PO DAILY Depression 10/19/19
albuterol sulfate 90 mcg/actuation 2 puff inhalation R Q4HPRN PRN 09/15/22
aerosol inhaler shortness of breath
amlodipine 10 mg tablet 10 mg PO DAILY Blood Pressure 09/15/22
aspirin 81 mg tablet,delayed 81 mg PO DAILY Blood Clot 09/15/22
release Prevention/Tx
metoprolol succinate 50 mg 50 mg PO DAILY Blood Pressure 09/15/22
tablet,extended release 24 hr
mirabegron 50 mg tablet,extended 50 mg PO DAILY Urinary Issue 09/15/22
release 24 hr (Myrbetriq)
ezetimibe 10 mg tablet 10 mg PO DAILY High Cholesterol 02/13/23
rosuvastatin 40 mg tablet 40 mg PO HS High Cholesterol 02/13/23
fluticasone furoate 200 1 inh inhalation R DAILY 02/13/24
mcg-vilanterol 25 mcg/dose Lung/Breathing Issues
inhalation powder (Breo Ellipta)
calcium carbonate 500 mg PO DAILY Supplement 12/16/24
cholecalciferol (vitamin D3) 10 10 mcg PO DAILY Supplement 12/16/24
mcg (400 unit) tablet (Vitamin D3)
evolocumab 140 mg/mL subcutaneous 140 mg SC Q2W High Cholesterol 12/16/24
pen injector (Darwin Coffman)
[2024-12-20] MEDS: REQUIP 0.25 MG PO (20:18)
[2024-12-20] MEDS: CRESTOR 40 MG PO (20:18)
[2024-12-21] VITALS (8 sets, daily range): BP systolic 132–162; BP diastolic 45–84
[2024-12-21 07:28] LABS: Hematocrit 26.6 % (37.0-47.0); Hemoglobin 9.0 g/dL (12.0-16.0); Mean Corp Hgb Conc. 33.8 g/dL (33.0-37.0); Mean Corpuscular Volume 91.1 fL (81.0-99.0); Nucleated Red Blood Cells % 0.2 %; Platelet Count 225 10^3/uL (130-400); Red Cell Dist. Width 14.1 % (11.5-14.5)
[2024-12-21 07:57] LABS: ALT (SGPT) 64 U/L (0-35); AST (SGOT) 145 U/L (14-36); Albumin 2.9 g/dl (3.5-5.0); Alkaline Phosphatase 74 U/L (38-126); Blood Urea Nitrogen 8 mg/dl (7-17); Calcium 7.9 mg/dl (8.4-10.2); Carbon Dioxide 25 mmol/L (22-30); Chloride 106 mmol/L (98-107); Estimated Creatinine Clearance 65 ml/min; Glucose 68 mg/dl (70-99); Potassium 2.7 mmol/L (3.5-5.1); Sodium 137 mmol/L (135-145); Total Protein 5.0 g/dl (6.3-8.2); eGFR > 60.00
[2024-12-21] MEDS: NSS (PRESERVATIVE FREE) 10 ML IV ×2 (08:06→20:03)
[2024-12-21] MEDS: PROTONIX IV 40 MG IV ×2 (08:06→20:03)
[2024-12-21] MEDS: ZOLOFT 100 MG PO (08:07)
[2024-12-21] MEDS: BENTYL 20 MG PO (08:07)
[2024-12-21] MEDS: TOPROL XL 25 MG PO (08:08)
[2024-12-21] MEDS: LOW STRENGTH ASPIRIN 81 MG PO (08:08)
[2024-12-21] MEDS: BenGay-Like TOPICAL (08:09)
[2024-12-21] MEDS: OSCAL CAL 500 500 MG PO (08:09)
[2024-12-21] MEDS: NORVASC 5 MG PO (08:10)
[2024-12-21] MEDS: VITAMIN D3 (cholecalciferol) 10 MCG PO (08:12)
[2024-12-21] MEDS: KCL ELIXIR 40 MEQ PO (08:16)
[2024-12-21] MEDS: KCL 270 MEQ IV (08:19)
--- NOTE | 2024-12-21 09:31 | W.PN.HOSP.TC ---
Today's Communication/Plan
-
Replete potassium
Check magnesium
Continue PT/OT
Advance diet
Repeat labs later today
Assessment / Plan
Assessment / Plan
Gen-awake, alert, NAD
HEENT-NC, AT, anicteric, clear oral mm
Neck-supple
CV-reg, no M, +S1/S2
Lungs-clear B/L
Abd-soft, NT, ND
Ext-no edema
Musculoskeletal-no cyanosis, clubbing
Skin-warm and dry
Neuro-weak right lower extremity greater than right upper extremity
Psych-calm, cooperative
Delirium -hospital-acquired. Suspect etiology of delirium is due to acute illness with stroke, GI bleed, shock, hospitalization.
Mental status much improved today. Now she is awake, alert, able to answer questions and follow commands. Appears to be at baseline.
Acute upper GI bleed -GI bleed exacerbated by recent thrombolysis administration for acute stroke.
EGD completed 12/18. Shows diffuse esophageal ulcers with stigmata of recent bleeding. LA grade D esophagitis with bleeding. Coffee-ground material in the gastric body. Duodenal erosions without bleeding. No specimens collected.
Still with burgundy stools via rectal tube. Hemodynamically stable.
Now on IV Protonix twice daily per GI.
Acute blood loss anemia -due to acute GI bleed. Transfused 2 units of blood in 12/18. Hemoglobin down slightly to 9.0 today. Monitor for now. Admission hemoglobin was 15.3.
Hypotension/shock: Likely due to hypovolemia and GI bleed. Blood pressure recovered and now hypertensive. Did not require vasopressors. Shock resolved.
Acute stroke with right hemiparesis, right homonymous hemianopsia: Involving left temporooccipital lobe. Additional tiny acute/subacute left thalamic infarct.
Status post TNK
Continue aspirin. Neurology recommends outpatient cardiac monitoring on discharge.
Echocardiogram shows LVEF 67%. No significant changes compared to August 2020 study. Mild septal hypertrophy with septum measuring 1.1 cm. Mild to moderate mitral regurgitation. Mild to moderate TR.
Acute dysphagia -due to stroke. Dysphagia improving. Speech therapy recommends advancing to regular solids and thin liquids.
Nausea resolved.
Elevated transaminases -unclear etiology. Will monitor for now.
Hypokalemia -will replete. Check magnesium. Recheck potassium level later today.
Headache: Resolved.
Leukocytosis: Suspect leukemoid reaction. Afebrile. Doubt infection. WBC count trended down.
Essential hypertension: Blood pressure overall improving. Continue amlodipine, Toprol XL. Can slowly titrate up doses.
Hyperlipidemia:
Continue rosuvastatin, Zetia.
Possible RLS -ropinirole started.
DVT prophylaxis:
SCDs
Hold Lovenox due to GI bleed.
Full code
Dispo -discussed with case management plans for for acute rehab on discharge. Will monitor overnight given hypokalemia.
Anticipated Discharge: Within 24 hours
Subjective/Interval History
-
Date of Service: December 21, 2024
Patient seen and examined. No complaints.
Objective Data
-
Labs:
Laboratory Results
12/21/24 12/21/24
07:09 16:00
WBC 12.1 H
Hgb 9.0 L
Hct 26.6 L
Plt Count 225
Sodium 137 Pending
Potassium 2.7 L* Pending
Chloride 106 Pending
Carbon Dioxide 25 Pending
BUN 8 Pending
Creatinine 0.5 L Pending
Glucose 68 L Pending
Calcium 7.9 L Pending
Total Bilirubin 0.4 Pending
AST 145 H Pending
ALT 64 H Pending
Alkaline Phosphatase 74 Pending
Vital Signs:
Vital Signs
Temp Pulse Resp BP Pulse Ox
99.3 F 87 18 148/48 94
12/21/24 08:15 12/21/24 08:15 12/21/24 08:15 12/21/24 08:15 12/21/24 08:15
I&O
12/20/24 12/21/24 12/22/24
06:59 06:59 06:59
Intake Total 1980.0 / 1980.0 120 / 120
Output Total 850 / 850
Balance 1130.0 / 1130.0 120 / 120
Review of Systems
-
History Source: Patient
All other systems: Reviewed and negative
[2024-12-21 09:42] LABS: Magnesium 2.1 mg/dl (1.6-2.3)
[2024-12-21] MEDS: TYLENOL 650 MG PO (11:48)
[2024-12-21] MEDS: BenGay-Like 1 APPLIC TOPICAL ×3 (14:02→21:33)
--- NOTE | 2024-12-21 14:50 | CM ---
Pt provided additional choices for acute rehab, [facility] and [facility] 1st choice and they accepted for tomorrow pending documentation that the pt is no longer bleeding; no blood in stools, stable H&H.
PT and OT to re-eval patient this afternoon
Plan: DC to [facility]
--- NOTE | 2024-12-21 15:37 | W.PN.ID1 ---
Date of Service
Date of Service: December 21, 2024
Today's Communication
Observe off antibiotics.
Assessment / Plan
Acute CVA
Leukocytosis; trending down
Asymptomatic bacteriuria/pyuria
Asthma
HTN
HLD
TIA
PVD
Obesity
Recommendations:
At present, patient without urinary symptomatology. Leukocytosis continues to trend down over the past 4 days.
Would hold on antibiotics at present.
Monitor closely for the development of any urinary symptoms.
Continue with supportive measures.
����������������������������������������������������������
Chief Complaint
-: Other (Bacteriuria)
Subjective / Review of Systems
Patient seen and examined. Granddaughter at bedside. Reports patient awake earlier in the day, but has fallen asleep at this point in time.
Vital Signs / Physical Exam
Vital Signs
Vital Signs
Temp Pulse Resp BP Pulse Ox
100.2 F 80 18 139/45 94
12/21/24 11:35 12/21/24 11:35 12/21/24 11:35 12/21/24 11:35 12/21/24 11:35
Physical Exam
Constitutional: Comfortable, Chronically Ill and Non-toxic
Cardiovascular: S1/S2; Negative S3/S4
Pulmonary: Non Labored
Gastrointestinal: Soft, Non Tender and Non Distended
Skin: Warm and Dry; Negative Rash or Jaundice
Objective Data
Lab Data
Lab Results
12/21/24 07:09
ESR 28 mm/hour (0-20) H 12/18/24 10:16
PT 13.9 Sec (11.4-14.6) 12/19/24 03:49
INR 1.04 12/19/24 03:49
APTT 22.4 Sec (23.4-35.0) L 12/19/24 03:49
Estimated Creat Clear 65 ml/min 12/21/24 07:09
Total Bilirubin 0.4 mg/dl (0.2-1.3) 12/21/24 07:09
AST 145 U/L (14-36) H 12/21/24 07:09
ALT 64 U/L (0-35) H 12/21/24 07:09
Alkaline Phosphatase 74 U/L (38-126) 12/21/24 07:09
Most recent labs reviewed.
Micro Results:
12/18/24 15:53 Urine Culture - Final
Urine Escherichia coli
Urine Culture Final 12/18/2024
CC: Greater than 100,000 CFU/ML Escherichia coli
Organism 1 Escherichia coli
1. Escherichia coli
M.I.C. RX
--------- ---
Amoxicillin/Potas. Clavulanate <=8/4 S
Ampicillin >16 R
Ampicillin/Sulbactam >16/8 R
Aztreonam <=4 S
Cefazolin 8 R
Cefepime <=2 S
Ceftazidime <=1 S
Ceftriaxone <=1 S
Ertapenem <=0.5 S
Ciprofloxacin <=0.25 S
Gentamicin <=2 S
Meropenem <=1 S
Nitrofurantoin-Urine Only <=32 S
Piperacillin/Tazobactam <=8 S
Tetracycline <=4 S
Tobramycin <=2 S
Trimethoprim/Sulfamethoxazole >2/38 R
Imaging:
12/18/2024 CXR (portable): lungs are clear. No pleural effusion or pneumothorax noted. Please see full dictation for additional detail.
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 There is severe stenosis of the proximal right cerebral artery, also unchanged. A large left temporal occipital region infarct is
redemonstrated. Small right pleural effusion. Please see full dictation for additional detail.
12/17/2024 MRI brain without contrast: a large confluent region of nonhemorrhagic acute/subacute infarction within the left temporal occipital lobe. Additional tiny acute/subacute left thalamic infarct is noted. Please see full dictation for
additional detail.
Care Review
Plan reviewed with: Physician (Hospitalist)
[2024-12-21 16:15] LABS: ALT (SGPT) 75 U/L (0-35); AST (SGOT) 160 U/L (14-36); Albumin 3.4 g/dl (3.5-5.0); Alkaline Phosphatase 89 U/L (38-126); Blood Urea Nitrogen 8 mg/dl (7-17); Calcium 8.4 mg/dl (8.4-10.2); Carbon Dioxide 27 mmol/L (22-30); Chloride 105 mmol/L (98-107); Estimated Creatinine Clearance 65 ml/min; Glucose 94 mg/dl (70-99); Potassium 3.5 mmol/L (3.5-5.1); Sodium 137 mmol/L (135-145); Total Protein 5.9 g/dl (6.3-8.2); eGFR > 60.00
[2024-12-21] MEDS: REQUIP 0.25 MG PO (21:33)
[2024-12-21] MEDS: CRESTOR 40 MG PO (21:33)
[2024-12-22 03:00] VITALS: BP 157/57
[2024-12-22 07:20] VITALS: BP 147/51
[2024-12-22 08:19] LABS: ALT (SGPT) 65 U/L (0-35); AST (SGOT) 107 U/L (14-36); Albumin 3.1 g/dl (3.5-5.0); Alkaline Phosphatase 83 U/L (38-126); Blood Urea Nitrogen 7 mg/dl (7-17); Calcium 7.9 mg/dl (8.4-10.2); Carbon Dioxide 26 mmol/L (22-30); Chloride 103 mmol/L (98-107); Estimated Creatinine Clearance 65 ml/min; Glucose 65 mg/dl (70-99); Potassium 3.2 mmol/L (3.5-5.1); Sodium 136 mmol/L (135-145); Total Protein 5.5 g/dl (6.3-8.2); eGFR > 60.00
[2024-12-22 08:38] LABS: Hematocrit 29.1 % (37.0-47.0); Hemoglobin 9.9 g/dL (12.0-16.0); Mean Corp Hgb Conc. 34.0 g/dL (33.0-37.0); Mean Corpuscular Volume 91.2 fL (81.0-99.0); Nucleated Red Blood Cells % 0.3 %; Platelet Count 271 10^3/uL (130-400); Red Cell Dist. Width 14.1 % (11.5-14.5)
[2024-12-22] MEDS: BENTYL 20 MG PO (08:50)
[2024-12-22] MEDS: KCL ELIXIR 40 MEQ PO (08:50)
[2024-12-22] MEDS: TOPROL XL 25 MG PO (08:50)
[2024-12-22] MEDS: LOW STRENGTH ASPIRIN 81 MG PO (08:51)
[2024-12-22] MEDS: OSCAL CAL 500 500 MG PO (08:51)
[2024-12-22] MEDS: NORVASC 5 MG PO (08:51)
[2024-12-22] MEDS: VITAMIN D3 (cholecalciferol) 10 MCG PO (08:51)
[2024-12-22] MEDS: ZOLOFT 100 MG PO (08:57)
[2024-12-22] MEDS: BenGay-Like 1 APPLIC TOPICAL ×3 (08:57→21:49)
[2024-12-22] MEDS: PROTONIX IV 40 MG IV (09:00)
[2024-12-22] MEDS: NSS (PRESERVATIVE FREE) 10 ML IV (09:00)
--- NOTE | 2024-12-22 09:58 | W.PN.HOSP.TC ---
Today's Communication/Plan
-
Continue potassium repletion
Labs in the morning
Assessment / Plan
Assessment / Plan
Gen-awake, alert, NAD
HEENT-NC, AT, anicteric, clear oral mm
Neck-supple
CV-reg, no M, +S1/S2
Lungs-clear B/L
Abd-soft, NT, ND
Ext-no edema
Musculoskeletal-no cyanosis, clubbing
Skin-warm and dry
Neuro-weak right lower extremity greater than right upper extremity
Psych-calm, cooperative
Delirium -hospital-acquired. Suspect etiology of delirium is due to acute illness with stroke, GI bleed, shock, hospitalization.
Delirium resolved.
Acute upper GI bleed -GI bleed exacerbated by recent thrombolysis administration for acute stroke.
EGD completed 12/18. Shows diffuse esophageal ulcers with stigmata of recent bleeding. LA grade D esophagitis with bleeding. Coffee-ground material in the gastric body. Duodenal erosions without bleeding. No specimens collected.
Still with burgundy stools via rectal tube. Hemodynamically stable.
Now on Protonix twice daily per GI.
Acute blood loss anemia -due to acute GI bleed. Transfused 2 units of blood in 12/18. Hemoglobin spontaneously improved to 9.9 today. Monitor for now. Admission hemoglobin was 15.3.
Hypotension/shock: Likely due to hypovolemia and GI bleed. Blood pressure recovered and now hypertensive. Did not require vasopressors. Shock resolved.
Acute stroke with right hemiparesis, right homonymous hemianopsia: Involving left temporooccipital lobe. Additional tiny acute/subacute left thalamic infarct.
Status post TNK
Continue aspirin. Neurology recommends outpatient cardiac monitoring on discharge.
Echocardiogram shows LVEF 67%. No significant changes compared to August 2020 study. Mild septal hypertrophy with septum measuring 1.1 cm. Mild to moderate mitral regurgitation. Mild to moderate TR.
Acute dysphagia -due to stroke. Dysphagia improving. Speech therapy recommends advancing to regular solids and thin liquids.
Nausea resolved.
Elevated transaminases -suspect due to ischemic hepatitis due to hypotension, shock. LFTs improving.
Hypokalemia -still low at 3.2. Continue repletion. Recheck in the morning.
Headache: Resolved.
Leukocytosis: Suspect leukemoid reaction. Afebrile. Doubt infection. WBC count trended down.
Essential hypertension: Blood pressure overall improving. Continue amlodipine, Toprol XL. Can slowly titrate up doses.
Hyperlipidemia:
Continue rosuvastatin, Zetia.
Possible RLS -ropinirole started. Patient states her symptoms have improved.
DVT prophylaxis:
SCDs
Hold Lovenox due to GI bleed.
Full code
Dispo -discussed with case management plans for for acute rehab on discharge. Will monitor overnight given hypokalemia.
Anticipated Discharge: Within 24 hours
Subjective/Interval History
-
Date of Service: December 22, 2024
Patient seen and examined. No new complaints.
Objective Data
-
Labs:
Laboratory Results
12/22/24
07:14
WBC 11.4 H
Hgb 9.9 L
Hct 29.1 L
Plt Count 271 D
Sodium 136
Potassium 3.2 L
Chloride 103
Carbon Dioxide 26
BUN 7
Creatinine 0.5 L
Glucose 65 L
Calcium 7.9 L
Total Bilirubin 0.5
AST 107 H
ALT 65 H
Alkaline Phosphatase 83
Vital Signs:
Vital Signs
Temp Pulse Resp BP Pulse Ox
99.0 F 82 16 147/51 95
12/22/24 07:20 12/22/24 07:20 12/22/24 07:20 12/22/24 07:20 12/22/24 07:20
I&O
12/21/24 12/22/24 12/23/24
06:59 06:59 06:59
Intake Total 120 / 120
Balance 120 / 120
Review of Systems
-
History Source: Patient
All other systems: Reviewed and negative
[2024-12-22] MEDS: KCL 270 MEQ IV (10:35)
[2024-12-22 11:15] VITALS: BP 136/65
[2024-12-22] MEDS: BenGay-Like TOPICAL (13:06)
--- NOTE | 2024-12-22 13:51 | W.PN.ID1 ---
Date of Service
Date of Service: December 22, 2024
Today's Communication
Observe off antibiotics.
Assessment / Plan
Acute CVA
Leukocytosis; trending down
Asymptomatic bacteriuria/pyuria
Asthma
HTN
HLD
TIA
PVD
Obesity
Recommendations:
At present, patient without urinary symptomatology. Leukocytosis continues to trend down over the past 5 days.
Observe off antibiotics.
Monitor closely for the development of any urinary symptoms.
Continue with supportive measures.
����������������������������������������������������������
Chief Complaint
-: Other (Bacteriuria)
Subjective / Review of Systems
Review of Systems: No Fever, No Chills, No Nausea and No Dysuria
Vital Signs / Physical Exam
Vital Signs
Vital Signs
Temp Pulse Resp BP Pulse Ox
98.8 F 80 16 136/65 95
12/22/24 11:15 12/22/24 11:15 12/22/24 11:15 12/22/24 11:15 12/22/24 11:15
Physical Exam
Constitutional: Comfortable, Chronically Ill and Non-toxic
Cardiovascular: S1/S2; Negative S3/S4
Pulmonary: Non Labored
Gastrointestinal: Soft, Non Tender and Non Distended
Skin: Warm and Dry; Negative Rash or Jaundice
Objective Data
Lab Data
Lab Results
12/22/24 07:14
12/22/24 07:14
ESR 28 mm/hour (0-20) H 12/18/24 10:16
PT 13.9 Sec (11.4-14.6) 12/19/24 03:49
INR 1.04 12/19/24 03:49
APTT 22.4 Sec (23.4-35.0) L 12/19/24 03:49
Estimated Creat Clear 65 ml/min 12/22/24 07:14
Total Bilirubin 0.5 mg/dl (0.2-1.3) 12/22/24 07:14
AST 107 U/L (14-36) H 12/22/24 07:14
ALT 65 U/L (0-35) H 12/22/24 07:14
Alkaline Phosphatase 83 U/L (38-126) 12/22/24 07:14
Most recent labs reviewed.
Micro Results:
12/18/24 15:53 Urine Culture - Final
Urine Escherichia coli
Urine Culture Final 12/18/2024
CC: Greater than 100,000 CFU/ML Escherichia coli
Organism 1 Escherichia coli
1. Escherichia coli
M.I.C. RX
--------- ---
Amoxicillin/Potas. Clavulanate <=8/4 S
Ampicillin >16 R
Ampicillin/Sulbactam >16/8 R
Aztreonam <=4 S
Cefazolin 8 R
Cefepime <=2 S
Ceftazidime <=1 S
Ceftriaxone <=1 S
Ertapenem <=0.5 S
Ciprofloxacin <=0.25 S
Gentamicin <=2 S
Meropenem <=1 S
Nitrofurantoin-Urine Only <=32 S
Piperacillin/Tazobactam <=8 S
Tetracycline <=4 S
Tobramycin <=2 S
Trimethoprim/Sulfamethoxazole >2/38 R
Imaging:
12/18/2024 CXR (portable): lungs are clear. No pleural effusion or pneumothorax noted. Please see full dictation for additional detail.
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 There is severe stenosis of the proximal right cerebral artery, also unchanged. A large left temporal occipital region infarct is
redemonstrated. Small right pleural effusion. Please see full dictation for additional detail.
12/17/2024 MRI brain without contrast: a large confluent region of nonhemorrhagic acute/subacute infarction within the left temporal occipital lobe. Additional tiny acute/subacute left thalamic infarct is noted. Please see full dictation for
additional detail.
[2024-12-22 15:32] VITALS: BP 130/46
--- NOTE | 2024-12-22 15:35 | CM ---
Addendum entered by Emily Reed 12/22/24 16:03:
[facility]
Report:[id number]
Original Note:
Pt treated for low K+ today. DC to [facility] delayed until medically stable. Possible DC tomorrow. Obtained insurance auth. Dtr made aware
Insurance Auth#: [id number]
Approved 5 days of acute rehab
Start date 12/23/24
Next review date 12/27/24
Updates PH: [phone]
Spoke with Gillian
Leeanna from [facility] made aware. Made Dr. Yadav aware.
Plan: DC to [facility] when medically stable
[2024-12-22] MEDS: PROTONIX 40 MG PO (19:47)
[2024-12-22] MEDS: CRESTOR 40 MG PO (21:49)
[2024-12-22] MEDS: REQUIP 0.25 MG PO (21:49)
[2024-12-22] MEDS: KCL 20 MEQ PO (21:51)
[2024-12-22 23:15] VITALS: BP 132/49
[2024-12-23 08:13] VITALS: BP 144/51
[2024-12-23 08:50] LABS: Hematocrit 30.9 % (37.0-47.0); Hemoglobin 10.4 g/dL (12.0-16.0); Mean Corp Hgb Conc. 33.7 g/dL (33.0-37.0); Mean Corpuscular Volume 92.0 fL (81.0-99.0); Nucleated Red Blood Cells % 0 %; Platelet Count 329 10^3/uL (130-400); Red Cell Dist. Width 14.5 % (11.5-14.5)
[2024-12-23 09:05] LABS: ALT (SGPT) 61 U/L (0-35); AST (SGOT) 78 U/L (14-36); Albumin 3.3 g/dl (3.5-5.0); Alkaline Phosphatase 91 U/L (38-126); Blood Urea Nitrogen 8 mg/dl (7-17); Calcium 8.2 mg/dl (8.4-10.2); Carbon Dioxide 30 mmol/L (22-30); Chloride 103 mmol/L (98-107); Estimated Creatinine Clearance 65 ml/min; Glucose 89 mg/dl (70-99); Magnesium 2.1 mg/dl (1.6-2.3); Potassium 4.2 mmol/L (3.5-5.1); Sodium 135 mmol/L (135-145); Total Protein 5.7 g/dl (6.3-8.2); eGFR > 60.00
[2024-12-23] MEDS: BenGay-Like 1 APPLIC TOPICAL (09:16)
[2024-12-23] MEDS: BENTYL 20 MG PO (09:17)
[2024-12-23] MEDS: OSCAL CAL 500 500 MG PO (09:18)
[2024-12-23] MEDS: VITAMIN D3 (cholecalciferol) 10 MCG PO (09:18)
[2024-12-23] MEDS: LOW STRENGTH ASPIRIN 81 MG PO (09:18)
[2024-12-23] MEDS: ZOLOFT 100 MG PO (09:18)
[2024-12-23] MEDS: NORVASC 5 MG PO (09:18)
[2024-12-23] MEDS: PROTONIX 40 MG PO (09:18)
[2024-12-23] MEDS: TOPROL XL 25 MG PO (09:18)
[2024-12-23] MEDS: KCL ELIXIR 40 MEQ PO (09:19)
--- NOTE | 2024-12-23 09:27 | W.PN.HOSP.TC ---
Today's Communication/Plan
-
Discharge
Assessment / Plan
Assessment / Plan
Gen-awake, alert, NAD
HEENT-NC, AT, anicteric, clear oral mm
Neck-supple
CV-reg, no M, +S1/S2
Lungs-clear B/L
Abd-soft, NT, ND
Ext-no edema
Musculoskeletal-no cyanosis, clubbing
Skin-warm and dry
Neuro-weak right lower extremity greater than right upper extremity
Psych-calm, cooperative
Delirium -hospital-acquired. Suspect etiology of delirium is due to acute illness with stroke, GI bleed, shock, hospitalization.
Delirium resolved.
Acute upper GI bleed -GI bleed exacerbated by recent thrombolysis administration for acute stroke.
EGD completed 12/18. Shows diffuse esophageal ulcers with stigmata of recent bleeding. LA grade D esophagitis with bleeding. Coffee-ground material in the gastric body. Duodenal erosions without bleeding. No specimens collected.
Bleeding resolved.
Now on Protonix twice daily per GI.
Acute blood loss anemia -due to acute GI bleed. Transfused 2 units of blood in 12/18. Hemoglobin spontaneously improved to 10.4 today. Monitor for now. Admission hemoglobin was 15.3.
Hypotension/shock: Likely due to hypovolemia and GI bleed. Blood pressure recovered and now hypertensive. Did not require vasopressors. Shock resolved.
Acute stroke with right hemiparesis, right homonymous hemianopsia: Involving left temporooccipital lobe. Additional tiny acute/subacute left thalamic infarct.
Status post TNK
Continue aspirin. Neurology recommends outpatient cardiac monitoring on discharge.
Echocardiogram shows LVEF 67%. No significant changes compared to August 2020 study. Mild septal hypertrophy with septum measuring 1.1 cm. Mild to moderate mitral regurgitation. Mild to moderate TR.
Acute dysphagia -due to stroke. Dysphagia improving. Tolerating regular solids and thin liquids.
Nausea resolved.
Elevated transaminases -suspect due to ischemic hepatitis due to hypotension, shock. LFTs improving.
Hypokalemia -resolved. Continue repletion. Magnesium is normal.
Headache: Resolved.
Leukocytosis: Suspect leukemoid reaction. Afebrile. Doubt infection. WBC now normal.
Asymptomatic bacteriuria, pyuria noted. No indication for antibiotics.
Essential hypertension: Blood pressure overall improving. Continue amlodipine, Toprol XL. Can slowly titrate up doses.
Hyperlipidemia:
Continue rosuvastatin, Zetia.
Possible RLS -ropinirole started. Patient states her symptoms have improved.
DVT prophylaxis:
SCDs
Hold Lovenox due to GI bleed.
Full code
Dispo -medically stable for discharge to [facility] today. Case management aware.
35 minutes spent in discharge process.
Anticipated Discharge: Today
Subjective/Interval History
-
Date of Service: December 23, 2024
Patient seen and examined. No new complaints.
Objective Data
-
Labs:
Laboratory Results
12/23/24
06:50
WBC 10.6
Hgb 10.4 L
Hct 30.9 L
Plt Count 329 D
Sodium 135
Potassium 4.2 D
Chloride 103
Carbon Dioxide 30
BUN 8
Creatinine 0.5 L
Glucose 89
Calcium 8.2 L
Total Bilirubin 0.5
AST 78 H
ALT 61 H
Alkaline Phosphatase 91
Vital Signs:
Vital Signs
Temp Pulse Resp BP Pulse Ox
98.7 F 77 18 144/51 97
12/23/24 08:13 12/23/24 08:13 12/23/24 08:13 12/23/24 08:13 12/23/24 08:13
I&O
12/22/24 12/23/24 12/24/24
06:59 06:59 06:59
Intake Total 630 / 630
Balance 630 / 630
Review of Systems
-
History Source: Patient
All other systems: Reviewed and negative
--- NOTE | 2024-12-23 09:36 | W.DS.TRANS ---
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
-
Discharge Instructions:
Discharge Diagnosis/Procedures Acute stroke, acute GI bleed, acute dysphagia,
hypokalemia
Diet Low Cholesterol,Low Fat
Activity With assistance,As tolerated
Driving Restrictions No driving
Bathing Restrictions None
Blood Work CBC, BMP next week
Instructions:
Stand-Alone Forms:
Changes to Home Medications: No
Discharge Medications:
DC Medications w/original date entered in [employer]
dicyclomine 20 mg tablet 20 mg PO DAILY Gastrointestinal Issue 10/19/19
sertraline 100 mg tablet 100 mg PO DAILY Depression 10/19/19
albuterol sulfate 90 mcg/actuation aerosol inhaler 2 puff inhalation R [id number] PRN shortness of breath 09/15/22
aspirin 81 mg tablet,delayed release 81 mg PO DAILY Blood Clot Prevention/Tx 09/15/22
mirabegron 50 mg tablet,extended release 24 hr (Myrbetriq) 50 mg PO DAILY Urinary Issue 09/15/22
ezetimibe 10 mg tablet 10 mg PO DAILY High Cholesterol 02/13/23
rosuvastatin 40 mg tablet 40 mg PO HS High Cholesterol 02/13/23
fluticasone furoate 200 mcg-vilanterol 25 mcg/dose inhalation powder (Breo Ellipta) 1 inh inhalation R DAILY Lung/Breathing Issues 02/13/24
calcium carbonate 500 mg PO DAILY Supplement 12/16/24
cholecalciferol (vitamin D3) 10 mcg (400 unit) tablet (Vitamin D3) 10 mcg PO DAILY Supplement 12/16/24
evolocumab 140 mg/mL subcutaneous pen injector (Repatha SureClick) 140 mg SC Q2W High Cholesterol 12/16/24
amlodipine 5 mg tablet 5 mg PO DAILY #0 tabs 12/23/24
methyl salicylate 15 %-menthol 10 % topical cream (Analgesic [place] (m.salic-menthol)) 1 applic topical QID #0 grams 12/23/24
metoprolol succinate 25 mg tablet,extended release 24 hr 25 mg PO DAILY #0 tabs 12/23/24
pantoprazole 40 mg tablet,delayed release 40 mg PO BID #0 tabs 12/23/24
potassium chloride 20 mEq/15 mL oral liquid 40 meq (30 mL) PO DAILY #0 mL 12/23/24
ropinirole 0.25 mg tablet 0.25 mg PO HS #0 tabs 12/23/24
Home Medication Changes
Pending Results: No
--- NOTE | 2024-12-23 09:37 | CM ---
Addendum entered by Emily Reed 12/23/24 09:49:
IMM given and placed on chart. Pt aware of discharge
Original Note:
Pt discharged to [facility] today. Dtr made aware. IMM given.
[facility]
Report:[phone]
[2024-12-23 11:30] VITALS: BP 138/48
--- NOTE | 2024-12-23 12:29 | W.PN.ID1 ---
Date of Service
Date of Service: December 23, 2024
Today's Communication
Sign off
Assessment / Plan
Acute CVA
Leukocytosis; trending down
Asymptomatic bacteriuria/pyuria
Asthma
HTN
HLD
TIA
PVD
Obesity
Recommendations:
At present, patient without urinary symptomatology. Leukocytosis continues to trend down over the past 5 days.
Continue off antibiotics.
Little more to offer from a Infectious Diseases standpoint.
Will see again at your request.
����������������������������������������������������������
Chief Complaint
-: Other (Bacteriuria)
Subjective / Review of Systems
Review of Systems: No Fever and No Chills
Vital Signs / Physical Exam
Vital Signs
Vital Signs
Temp Pulse Resp BP Pulse Ox
99 F 67 16 138/48 97
12/23/24 11:30 12/23/24 11:30 12/23/24 11:30 12/23/24 11:30 12/23/24 11:30
Physical Exam
Constitutional: Comfortable, Chronically Ill and Non-toxic
Cardiovascular: S1/S2; Negative S3/S4
Pulmonary: Non Labored
Gastrointestinal: Soft, Non Tender and Non Distended
Skin: Warm and Dry; Negative Rash or Jaundice
Objective Data
Lab Data
Lab Results
12/23/24 06:50
12/23/24 06:50
ESR 28 mm/hour (0-20) H 12/18/24 10:16
PT 13.9 Sec (11.4-14.6) 12/19/24 03:49
INR 1.04 12/19/24 03:49
APTT 22.4 Sec (23.4-35.0) L 12/19/24 03:49
Estimated Creat Clear 65 ml/min 12/23/24 06:50
Total Bilirubin 0.5 mg/dl (0.2-1.3) 12/23/24 06:50
AST 78 U/L (14-36) H 12/23/24 06:50
ALT 61 U/L (0-35) H 12/23/24 06:50
Alkaline Phosphatase 91 U/L (38-126) 12/23/24 06:50
Most recent labs reviewed.
Micro Results:
12/18/24 15:53 Urine Culture - Final
Urine Escherichia coli
Urine Culture Final 12/18/2024
CC: Greater than 100,000 CFU/ML Escherichia coli
Organism 1 Escherichia coli
1. Escherichia coli
M.I.C. RX
--------- ---
Amoxicillin/Potas. Clavulanate <=8/4 S
Ampicillin >16 R
Ampicillin/Sulbactam >16/8 R
Aztreonam <=4 S
Cefazolin 8 R
Cefepime <=2 S
Ceftazidime <=1 S
Ceftriaxone <=1 S
Ertapenem <=0.5 S
Ciprofloxacin <=0.25 S
Gentamicin <=2 S
Meropenem <=1 S
Nitrofurantoin-Urine Only <=32 S
Piperacillin/Tazobactam <=8 S
Tetracycline <=4 S
Tobramycin <=2 S
Trimethoprim/Sulfamethoxazole >2/38 R
Imaging:
12/18/2024 CXR (portable): lungs are clear. No pleural effusion or pneumothorax noted. Please see full dictation for additional detail.
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 There is severe stenosis of the proximal right cerebral artery, also unchanged. A large left temporal occipital region infarct is
redemonstrated. Small right pleural effusion. Please see full dictation for additional detail.
12/17/2024 MRI brain without contrast: a large confluent region of nonhemorrhagic acute/subacute infarction within the left temporal occipital lobe. Additional tiny acute/subacute left thalamic infarct is noted. Please see full dictation for
additional detail.
[2024-12-23] MEDS: BenGay-Like TOPICAL (13:00)
== END 2024-12-23 15:09 | DRG 61 ==
LOC: 4 EAST ACU 12:22
PROVIDERS: Nurse Practitioner Family; Nurse Practitioner Primary Care; Student in an Organized Health Care Education/Training Program; ADMITTING PHYSICIAN Hospitalist; ATTENDING PHYSICIAN Hospitalist; CONSULT PHYSICIAN Internal Medicine Gastroenterology; CONSULT PHYSICIAN Physical Medicine & Rehabilitation; CONSULT PHYSICIAN Psychiatry & Neurology Neurology; EMERGENCY PHYSICIAN Student in an Organized Health Care Education/Training Program; FAMILY PHYSICIAN Family Medicine; OTHER PHYSICIAN Internal Medicine Critical Care Medicine; OTHER PHYSICIAN Internal Medicine Infectious Disease
PROC: 3E03317 Introduction of Other Thrombolytic into Peripheral Vein, Percutaneous Approach (ICD-10-PCS; 2024-12-16)
PROC: 30233N1 Transfusion of Nonautologous Red Blood Cells into Peripheral Vein, Percutaneous Approach (ICD-10-PCS; 2024-12-18)
PROC: 0DC58ZZ Extirpation of Matter from Esophagus, Via Natural or Artificial Opening Endoscopic (ICD-10-PCS; 2024-12-18)
DX: I63.9 Cerebral infarction, unspecified (principal); K22.11 Ulcer of esophagus with bleeding; R57.1 Hypovolemic shock; R57.8 Other shock; K72.00 Acute and subacute hepatic failure without coma; G81.91 Hemiplegia, unspecified affecting right dominant side; R41.4 Neurologic neglect syndrome; D62 Acute posthemorrhagic anemia; F05 Delirium due to known physiological condition; D68.32 Hemorrhagic disorder due to extrinsic circulating anticoagulants; R47.01 Aphasia; E78.00 Pure hypercholesterolemia, unspecified; I73.9 Peripheral vascular disease, unspecified; I66.22 Occlusion and stenosis of left posterior cerebral artery; I66.11 Occlusion and stenosis of right anterior cerebral artery; I65.23 Occlusion and stenosis of bilateral carotid arteries; R47.1 Dysarthria and anarthria; H53.461 Homonymous bilateral field defects, right side; D72.823 Leukemoid reaction; M81.0 Age-related osteoporosis without current pathological fracture; E83.51 Hypocalcemia; E66.9 Obesity, unspecified; K26.9 Duodenal ulcer, unspecified as acute or chronic, without hemorrhage or perforation; I34.0 Nonrheumatic mitral (valve) insufficiency; R74.01 Elevation of levels of liver transaminase levels; E87.6 Hypokalemia; M48.02 Spinal stenosis, cervical region; J45.909 Unspecified asthma, uncomplicated; I70.8 Atherosclerosis of other arteries; G43.909 Migraine, unspecified, not intractable, without status migrainosus; I70.0 Atherosclerosis of aorta; I10 Essential (primary) hypertension; R82.71 Bacteriuria; M25.78 Osteophyte, vertebrae; K22.89 Other specified disease of esophagus; T45.615A Adverse effect of thrombolytic drugs, initial encounter; Y92.239 Unspecified place in hospital as the place of occurrence of the external cause; B96.20 Unspecified Escherichia coli [E. coli] as the cause of diseases classified elsewhere; Z96.653 Presence of artificial knee joint, bilateral; Z79.82 Long term (current) use of aspirin; Z79.899 Other long term (current) drug therapy; Z86.73 Personal history of transient ischemic attack (TIA), and cerebral infarction without residual deficits; Z87.440 Personal history of urinary (tract) infections; Z82.3 Family history of stroke; Z87.891 Personal history of nicotine dependence; Z87.19 Personal history of other diseases of the digestive system; Z87.11 Personal history of peptic ulcer disease; Z68.30 Body mass index [BMI] 30.0-30.9, adult
CPT/HCPCS: 0042T; 70450; 70496; 70498; 70551; 71045; 80048; 80053; 80061; 81003; 81015; 82962; 83036; 83735; 85014; 85018; 85025; 85027; 85379; 85610; 85652; 85730; 86850; 86900; 86901; 86920; 87077; 87086; 87186; 92507; 92523; 92526; 92610; 93005; 93306; 96374; 97112; 97116; 97129; 97163; 97167; 97530; 97535; 99291; J3101; P9016; Q9967